=== PATIENT | male | born 1960 | race Caucasian/White ===

== ENCOUNTER 2017-04-08 20:49 | Emergency (ER) | payer MEDICARE, SELFPAY ==
[2017-04-08 21:34] VITALS: BMI 24.3
--- NOTE | 2017-04-08 21:39 | XR_ITS ---
XR shoulder RT min 2V HISTORY: ITS.REASON: PAING AN POPPING ORDERING PHYSICIAN: Sabas Scott PATIENT AGE: 57 years COMPARISON: None FINDINGS: Mild osteoarthritic changes are present at the acromioclavicular joint. No fracture or dislocation evident. The glenohumeral joint is unremarkable. IMPRESSION: Mild osteoarthritic changes of the AC joint otherwise
[2017-04-08 23:01] VITALS: BP 136/94; PULSE 93; RESP 18; TEMP 37.4; O2SAT 99; BMI 24.3
--- NOTE | 2017-04-08 23:16 | HMH.EDUTC ---
[facility] [place] [facility] Disposition Clinical Impression: Right shoulder pain Qualifiers: Chronicity: acute Qualified Code(s): M25.511 - Pain in right shoulder AC (acromioclavicular) joint arthritis Qualifiers: Laterality: right Qualified Code(s): M19.011 - Primary osteoarthritis, right shoulder Disposition: Home, Self-Care Condition on Discharge: Good Instructions: How to Use a Sling, DI for Shoulder Pain, DI for Arthritis Additional Instructions: * sling tonight until you see PCP tomorrow then they can decide if they want you to continue to wear the sling or not. * Rest * ice 15-20 mins tonight and if that doesn't help, try heat * Toradol was given to help with pain tonight. * Keep already scheduled appt tomorrow. Be sure to tell them you were here so they can review xray. Referrals: Cortez Martinez MD [Primary Care Provider] - (Keep appt with MIKHAIL Avina tomorrow. ) Time of Disposition: 23:28 Medical Decision Making Vital Signs: 04/08/17 23:01 Temperature 99.3 F Temperature Source Temporal Artery Scan Pulse Rate [Right Radial] 93 H Respiratory Rate 18 Blood Pressure [Right Arm] 136/94 Blood Pressure Mean [Right Arm] 108 Blood Pressure Source [Right Arm] Automatic Cuff Blood Pressure Position [Right Arm] Sitting 02 Sat by Pulse Oximetry 99 Oxygen Delivery Method Room Air Orders (Tests/Meds): ED MEDICATIONS Discontinued Medications Generic Name Dose Route Start Last Admin Trade Name Freq PRN Reason Stop Dose Admin Ketorolac Tromethamine 30 mg 04/08/17 23:24 Toradol 30mg/Ml Vial IM 04/08/17 23:25 ONCE ONE - Radiology Data #1 Image(s): Shoulder Image Reviewed: Yes I have reviewed radiologist's interpretation AC joint arthritis but otherwise, negative - Jose Inquiry Pt receiving controlled substance: No [facility] [place] HPI - General Stated complaint: ao fell 3 mthns ago pain/popping right shoulder Time Seen by Provider: 04/08/17 23:16 Mode of Arrival: Family Vehicle Source of Information: Patient Limitations: No Limitations Description of Symptoms (Recalled from Triage Doc. by RN): PT STATES HE FELL ON THE CONCRETE 3 MONTHS AGO AND HIS RIGHT SHOULDER IS MORE TENDER AND FEELS LIKE IT IS POPPING. HEENT Symptoms (Recalled from RN notes): No Resp Symptoms (Recalled from RN notes): No Skin Symptoms (Recalled from RN notes): No MS Symptoms (Recalled from RN notes): Yes (RIGHT SHOULDER PAIN AND POPPING) Functional Status (Recalled from RN notes): NA - History of Present Illness Provider Complaint: c/o right shoulder pain x 3 months. Here tonight because he has appointment with primary care tomorrow and wants xrays. Has not been seen for shoulder pain since injury. Occasional ibuprofen isn't helping. Hasn't had any since maybe yesterday . I want to go ahead and have those xrays for tomorrow. Reports pain worse tonight. Fell on concrete 3 months ago. right onto this shoulder blade . Pain since that has been progressing. On gabapentin for legs and at last appt with PCP, asked for tramadol but hadn't heard back from them about it. Plans to ask for tramadol and an MRI tomorrow. Tonight he wants xray and something to help now so he can sleep. Pain worse with ROM. Denies N/T. PMHx of neck fusion, alcohol abuse (sober x 7 years per report), cirrhosis. Rvwd allergies. Rash with motrin but can take ibuprofen, aleve, advil, naproxen. Just can't take motrin - Related Data Previous Rx's Medication Instructions Recorded meclizine 25 mg tablet 25 mg PO ONCE PRN 90 Days #90 tab 03/07/17 albuterol sulfate HFA 90 2 puff INHALATION Q4H 90 Days #6.7 03/13/17 mcg/actuation aerosol inhaler g pantoprazole 40 mg tablet,delayed 40 mg PO BID 90 Days #180 tab 03/22/17 release Allergies Allergy/AdvReac Type Severity Reaction Status Date / Time ibuprofen [IBUPROFEN] Allergy Unknown Verified 04/08/17 23:05 Penicillins [PENICILLINS] Allergy Unknown Verified 04/08/17 23:05 - Worker's Comp Is this
--- NOTE | 2017-04-08 23:24 | ED_ITS ---
[facility] [place] Disposition Clinical Impression: Right shoulder pain Qualifiers: Chronicity: acute Qualified Code(s): M25.511 - Pain in right shoulder AC (acromioclavicular) joint arthritis Qualifiers: Laterality: right Qualified Code(s): M19.011 - Primary osteoarthritis, right shoulder Disposition: Home, Self-Care Condition on Discharge: Good Instructions: How to Use a Sling, DI for Shoulder Pain, DI for Arthritis Additional Instructions: * sling tonight until you see PCP tomorrow then they can decide if they want you to continue to wear the sling or not. * Rest * ice 15-20 mins tonight and if that doesn't help, try heat * Toradol was given to help with pain tonight. * Keep already scheduled appt tomorrow. Be sure to tell them you were here so they can review xray. Referrals: Cortez Martinez MD [Primary Care Provider] - (Keep appt with MIKHAIL Avina tomorrow. ) Time of Disposition: 23:28 Medical Decision Making Vital Signs: 04/08/17 23:01 Temperature 99.3 F Temperature Source Temporal Artery Scan Pulse Rate [Right Radial] 93 H Respiratory Rate 18 Blood Pressure [Right Arm] 136/94 Blood Pressure Mean [Right Arm] 108 Blood Pressure Source [Right Arm] Automatic Cuff Blood Pressure Position [Right Arm] Sitting 02 Sat by Pulse Oximetry 99 Oxygen Delivery Method Room Air Orders (Tests/Meds): ED MEDICATIONS Discontinued Medications Generic Name Dose Route Start Last Admin Trade Name Freq PRN Reason Stop Dose Admin Ketorolac Tromethamine 30 mg 04/08/17 23:24 Toradol 30mg/Ml Vial IM 04/08/17 23:25 ONCE ONE - Radiology Data #1 Image(s): Shoulder Image Reviewed: Yes I have reviewed radiologist's interpretation AC joint arthritis but otherwise, negative - Jose Inquiry Pt receiving controlled substance: No [facility] [place] HPI - General Stated complaint: ao fell 3 mthns ago pain/popping right shoulder Time Seen by Provider: 04/08/17 23:16 Mode of Arrival: Family Vehicle Source of Information: Patient Limitations: No Limitations Description of Symptoms (Recalled from Triage Doc. by RN): PT STATES HE FELL ON THE CONCRETE 3 MONTHS AGO AND HIS RIGHT SHOULDER IS MORE TENDER AND FEELS LIKE IT IS POPPING. HEENT Symptoms (Recalled from RN notes): No Resp Symptoms (Recalled from RN notes): No Skin Symptoms (Recalled from RN notes): No MS Symptoms (Recalled from RN notes): Yes (RIGHT SHOULDER PAIN AND POPPING) Functional Status (Recalled from RN notes): NA - History of Present Illness Provider Complaint: c/o right shoulder pain x 3 months. Here tonight because he has appointment with primary care tomorrow and wants xrays. Has not been seen for shoulder pain since injury. Occasional ibuprofen isn't helping. Hasn't had any since maybe yesterday . I want to go ahead and have those xrays for tomorrow. Reports pain worse tonight. Fell on concrete 3 months ago. right onto this shoulder blade . Pain since that has been progressing. On gabapentin for legs and at last appt with PCP, asked for tramadol but hadn't heard back from them about it. Plans to ask for tramadol and an MRI tomorrow. Tonight he wants xray and something to help now so he can sleep. Pain worse with ROM. Denies N/T. PMHx of neck fusion, alcohol abuse (sober x 7 years per report), cirrhosis. Rvwd allergies. Rash with motrin but can take ibuprofen, aleve, advil, naproxen. Just can't take motrin - Related Da
[2017-04-08 23:35] VITALS: BP 126/88; PULSE 89; RESP 18; TEMP 37.3; O2SAT 99
== END 2017-04-08 23:36 | disposition home or self-care (01) ==
LOC: ER 21:00 → UTC 21:04
PROVIDERS: Emergency Provider Nurse Practitioner Family; Family Provider Family Medicine; PCP Emergency Medicine
DX: M25.511 Pain in right shoulder (principal); M19.011 Primary osteoarthritis, right shoulder; Z88.0 Allergy status to penicillin; Z88.6 Allergy status to analgesic agent; J44.9 Chronic obstructive pulmonary disease, unspecified; I25.10 Atherosclerotic heart disease of native coronary artery without angina pectoris; Z95.5 Presence of coronary angioplasty implant and graft; E78.5 Hyperlipidemia, unspecified; I10 Essential (primary) hypertension; Z79.899 Other long term (current) drug therapy
CPT/HCPCS: G0463; 73030; 96372; 99202

== ENCOUNTER → 2017-04-09 12:30 | Outpatient (REF) | payer MEDICARE, SELFPAY ==
[2017-04-09 15:26] LABS: Alanine Aminotransferase 21 U/L (12-78); Albumin Level 3.8 gm/dL (3.4-5.0); Albumin/Globulin Ratio 1.2 (1.1-1.8); Alkaline Phosphatase 97 U/L (46-116); Anion Gap 12.3 mEq/L (5-15); Aspartate Amino Transferase 10 U/L (15-37); Bilirubin,Total 0.4 mg/dL (0.2-1.0); Blood Urea Nitrogen 13 mg/dL (7-18); Calcium 8.3 mg/dL (8.5-10.1); Carbon Dioxide 28 mmol/L (21.0-32.0); Chloride 103 mmol/L (98-107); Estimated Glomerular Filt Rate 77 ml/min (>60); GFR (African American) 94 ML/MIN (>60); Globulin 3.1 gm/dl (1.3-3.2); Glucose 77 mg/dL (74-106); Potassium 4.3 mmoL/L (3.5-5.1); Sodium 139 mmol/L (136-145); Total Protein,Serum 6.9 gm/dL (6.4-8.2)
== END ==
LOC: LAB 12:30
PROVIDERS: Visit Provider Nurse Practitioner Family
DX: R53.83 Other fatigue (principal)
CPT/HCPCS: 80053

== ENCOUNTER → 2017-07-30 16:10 | Outpatient (REF) | payer MEDICARE, SELFPAY ==
[2017-07-30 18:33] LABS: Amphetamine/Metha Screen,Urine Negative ng/mL (<1000); Barbiturates Screen,Urine Negative ng/mL (<200); Benzodiazepines Screen,Urine Negative ng/mL (200); Cannabinoid Screen,Urine Negative ng/mL (<50); Cocaine Screen,Urine Negative ng/g (<300); Methadone Screen,Urine Negative ng/mL (<300); Opiate Screen,Urine Negative ng/mL (<300); Phencyclidine Screen,Urine Negative ng/mL (<25)
== END ==
LOC: LAB 16:10
PROVIDERS: Visit Provider Nurse Practitioner Family
DX: Z79.899 Other long term (current) drug therapy (principal)
CPT/HCPCS: 80305

== ENCOUNTER → 2017-10-25 09:39 | Outpatient (REF) | payer MEDICARE, SELFPAY ==
[2017-10-25 18:12] LABS: Benzodiazepines Screen,Urine Negative ng/mL (<200); Cannabinoid Screen,Urine Negative ng/mL (<50); Cocaine Screen,Urine Negative ng/mL (<300); Methadone Screen,Urine Negative ng/mL (<300); Opiate Screen,Urine Negative ng/mL (<300); Phencyclidine Screen,Urine Negative ng/mL (<25)
[2017-10-25 19:03] LABS: Amphetamine/Metha Screen,Urine Negative ng/mL (<1000); Barbiturates Screen,Urine Negative ng/mL (<200)
== END ==
LOC: LAB 09:39
PROVIDERS: Visit Provider Nurse Practitioner Family
DX: M54.5 Low back pain (principal)
CPT/HCPCS: 80305

== ENCOUNTER → 2018-04-11 17:00 | Outpatient (CLI) | payer MEDICARE, SELFPAY ==
[2018-04-11 17:48] LABS: Basophils # 0.1 K/mm3 (0-0.2); Basophils % 0.8 % (0.1-2.0); Eosinophils # 0.1 K/mm3 (0.0-0.4); Eosinophils % 1.3 % (0.1-12.0); Hematocrit 50.4 % (42.0-52.0); Hemoglobin 16.5 g/dL (14.1-18.0); Lymphocytes # 2.3 K/mm3 (0.7-4.5); Lymphocytes % 29.6 % (10-50); Mean Corpuscular HGB Conc 32.7 g/dL (31.8-35.4); Mean Corpuscular Hemoglobin 29.8 pg (27.0-31.2); Mean Corpuscular Volume 91.1 fl (80-94); Mean Platelet Volume 7.5 fl (7.4-10.4); Monocytes # 0.4 K/mm3 (0.1-1.0); Monocytes % 5.2 % (1.7-9.3); Neutrophils # 4.9 K/mm3 (1.8-7.8); Neutrophils % 63.1 % (37.0-80.0); Platelet Count 309 K/mm3 (142-424); Red Blood Count 5.53 M/mm3 (4.60-6.20); White Blood Count 7.8 K/mm3 (4.8-10.8)
[2018-04-11 18:13] LABS: Alanine Aminotransferase 21 U/L (12-78); Albumin Level 4.2 gm/dL (3.4-5.0); Albumin/Globulin Ratio 1.3 (1.1-1.8); Alkaline Phosphatase 97 U/L (46-116); Anion Gap 12.6 mEq/L (5-15); Aspartate Amino Transferase 10 U/L (15-37); Bilirubin,Total 0.4 mg/dL (0.2-1.0); Blood Urea Nitrogen 15 mg/dL (7-18); Calcium 8.7 mg/dL (8.5-10.1); Carbon Dioxide 28 mmol/L (21.0-32.0); Chloride 104 mmol/L (98-107); Chol/HDL Ratio 4.9 (1-3.5); Cholesterol 206 mg/dL (140-200); Creatinine,Serum 1.06 mg/dL (0.70-1.30); Estimated Glomerular Filt Rate 72 ml/min (>60); Free T4 (Free Thyroxine) 1.08 ng/dl (0.76-1.46); GFR (African American) 87 ML/MIN (>60); Globulin 3.2 gm/dl (1.3-3.2); Glucose 79 mg/dL (74-106); HDL Cholesterol 42 mg/dL (27-67); LDL Cholesterol 144 mg/dL (0-130); Potassium 4.6 mmoL/L (3.5-5.1); Sodium 140 mmol/L (136-145); Total Protein,Serum 7.4 gm/dL (6.4-8.2); Triglycerides 99 mg/dL (30-200); VLDL Cholesterol 20 mg/dL (0-40)
[2018-04-11 20:00] LABS: Amphetamine/Metha Screen,Urine Negative ng/mL (<1000); Barbiturates Screen,Urine Negative ng/mL (<200); Benzodiazepines Screen,Urine Negative ng/mL (<200); Cannabinoid Screen,Urine Negative ng/mL (<50); Cocaine Screen,Urine Negative ng/mL (<300); Methadone Screen,Urine Negative ng/mL (<300); Opiate Screen,Urine Negative ng/mL (<300); Phencyclidine Screen,Urine Negative ng/mL (<25)
[2018-04-11 20:06] LABS: Hemoglobin A1C 5.4 % (0.0-7.0)
[2018-04-13 10:16] LABS: Vitamin D 25 Hydroxy 20.1 ng/mL (30.0-100.0)
== END ==
PROVIDERS: Visit Provider Nurse Practitioner Family
DX: R53.83 Other fatigue (principal); Z79.899 Other long term (current) drug therapy; E55.9 Vitamin D deficiency, unspecified
CPT/HCPCS: 80053; 80061; 80305; 82652; 83036; 84439; 84443; 85025

== ENCOUNTER → 2018-05-03 10:55 | Outpatient (CLI) | payer MEDICARE, SELFPAY ==
[2018-05-03 11:58] LABS: Amphetamine/Metha Screen,Urine Negative ng/mL (<1000); Barbiturates Screen,Urine Negative ng/mL (<200); Benzodiazepines Screen,Urine Negative ng/mL (<200); Cannabinoid Screen,Urine Negative ng/mL (<50); Cocaine Screen,Urine Negative ng/mL (<300); Methadone Screen,Urine Negative ng/mL (<300); Opiate Screen,Urine Negative ng/mL (<300); Phencyclidine Screen,Urine Negative ng/mL (<25)
[2018-05-12 09:26] LABS: Alprazolam Negative (Cutoff=100); Benzodiazepines Negative ng/mL (Cutoff=100); Clonazepam Negative (Cutoff=100); Flurazepam Negative (Cutoff=100); Lorazepam Negative (Cutoff=100); Midazolam Negative (Cutoff=100); Temazepam Negative (Cutoff=100); Triazolam Negative (Cutoff=100)
== END ==
PROVIDERS: Visit Provider Nurse Practitioner Family
DX: M25.511 Pain in right shoulder (principal); Z79.899 Other long term (current) drug therapy
CPT/HCPCS: 80305; 80346

== ENCOUNTER → 2018-05-09 10:44 | Outpatient (CLI) | payer MEDICARE, SELFPAY ==
--- NOTE | 2018-05-09 10:51 | XR_ITS ---
XR chest 2V HISTORY: ITS.REASON: cough ORDERING PHYSICIAN: Tatum Avina PATIENT AGE: 58 years Technique: PA and lateral chest COMPARISON Previous chest film from 05/29/2015 FINDINGS: Lungs well expanded clear with nothing definitely acute. Previous median sternotomy heart ramu and mediastinal structures appear satisfactory. Normal pulmonary vascularity No pneumothorax no pleural effusion. Chest wall unremarkable. There is mild likely old compression fracture at lower T-spine at approximately T9.. IMPRESSION Lungs clear with nothing definitely acute. No pneumonia s evident Median sternotomy. Mild old compression fracture lower T-spine
== END ==
PROVIDERS: PCP Nurse Practitioner Family; Visit Provider Nurse Practitioner Family
DX: F17.200 Nicotine dependence, unspecified, uncomplicated (principal); J44.9 Chronic obstructive pulmonary disease, unspecified; R05 Cough; R09.89 Other specified symptoms and signs involving the circulatory and respiratory systems
CPT/HCPCS: 71046

== ENCOUNTER → 2018-09-24 11:20 | Outpatient (POV) | payer MEDICARE, SELFPAY | PROVIDERS: Visit Provider Internal Medicine | DX: Z00.00 Encounter for general adult medical examination without abnormal findings (principal) ==

== ENCOUNTER → 2018-10-14 12:59 | Outpatient (CLI) | payer MEDICARE, SELFPAY ==
[2018-10-14 14:00] VITALS: PULSE 67
--- NOTE | 2018-10-14 14:33 | CT_ITS ---
PROCEDURE: CT LUNG SCREENING CLINICAL INDICATION: CURRENT TOBACCO USE Forty-four pack-year smoking history asymptomatic for lung cancer COMPARISON: No exams were available for comparison TECHNIQUE: The exam was performed on a GE Light Speed [address] scanner using 2.90 mGy CTDI. A low dose helical CT CHEST was performed on a multi-detector scanner. All CT scans at the facility use one or more dose reduction, viz: automated exposure control, ma/kV adjustment per patient size (including targeted exams where dose is matched to indication, i.e. head), or iterative reconstruction technique. The LDCT was performed in a facility that meets the criteria for the screening program. Data regarding this exam was submitted to ACR which is an approved registry. The order for this exam indicates that it came as a result of a lung cancer screening counseling shard decision-making visit that included all the elements required of such a visit including smoking cessation. The radiologist interpreting this exam meets the [facility] criteria for the LDCT lung cancer screening program. The exam is reported using the Lung-RADS classification scale and reported to the ACR registry. NOTE: This study was performed for the specific purposes of lung cancer screening and is not an alternative to diagnostic chest CT. RADIATION DOSE: CTDI vol(CT dose Index-volume) = 2.90mG DLP (Dose Length Product) = 107.86 mGcm FINDINGS: Prior CABG. Coronary artery calcification. COPD Three mm nodule right upper lobe anteriorly in this of pleural region. Calcified granuloma left lower lobe. Mild bibasilar atelectasis versus scarring. OTHER FINDINGS: There is mild wedging involving the T10 vertebral body. This appears old. Please correlate with clinical parameters. MRI if further value to determine the age of this finding if clinically warranted. IMPRESSION: Lung rads category 2 benign findings Recommendations: 12 month LDCT follow-up Dictated by: Toni Braden MD 10/20/2018 07:25 Electronically signed by Toni Braden MD in [place] 10/20/2018 07:26
== END ==
PROVIDERS: PCP Nurse Practitioner Family; Visit Provider Internal Medicine
DX: Z12.2 Encounter for screening for malignant neoplasm of respiratory organs (principal); Z87.891 Personal history of nicotine dependence; R06.02 Shortness of breath; J44.9 Chronic obstructive pulmonary disease, unspecified
CPT/HCPCS: 94060; 94618; 94640; 94726; 94729

== ENCOUNTER → 2018-11-05 10:21 | Outpatient (POV) | payer MEDICARE, SELFPAY | PROVIDERS: Visit Provider Internal Medicine | DX: Z00.00 Encounter for general adult medical examination without abnormal findings (principal) ==

== ENCOUNTER → 2019-06-18 11:15 | Outpatient (CLI) | payer MEDICARE, MEDICAID, SELFPAY ==
--- NOTE | 2019-06-18 11:20 | XR_ITS ---
PROCEDURE: XR HIP RT 2-3V W/PELVIS CLINICAL INDICATION: R Hip Pain COMPARISON: No exams were available for comparison FINDINGS: There are mild osteoarthritic changes of both hips seen on the AP view of the pelvis. Scattered pelvic phleboliths are noted. No acute fracture or dislocation. Vascular calcification present. No lytic or blastic change. There is some sclerosis of the right femoral head with some subchondral lucency noted on the abduction view. This does raises suspicion of avascular necrosis. MRI may provide further evaluation. IMPRESSION: Possible avascular necrosis of the right femoral head with mild osteoarthritic change. MRI may provide further evaluation. Dictated by: Toni Braden MD 06/18/2019 11:41 Electronically signed by Toni Braden MD in [place] 06/18/2019 11:41
== END ==
PROVIDERS: PCP Nurse Practitioner Family; Visit Provider Nurse Practitioner Family
DX: G62.9 Polyneuropathy, unspecified (principal); M25.551 Pain in right hip
CPT/HCPCS: 73502

== ENCOUNTER → 2019-07-01 07:50 | Outpatient (CLI) | payer MEDICARE, MEDICAID, SELFPAY ==
--- NOTE | 2019-07-01 07:50 | MR_ITS ---
PROCEDURE: MR HIP RT WO CON CLINICAL INDICATION: Avascular Necrosis R Hip Right hip pain COMPARISON: XR HIP RT 2-3V W/PELVIS from 06/18/2019 TECHNIQUE: Routine multiplanar multi echo sequences are performed without gadolinium enhancement. 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 This is hypointense on T1 with some heterogeneous hyperintensity on T2. The immediate subchondral region shows decreased T2 signal. These findings are consistent with avascular necrosis. There is a small right hip joint effusion. There is some edema in the right femoral neck and upper inner trochanteric region. There is a thin zone of decreased T1 signal along the lower periphery of the altered signal intensity. 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 The left hip has an unremarkable appearance.. 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 Small right hip joint effusion also noted. Incidental note is made of edema in the right femoral neck Dictated by: Toni Braden MD 07/02/2019 12:06 Electronically signed by Toni Braden MD in [place] 07/02/2019 12:06
== END ==
PROVIDERS: PCP Nurse Practitioner Family; Visit Provider Nurse Practitioner Family
DX: M87.051 Idiopathic aseptic necrosis of right femur (principal)
CPT/HCPCS: 73721

== ENCOUNTER → 2019-11-25 17:48 | Outpatient (CLI) | payer MEDICARE, MEDICAID, SELFPAY ==
[2019-11-25 18:08] LABS: Basophils # 0.1 K/mm3 (0-0.2); Basophils % 0.7 % (0.1-2.0); Eosinophils # 0.4 K/mm3 (0.0-0.4); Eosinophils % 4.4 % (0.1-12.0); Hemoglobin 14.9 g/dL (14.1-18.0); Lymphocytes # 2.5 K/mm3 (0.7-4.5); Lymphocytes % 30.2 % (10-50); Mean Corpuscular HGB Conc 33.1 g/dL (31.8-35.4); Mean Corpuscular Hemoglobin 29.6 pg (27.0-31.2); Mean Corpuscular Volume 89.4 fl (80-94); Mean Platelet Volume 7.7 fl (7.4-10.4); Monocytes # 0.6 K/mm3 (0.1-1.0); Monocytes % 6.7 % (1.7-9.3); Neutrophils # 4.8 K/mm3 (1.8-7.8); Platelet Count 342 K/mm3 (142-424); Red Blood Count 5.03 M/mm3 (4.60-6.20); Red Cell Distribution Width 13.7 % (11.5-17.5); White Blood Count 8.3 K/mm3 (4.8-10.8)
[2019-11-25 18:19] LABS: Chloride 106 mmol/L (98-107)
[2019-11-25 18:20] LABS: Sodium 142 mmol/L (136-145)
[2019-11-25 18:22] LABS: Alanine Aminotransferase 11 U/L (12-78); Albumin/Globulin Ratio 1.4 (1.1-1.8); Alkaline Phosphatase 80 U/L (38-126); Aspartate Amino Transferase 23 U/L (17-59); Bilirubin,Total 0.3 mg/dl (0.2-1.3); Blood Urea Nitrogen 9 mg/dl (9-20); Carbon Dioxide 28 mmol/L (22.0-30.0); Cholesterol 198 mg/dl (140-200); Estimated Glomerular Filt Rate 99 ml/min (>60); GFR (African American) 120 ML/MIN (>60); Globulin 2.8 g/dL (1.3-3.2); Total Protein,Serum 6.8 g/dl (6.3-8.2); Triglycerides 235 mg/dl (30-150); VLDL Cholesterol 47 mg/dL (0-40)
[2019-11-25 18:23] LABS: Glucose 91 mg/dl (74-100); HDL Cholesterol 40 mg/dl (40-60)
[2019-11-25 18:34] LABS: Direct LDL Cholesterol 131.53 mg/dL (100-129)
[2019-11-25 18:40] LABS: T4 (Thyroxine) 9.7 ug/dl (5.53-11.0)
[2019-11-25 18:54] LABS: Thyroid Stimulating Hormone 1.59 uIU/mL (0.465-4.68)
[2019-11-27 11:12] LABS: PSA, Free 0.23 ng/mL; Prostate Specific Ag 1.7 ng/mL (0.0-4.0)
== END ==
PROVIDERS: Visit Provider Nurse Practitioner Family
DX: G62.9 Polyneuropathy, unspecified (principal); I10 Essential (primary) hypertension; R53.83 Other fatigue; R06.02 Shortness of breath; Z12.5 Encounter for screening for malignant neoplasm of prostate
CPT/HCPCS: 80053; 80061; 84153; 84154; 84436; 84443; 85025

== ENCOUNTER 2019-12-01 16:39 | Observation (INO) | payer MEDICARE, MEDICAID, SELFPAY ==
[2019-12-01 16:41] VITALS: BP 103/79; PULSE 92; RESP 18; TEMP 36.6; O2SAT 100; BMI 23.6
[2019-12-01 17:05] LABS: Basophils # 0.1 K/mm3 (0-0.2); Basophils % 0.6 % (0.1-2.0); Eosinophils # 0.3 K/mm3 (0.0-0.4); Eosinophils % 2.1 % (0.1-12.0); Hematocrit 51.3 % (42.0-52.0); Hemoglobin 17.1 g/dL (14.1-18.0); Lymphocytes # 2.6 K/mm3 (0.7-4.5); Lymphocytes % 19.9 % (10-50); Mean Corpuscular HGB Conc 33.3 g/dL (31.8-35.4); Mean Corpuscular Hemoglobin 29.7 pg (27.0-31.2); Mean Corpuscular Volume 89.2 fl (80-94); Mean Platelet Volume 7.4 fl (7.4-10.4); Monocytes # 0.9 K/mm3 (0.1-1.0); Monocytes % 7.1 % (1.7-9.3); Neutrophils # 9.2 K/mm3 (1.8-7.8); Neutrophils % 70.2 % (37.0-80.0); Platelet Count 372 K/mm3 (142-424); Red Blood Count 5.75 M/mm3 (4.60-6.20); Red Cell Distribution Width 13.5 % (11.5-17.5); White Blood Count 13.1 K/mm3 (4.8-10.8)
[2019-12-01 17:06] LABS: Chloride 96 mmol/L (98-107); Sodium 138 mmol/L (136-145)
[2019-12-01 17:07] LABS: Potassium 3.3 mmoL/L (3.5-5.1)
[2019-12-01 17:09] LABS: Alanine Aminotransferase 15 U/L (12-78); Albumin Level 4.7 g/dl (3.5-5.0); Alkaline Phosphatase 92 U/L (38-126); Aspartate Amino Transferase 27 U/L (17-59); Bilirubin,Total 0.5 mg/dl (0.2-1.3); Blood Urea Nitrogen 14 mg/dl (9-20); Creatinine Clearance Estimated 53 mL/min (50-200); Estimated Glomerular Filt Rate 45 ml/min (>60); GFR (African American) 54 ML/MIN (>60)
[2019-12-01 17:10] LABS: Albumin/Globulin Ratio 1.4 (1.1-1.8); Anion Gap 13.3 mEq/L (5-15); Calcium 9.6 mg/dl (8.4-10.2); Carbon Dioxide 32 mmol/L (22.0-30.0); Globulin 3.4 g/dL (1.3-3.2); Glucose 81 mg/dl (74-100); Total Protein,Serum 8.1 g/dl (6.3-8.2)
[2019-12-01 17:29] VITALS: BP 110/70; PULSE 80; O2SAT 95
--- NOTE | 2019-12-01 17:29 | PC.NURSE ---
Dr Mackay paged.
--- NOTE | 2019-12-01 17:31 | PC.NURSE ---
speaking to dr maldonado
--- NOTE | 2019-12-01 17:32 | PC.NURSE ---
Pt's pcp paged.
--- NOTE | 2019-12-01 17:33 | HMH.EDGENADL ---
ED Disposition Clinical Impression: Dehydration, LAYLA (acute kidney injury) Leukocytosis Qualifiers: Leukocytosis type: unspecified Qualified Code(s): D72.829 - Elevated white blood cell count, unspecified Disposition: Admitted As Inpatient Condition on Discharge: Good Referrals: Loc Huffman APRN [Primary Care Provider] - - Critical Care Critical Care Time: No Attestation: On 12/01/19, the high probability of a clinically significant, sudden or life threatening deterioration of the following system(s) required my full and direct attention, intervention and personal management. The time I documented below is in addition to time spent performing reported procedures but includes the following listed in this critical care notation. Medical Decision Making - Medical Records Medical records reviewed: Yes: I reviewed the patient's medical records. - Jose Inquiry Pt receiving controlled substance: No Vital Signs: 12/01/19 16:41 12/01/19 17:29 Temperature 97.9 F Temperature Source Temporal Artery Scan Pulse Rate [Right] 92 H 80 Respiratory Rate 18 Blood Pressure [Right Arm] 103/79 L 110/70 Blood Pressure Mean [Right Arm] 87 83 Blood Pressure Source [Right Arm] Automatic Cuff Blood Pressure Position [Right Arm] Sitting 02 Sat by Pulse Oximetry 100 95 - Lab Data Lab Results 12/01/19 16:50: WBC 13.1 H, RBC 5.75, Hgb 17.1, Hct 51.3, MCV 89.2, MCH 29.7, MCHC 33.3, RDW 13.5, Plt Count 372, MPV 7.4, Neut % (Auto) 70.2, Lymph % (Auto) 19.9, [place] % (Auto) 7.1, Eos % (Auto) 2.1, Baso % (Auto) 0.6, Neut # (Auto) 9.2 H, Lymph # (Auto) 2.6, [place] # (Auto) 0.9, Eos # (Auto) 0.3, Baso # (Auto) 0.1 12/01/19 16:50: Sodium 138, Potassium 3.3 L, Chloride 96 L, Carbon Dioxide 32 H, Anion Gap 13.3, BUN 14, Creatinine 1.60 H, Estimated Creat Clear 53, Estimated GFR 45 L, Est GFR ( Amer) 54 L, Glucose 81, Calcium 9.6, Total Bilirubin 0.5, AST 27, ALT 15, Alkaline Phosphatase 92, Total Protein 8.1, Albumin 4.7, Globulin 3.4 H, Albumin/Globulin Ratio 1.4 Result diagrams: 12/01/19 16:50 12/01/19 16:50 Orders (Tests/Meds): ED MEDICATIONS Generic Name Dose Route Start Last Admin Trade Name Isacc PRN Reason Stop Dose Admin Sodium Chloride 1,000 mls @ 999 mls/hr 12/01/19 17:00 12/01/19 17:05 Sod Chlor 0.9% 1000ml Bag IV 12/01/19 18:00 999 mls/hr .Q1H1M MARKELL Administration ORDERS Category Date Time Status Covid-19 IgG/IgM ([facility]) Routine Lab 12/01/19 17:32 Ordered Medical Decision Narrative: 59-year-old male presenting for IV fluids at the request of PCP for clinical dehydration. Patient is nontoxic, afebrile, hemodynamically stable, oxygenating well on room air, nonfocal, neuro intact. Normal vitals on arrival. Creatinine is elevated today at 1.6 consistent with an LAYLA which is likely due to dehydration. He also has a leukocytosis of 13,000 and however no clinical signs or symptoms of infectious etiology. The rest of his CBC is actionable. I spoke to the physician who sent him here and we both agree that the patient should be admitted for rehydration. I also spoke with the admitting physician who will manage him inpatient. Patient's symptoms improved after fluids here. General Adult HPI - General Chief complaint: Recheck/Abnormal Lab/Rx Stated complaint: Sent by Dr. TREJO Time Seen by Provider: 12/01/19 17:00 Mode of Arrival: Ambulatory Limitations: No Limitations Description of Symptoms (Recalled from ER Triage Doc. by RN): Pt states Dr TREJO put him on a fluid pill and it has caused him to urinate perfusely and now he feels he is dehydrated. Pt states his muscle are drawing up and cuasing him pain. - History of Present Illness HPI narrative: This is a 59-year-old male who presents via request from PCP for rehydration. Patient is undergoing preoperative clearance for a total hip replacement and told his physician today that he had charley horses and numbness and tingling in his extr
[2019-12-01 18:02] LABS: Coronavirus 19 IgG Antibody Negative (Negative); Coronavirus 19 IgM Antibody Negative (Negative)
[2019-12-01 18:54] VITALS: BP 110/70; PULSE 80; RESP 18; TEMP 36.6; O2SAT 95
--- NOTE | 2019-12-01 19:11 | PC.NURSE ---
report given to renetta
[2019-12-01 20:00] VITALS: BP 103/78; PULSE 85; RESP 18; TEMP 36.8; O2SAT 98; BMI 21.6
[2019-12-01 21:00] VITALS: PULSE 85; RESP 18; O2SAT 98
[2019-12-02 04:00] VITALS: BP 115/78; PULSE 75; RESP 18; TEMP 36.4; O2SAT 98
[2019-12-02 05:07] VITALS: BMI 21.5
--- NOTE | 2019-12-02 06:09 | PC.NURSE ---
shift summary, pt has rested well t/o shift, has ambulated several times to bathroom, has had no complaints of any SOA, chest pain, N/V/D, remains on room air with O2 sats at 98%, expiratory wheezes noted in upper lobes, pt did complain of hip pain one time this shift but states that he cannot take acetaminophen due to liver issues, no further complaints of pain, systolic 103-115, HR 75-85
[2019-12-02 06:36] LABS: Basophils # 0.1 K/mm3 (0-0.2); Basophils % 0.7 % (0.1-2.0); Eosinophils # 0.3 K/mm3 (0.0-0.4); Eosinophils % 2.9 % (0.1-12.0); Hematocrit 45.2 % (42.0-52.0); Lymphocytes # 2.7 K/mm3 (0.7-4.5); Lymphocytes % 28.4 % (10-50); Mean Corpuscular HGB Conc 33.4 g/dL (31.8-35.4); Mean Corpuscular Hemoglobin 29.5 pg (27.0-31.2); Mean Corpuscular Volume 88.5 fl (80-94); Mean Platelet Volume 7.3 fl (7.4-10.4); Monocytes # 0.6 K/mm3 (0.1-1.0); Monocytes % 6.2 % (1.7-9.3); Neutrophils # 5.9 K/mm3 (1.8-7.8); Neutrophils % 61.9 % (37.0-80.0); Platelet Count 302 K/mm3 (142-424); Red Blood Count 5.11 M/mm3 (4.60-6.20); Red Cell Distribution Width 13.8 % (11.5-17.5); White Blood Count 9.5 K/mm3 (4.8-10.8)
[2019-12-02 06:42] LABS: Chloride 103 mmol/L (98-107); Sodium 139 mmol/L (136-145)
[2019-12-02 06:43] LABS: Potassium 3.6 mmoL/L (3.5-5.1)
[2019-12-02 06:46] LABS: Anion Gap 10.6 mEq/L (5-15); Blood Urea Nitrogen 14 mg/dl (9-20); Calcium 8.8 mg/dl (8.4-10.2); Carbon Dioxide 29 mmol/L (22.0-30.0); Creatinine Clearance Estimated 71 mL/min (50-200); Estimated Glomerular Filt Rate 69 ml/min (>60); GFR (African American) 83 ML/MIN (>60); Glucose 98 mg/dl (74-100)
[2019-12-02 07:43] LABS: Hemoglobin 15.1 g/dL (14.1-18.0)
--- NOTE | 2019-12-02 07:50 | HMH.PHAVTE ---
[facility] VTE Monitoring - Patient Demographics Admission date: 12/02/19 Report Date: 12/02/19 Time: 07:50 Allergies/Adverse Reactions: Patient Allergies ibuprofen [IBUPROFEN] Allergy (Unknown, Verified 12/01/19 20:00) Penicillins [PENICILLINS] Allergy (Unknown, Verified 12/01/19 20:00) Height: 1.78 m Weight: 68.294 kg Patient Problems: Current Active Problems Dehydration (Acute) LAYLA (acute kidney injury) (Acute) Leukocytosis (Acute) - VTE Risk Labs: VTE Related Lab Results Hgb 15.1 g/dL (14.1-18.0) D 12/02/19 06:18 Hct 45.2 % (42.0-52.0) 12/02/19 06:18 Plt Count 302 K/mm3 (142-424) 12/02/19 06:18 BUN 14 mg/dl (9-20) 12/02/19 06:18 Creatinine 1.10 mg/dl (0.66-1.25) D 12/02/19 06:18 Estimated Creat Clear 71 mL/min (50-200) 12/02/19 06:18 Was VTE Risk Assessment Performed: Yes VTE Score: 8 VTE Risk Level: Moderate Risk Clinical Trial Participant: No - Prophylaxis VTE Prophylaxis Ordered?: Yes Types of VTE Prophylaxis: TEDS Knee High
--- NOTE | 2019-12-02 07:55 | HMH.PHAINT ---
CLARIFIED HOME MEDICATION LIST WITH HOME PHARMACY
[2019-12-02 08:00] VITALS: BP 118/87; PULSE 84; RESP 18; TEMP 37.3; O2SAT 92
--- NOTE | 2019-12-02 09:16 | HMH.DCSUM ---
General - General Admission date:: 12/01/19 Discharge date: 12/02/19 Objective Vital signs: Temp Pulse Resp BP Pulse Ox 99.1 F 84 18 118/87 92 L 12/02/19 08:00 12/02/19 08:00 12/02/19 08:00 12/02/19 08:00 12/02/19 08:00 no acute distress - *Routine HEENT Exam Head: Present: normocephalic. Absent: tenderness of temporal artery ENT: Present: mucous membranes moist. Absent: sinus tenderness - *Routine Neck Exam Present: full ROM, trachea midline. Absent: JVD, tracheal deviation - *Routine Respiratory Exam Present: wheezes - *Routine Cardiovascular Exam Present: RRR - *Routine Abdominal Exam Present: soft, normoactive bowel sounds. Absent: tenderness, firm - *Routine Extremities Exam Present: full ROM, pulses intact. Absent: clubbing, edema - *Routine Skin Exam Present: intact, warm. Absent: cyanosis, erythema - *Routine Neurological Exam Present: alert, oriented X3. Absent: altered mental status - Routine Psychiatric Exam Present: normal affect, normal thought process, cooperative Results Labs on day of discharge: Labs from last 24 hours 12/02/19 12/02/19 12/01/19 06:18 06:18 16:50 WBC 9.5 D RBC 5.11 Hgb 15.1 D Hct 45.2 MCV 88.5 MCH 29.5 MCHC 33.4 RDW 13.8 Plt Count 302 MPV 7.3 L Neut % (Auto) 61.9 Lymph % (Auto) 28.4 [place] % (Auto) 6.2 Eos % (Auto) 2.9 Baso % (Auto) 0.7 Neut # (Auto) 5.9 Lymph # (Auto) 2.7 [place] # (Auto) 0.6 Eos # (Auto) 0.3 Baso # (Auto) 0.1 Sodium 139 Potassium 3.6 Chloride 103 Carbon Dioxide 29 Anion Gap 10.6 BUN 14 Creatinine 1.10 D Estimated Creat Clear 71 Estimated GFR 69 Est GFR ( Amer) 83 D Glucose 98 D Calcium 8.8 Total Bilirubin AST ALT Alkaline Phosphatase Total Protein Albumin Globulin Albumin/Globulin Ratio SARS-CoV-2 IgG Ab (Rapid) Negative SARS-CoV-2 IgM Ab (Rapid) Negative 12/01/19 12/01/19 16:50 16:50 WBC 13.1 H RBC 5.75 Hgb 17.1 Hct 51.3 MCV 89.2 MCH 29.7 MCHC 33.3 RDW 13.5 Plt Count 372 MPV 7.4 Neut % (Auto) 70.2 Lymph % (Auto) 19.9 [place] % (Auto) 7.1 Eos % (Auto) 2.1 Baso % (Auto) 0.6 Neut # (Auto) 9.2 H Lymph # (Auto) 2.6 [place] # (Auto) 0.9 Eos # (Auto) 0.3 Baso # (Auto) 0.1 Sodium 138 Potassium 3.3 L Chloride 96 L Carbon Dioxide 32 H Anion Gap 13.3 BUN 14 Creatinine 1.60 H Estimated Creat Clear 53 Estimated GFR 45 L Est GFR ( Amer) 54 L Glucose 81 Calcium 9.6 Total Bilirubin 0.5 AST 27 ALT 15 Alkaline Phosphatase 92 Total Protein 8.1 Albumin 4.7 Globulin 3.4 H Albumin/Globulin Ratio 1.4 SARS-CoV-2 IgG Ab (Rapid) SARS-CoV-2 IgM Ab (Rapid) - Additional Comments Rounded with Dr. Crouch, all orders per Dr. Crouch: 1. We will discharge home today 2. Follow-up with PCP in 1 week 3. Discharge Plan - Patient Discharge Instructions - Follow up Plan Home Medications: Home Medications Medication Instructions Recorded Confirmed Type albuterol sulfate 90 mcg/actuation 2 puff INHALATION Q4-6H PRN 90 10/07/19 12/01/19 Rx aerosol inhaler Days #3 units Atorvastatin Calcium [Lipitor 80mg 80 mg PO DAILY 12/01/19 12/01/19 History Tablet*] Fluoxetine HCl 20 mg PO DAILY 12/01/19 12/01/19 History Losartan/Hydrochlorothiazide 1 tab PO DAILY 12/01/19 12/02/19 History [Losartan-Hctz 50-12.5 mg Tab] Meclizine HCl [[employer] 2] 25 mg PO DAILYP PRN 12/01/19 12/02/19 History Nebivolol HCl [Bystolic] 5 mg PO DAILY 12/01/19 12/02/19 History Nitroglycerin 0.4 mg PO Q5MINP PRN 12/01/19 12/02/19 History Pantoprazole Sodium 40 mg PO BID 12/01/19 12/02/19 History Trazodone HCl 150 mg PO HSP PRN 12/01/19 12/02/19 History Prescriptions/Medication Reconciliation: No Action albuterol sulfate 90 mcg/actuation aerosol inhaler 2 puff INHALATION Q4-6H
--- NOTE | 2019-12-02 09:24 | HMH.HPDC ---
General - General Admission date:: 12/01/19 Discharge date: 12/02/19 *Admission Date: 12/02/19 *Chief complaint: Muscle Cramps *History of present illness: Patient presents to emergency department complaining of muscle cramps, numbness, and tingling of bilateral lower extremities and feeling dehydrated. He reports he was seen by cardiology while being worked up for surgery clearance for right hip replacement and started on losartan/HCTZ. He reports he was urinating profusely and was having charley horses. He denies N/V/D or fever/chills/body aches. He denies chest pain shortness of breath or cough [facility] History Medical History: Reports:: Chronic Obstructive Pulmonary Disease (COPD), Coronary Artery Disease, Depression, Hyperlipidemia, Hypertension, Myocardial Infarction Denies:: Cancer, Diabetes Mellitus Type 1, Diabetes Mellitus Type 2, MRSA *Have you ever received a pneumonia vaccine?: No *Have you received a flu vaccine this season?: No Other Medical History: Reports: Arthritis, Other Other Surgeries: Yes: CABG, Cardiac Catheterization, Cardiac Surgery, Hernia Repair, Other Amputation: No Fractures: No - *Social History Last grade of school completed: 9th or 10th Smoking Status: Current every day smoker Tobacco Type: cigarettes # Packs/Day (cigarettes): 1 #Yrs smoked (if former smoker): 40 Alcohol Intake: former Alcohol Intake Frequency:: 3 or more drinks per day Substance Use Type: denies use *Occupational Status:: disabled Household Members: spouse *Travel in the last 8 weeks: None - Psychiatric History Pschychiatric History:: Reports:: Depression Family Hx:: Heart Attack, Hypertension Review of Systems - Review of Systems Review of systems:: pertinent systems reviewed and negative unless documented below - Constitutional Reports lack of energy, Reports weakness, Denies body ache(s), Denies chills - Eyes Denies blind spots, Denies blurry vision - ENT Denies bleeding gums, Denies poor balance - *Cardiovascular Denies chest pain, Denies shortness of breath with activity - *Respiratory Denies chest congestion, Denies cough, Denies shortness of breath - *Gastrointestinal Denies abdominal pain - *Genitourinary Denies difficulty urinating, Denies side pain - *Musculoskeletal Reports muscle cramps, Reports muscle weakness, Denies neck pain, Denies numbness - Integumentary/Breasts Denies change in skin color, Denies yellowing of the skin - *Neurologic Denies abnormal walking, Denies memory loss - Psychiatric Denies abnormal sleep pattern, Denies lack of enjoyment - Endocrine Denies cold intolerance, Denies heat intolerance - Hematologic/Lymphatic Denies easy bleeding, Denies easy bruising - Allergic/Immunologic Denies itchy eyes, Denies tongue swelling Exam Vital signs and Labs for Last 24 Hours: Temp Pulse Resp BP Pulse Ox 99.1 F 84 18 118/87 92 L 12/02/19 08:00 12/02/19 08:00 12/02/19 08:00 12/02/19 08:00 12/02/19 08:00 Laboratory Results - last 24 hr 12/01/19 16:50: WBC 13.1 H, RBC 5.75, Hgb 17.1, Hct 51.3, MCV 89.2, MCH 29.7, MCHC 33.3, RDW 13.5, Plt Count 372, MPV 7.4, Neut % (Auto) 70.2, Lymph % (Auto) 19.9, Alger % (Auto) 7.1, Eos % (Auto) 2.1, Baso % (Auto) 0.6, Neut # (Auto) 9.2 H, Lymph # (Auto) 2.6, Alger # (Auto) 0.9, Eos # (Auto) 0.3, Baso # (Auto) 0.1 12/01/19 16:50: Sodium 138, Potassium 3.3 L, Chloride 96 L, Carbon Dioxide 32 H, Anion Gap 13.3, BUN 14, Creatinine 1.60 H, Estimated Creat Clear 53, Estimated GFR 45 L, Est GFR ( Amer) 54 L, Glucose 81, Calcium 9.6, Total Bilirubin 0.5, AST 27, ALT 15, Alkaline Phosphatase 92, Total Protein 8.1, Albumin 4.7, Globulin 3.4 H, Albumin/Globulin Ratio 1.4 12/01/19 16:50: SARS-CoV-2 IgG Ab (Rapid) Negative, SARS-CoV-2 IgM Ab (Rapid) Negative 12/02/19 06:18: WBC 9.5 D, RBC 5.11, Hgb 15.1 D, Hct 45.2, MCV 88.5, MCH 29.5, MCHC 33.4, RDW 13.8, Plt Count 302, MPV 7.3 L, Neut % (Auto) 61.9, Lymph % (Auto) 28.4, Mo
--- NOTE | 2019-12-02 17:55 | PC.NURSE ---
THIS RN PROVIDED D/C INSTRUCTIONS TO PATIENT AND SIGNIFICANT OTHER, VERBALIZED AN UNDERSTANDING.
== END 2019-12-02 12:42 | disposition home or self-care (01) ==
LOC: ER 17:39 → 2ND 18:09
PROVIDERS: Admitting Provider Emergency Medicine; Emergency Provider Physician Assistant; PCP Nurse Practitioner Family; Visit Provider Emergency Medicine
DX: E86.0 Dehydration (principal); N17.9 Acute kidney failure, unspecified; I25.10 Atherosclerotic heart disease of native coronary artery without angina pectoris; J44.9 Chronic obstructive pulmonary disease, unspecified; Z72.0 Tobacco use; I25.2 Old myocardial infarction; I10 Essential (primary) hypertension; Z95.1 Presence of aortocoronary bypass graft; E78.5 Hyperlipidemia, unspecified; Z88.0 Allergy status to penicillin; Z88.8 Allergy status to other drugs, medicaments and biological substances; Z79.52 Long term (current) use of systemic steroids; Z79.899 Other long term (current) drug therapy
CPT/HCPCS: 80048; 80053; 85025; 86328; 93306; 96365; 99283; G0378

== ENCOUNTER → 2019-12-02 13:27 | Outpatient (CLI) | payer MEDICARE, MEDICAID, SELFPAY ==
--- NOTE | 2019-12-02 13:28 | CA_ITS ---
APPROVED REPORT EXAM: Comprehensive 2D, Doppler, and color-flow Echocardiogram Scrub Tech: Mary Jo Granado RT(R) Ht: 5 ft 10 in Wt: 162lbs BSA: 1.91 BP: 156/98 mmHg Indications: CP, COPD, smoker, HTN, PRUITT, hyperlipidemia, SOA, preop clearance hip surgery, CAD, CABG 2D Dimensions LVOT 2.31 cm (M/F) 1.5-2.5 M-Mode Dimensions RVDd 2.85 cm (0.9-2.6) LA Diam 2.33 cm (1.9-4.0) LVDd 4.10 cm (3.5-5.7) Ao Diam 3.48 cm (2.0-3.7) LVDs 3.18 cm (3.5-5.7) IVSd 0.86 cm (0.6-1.1) PWd 0.75 cm (0.6-1.1) EF (Teich) 45.70% FS 22.40% EDV (Teich) 74.20 mL ESV (Teich) 40.30 mL LV Diastology E Decel Time 210.00 (160-240 msec) E/A Ratio 0.7 MED E' 7.80 (< 7 cm/sec) E'/MED E' Ratio 6.69 (>14) LAT E' 8.00 (<10 cm/sec) E/LAT E' Ratio 6.53 (>14) Mitral Valve MV E Max Kimani. 52.00 (40-130 cm/s) MV A Velocity 71.00 (40-130 cm/s) E/A Ratio 0.74 MV Decel. Time 210.00 (160-240 ms) MV PHT 62.00 ms Left Ventricle Left atrium is mildly enlarged, left ventricle is normal size, mild concentric left ventricular hypertrophy, visually estimated ejection fraction 55% with no regional wall motion abnormality, grade 1 diastolic dysfunction seen without tissue Doppler evidence of raise left atrial pressure. Right Ventricle Right atrium and right ventricle mildly enlarged with normal contractility. Aortic Valve Aortic valve is minimally thickened and fibrosed, there is no aortic stenosis or aortic insufficiency. Mitral valve is grossly normal, there is mild mitral regurgitation. Mitral Valve Mitral valve is grossly normal, there is mild mitral regurgitation. Tricuspid Valve Tricuspid valve is grossly normal, there is mild tricuspid regurgitation. Pulmonic Valve Pulmonic valve is poorly visualized. Great Vessels Aortic root is normal size. Pericardium No significant pericardial effusion noted. Conclusion 1. Mild biatrial enlargement, normal left ventricular size, mild concentric left ventricular hypertrophy, visually estimated ejection fraction 55% with no regional wall motion abnormality, grade 1 diastolic dysfunction seen without tissue Doppler evidence of raise left atrial pressure. 2. Mildly enlarged right ventricle with normal contractility. 3. Mild mitral and tricuspid regurgitation. 4. No significant pericardial effusion noted. Electronically signed by : Lino Torre, 12/02/2019 18:34:23
== END ==
PROVIDERS: PCP Nurse Practitioner Family; Visit Provider Nurse Practitioner Family
DX: E78.5 Hyperlipidemia, unspecified (principal); F17.200 Nicotine dependence, unspecified, uncomplicated; I10 Essential (primary) hypertension; I25.2 Old myocardial infarction; I25.708 Atherosclerosis of coronary artery bypass graft(s), unspecified, with other forms of angina pectoris; J44.9 Chronic obstructive pulmonary disease, unspecified; R06.00 Dyspnea, unspecified; R07.89 Other chest pain; Z01.810 Encounter for preprocedural cardiovascular examination; Z95.1 Presence of aortocoronary bypass graft
CPT/HCPCS: 93306

== ENCOUNTER → 2019-12-05 15:46 | Outpatient (CLI) | payer MEDICARE, MEDICAID, SELFPAY ==
[2019-12-05 18:26] LABS: Anion Gap 15.4 mEq/L (5-15); Blood Urea Nitrogen 15 mg/dl (9-20); Calcium 9.5 mg/dl (8.4-10.2); Carbon Dioxide 28 mmol/L (22.0-30.0); Chloride 101 mmol/L (98-107); Estimated Glomerular Filt Rate 69 ml/min (>60); GFR (African American) 83 ML/MIN (>60); Glucose 75 mg/dl (74-100); Potassium 4.4 mmoL/L (3.5-5.1); Sodium 140 mmol/L (136-145)
== END ==
PROVIDERS: Visit Provider Internal Medicine Cardiovascular Disease
DX: E78.5 Hyperlipidemia, unspecified (principal); I10 Essential (primary) hypertension; I25.708 Atherosclerosis of coronary artery bypass graft(s), unspecified, with other forms of angina pectoris; J44.9 Chronic obstructive pulmonary disease, unspecified; R06.00 Dyspnea, unspecified; R07.89 Other chest pain; Z95.1 Presence of aortocoronary bypass graft
CPT/HCPCS: 36415; 80048

== ENCOUNTER → 2019-12-08 06:08 | Outpatient (CLI) | payer MEDICARE, MEDICAID, SELFPAY ==
--- NOTE | 2019-12-08 06:09 | US_ITS ---
APPROVED REPORT Exam Type: Lower Extremity Segmental Pressures Hotel Assistant General Manager: Beverly Dominguez RDCS Indications Claudication: Rest Pain: Current Smoker History of Smoking CAD Pressures/Indices Right Indices Left Indices Brachial 148.00 mmHg Brachial 139.00 mmHg Low Thigh 147.00 mmHg 0.99 Low Thigh 146.00 mmHg 0.99 Calf 152.00 mmHg 1.03 Calf 149.00 mmHg 1.01 Ankle(PT) 141.00 mmHg 0.95 Ankle(PT) 148.00 mmHg 1.00 Ankle(DP) 144.00 mmHg 0.97 Ankle(DP) 152.00 mmHg 1.03 Digit 140.00 mmHg 0.95 Digit 128.00 mmHg 0.86 Findings NORMAL PULSES NORMAL WAVEFORMS R KATE 1.0 L KATE 1.0 R TBI 1.0 LTBI .9 Conclusion NORMAL PULSES NORMAL WAVEFORMS R KATE 1.0 L KATE 1.0 R TBI 1.0 LTBI .9 Normal appearing resting noninvasive lower extremity arterial study. Electronically signed by : Toni Braden MD 12/09/2019 12:55:57
--- NOTE | 2019-12-08 06:09 | CA_ITS ---
APPROVED REPORT Exam: Pharmacologic Technologist: Beatriz Salinas Ht: 5 ft 10 in Wt: 162 lbs BSA: 1.91 m2 HR: 81 bpm BP: 135/92 mmHg Indications: Chest pain, CAD Medical History Medications: Amlodipine,,,,, Pantoprazole,,,,, Atorvastatin,,,,, Albuterol,,,,, Meclizine,,,,, Fluoxetine,,,,, Nitroglycerin,,,,, Trazodone,,,,, NeBivolol,,,,, Stress Test Details Test: LEXISCAN HR Resting HR: 76 bpm Max Heart Rate (APMHR): 162 bpm Max HR Achieved: 112 bpm Target HR (85% APMHR): 137 bpm % of APMHR: 69 Recovery HR: 96 bpm BP Resting BP: 135.0/92.0 mmHg Max BP: 143.0/85.0 mmHg Recovery BP: 143.0/85.0 mmHg ECG Clinical Reason for Termination: Completed Protocol Exercise duration: 04:00 min Highest Stage Achieved: Exercise capacity: 1.0 METs Stress ECG Conclusion Resting ECG: Normal sinus rhythm. Symptoms: None Arrhythmias/Ectopy: None ST-T Changes: < 1.[address] segment changes. Conclusion: Non-diagnostic lexiscan stress test. Patient received the infusion per protocol without chest pain. ST segment changes or arrhythmias. See the nuclear report for further information. Electronically signed by : Lino Torre, 12/09/2019 05:25:28
--- NOTE | 2019-12-08 06:09 | NM_ITS ---
APPROVED REPORT Exam: Nuclear Stress Test Indication: SOB, Pre op, CAD, CABG, HTN, High cholesterol, Tobacco use, Family history Patient Location: Outpatient Stress Tech: Beatriz Salinas ME Tech:Gabriela Dean, ARRT, RT (R)(N) Ht: 5 ft 10 in Wt: 150 lbs HR: 81 bpm BP: 135/92 mmHg BSA: 1.85 m2 BMI: 21.5 History: SOB, Pre op, CAD, CABG, HTN, High cholesterol, Tobacco use, Family history Procedure: Patient received a 0.4 mg of intravenous Lexiscan, resting heart rate 81 bpm, resting blood pressure 135/92 mmHg, with Lexiscan maximum heart rate achived was 111 bpm which is Less than 85 % of the maximum predicted heart rate and blood pressure was 104/70 mmHg. With Lexiscan, patient denied any complaint of chest pain. Electrocardiogram Resting electrocardiogram showed sinus rhythm, with Lexiscan there is less than 1.[address] segment depression noted from the baseline EKG. The EKG portion of the Lexiscan Myoview is nondiagnostic. Cardiac Stress and Resting SPECT Images: Cardiac Stress and Resting SPECT images were obtained using technetium 99m Myoview 29.1 mCi stress and 9.52 mCi at rest. Gated SPECT for the analysis of segmental wall motion and calculation of the ejection fraction also done. Cardiac stress and resting SPECT images show uniform myocardial activity, computer derived ejection fraction is 58% with no regional wall motion abnormality, right ventricle is normal size and contractility. Conclusion: 1. The EKG portion of the Lexiscan Myoview is nondiagnostic. 2. No scintigraphic evidence of reversible ischemia seen, computer derived ejection fraction is 58% with no regional wall motion abnormality, right ventricle is normal size and contractility. 3. Normal Lexiscan Myoview study. Electronically signed by : Lino Torre, 12/09/2019 05:32:03
--- NOTE | 2019-12-08 06:09 | US_ITS ---
PROCEDURE: US ABD. AORTA SCREENING CLINICAL INDICATION: rule out AAA Evaluate for abdominal aortic aneurysm COMPARISON: No exams were available for comparison FINDINGS: There is mild ectasia the mid upper abdominal aorta at 2.8 cm in maximum AP dimension. The lower abdominal aorta measures 2.3 cm. Right common iliac is 1.2 cm in left common iliac is 1 cm. Plaque is noted in the abdominal aorta IMPRESSION: Mild dilatation of the upper abdominal aorta at 2.8 cm. Dictated by: Toni Braden MD 12/08/2019 13:06 Toni Braden MD in [place] 12/08/2019 13:06
--- NOTE | 2019-12-08 06:09 | CA_ITS ---
APPROVED REPORT Ethylene Plant Helper: FRANKIE Laterality: Bilateral Indications: bilateral carotid bruits Risk Factors Hypertension: Doppler Spectral Velocity Analysis ECA (R) 55.20/18.60 cm/s ECA (L) 54.00/10.20 cm/s dICA (R) 61.00/7.10 cm/s dICA (L) 50.80/8.60 cm/s Nadine (R) 59.10/9.00 cm/s Nadine (L) 55.10/8.60 cm/s pICA (R) 45.60/10.90 cm/s pICA (L) 64.90/10.30 cm/s dCCA (R) 41.70/12.20 cm/s dCCA (L) 49.40/14.80 cm/s pCCA (R) 67.40/15.40 cm/s pCCA (L) 89.90/18.00 cm/s Vert (R) 41.10/11.60 cm/s Vert (L) 35.30/15.00 cm/s Findings Duplex evaluation demonstrates stenosis of the right proximal internal carotid artery <20%. Duplex evaluation demonstrates stenosis of the left proximal internal carotid artery <20%. Duplex evaluation demonstrates antegrade flow of the bilateral Vertebral Arteries. Electronically signed by : Toni Braden MD 12/08/2019 18:34:21
--- NOTE | 2019-12-08 09:00 | HMH.ITSHM ---
Current Home Medications as stated by this patient Damion Guerrier or retention representative. []TRAZODONE NITRO MECLIZINE ATORVASTATIN ALBUTEROL PANTOPRAZOLE BYSTOLIC FLUOXETINE AMLODIPINE
== END ==
PROVIDERS: PCP Nurse Practitioner Family; Visit Provider Internal Medicine Cardiovascular Disease
DX: R09.89 Other specified symptoms and signs involving the circulatory and respiratory systems (principal); E78.5 Hyperlipidemia, unspecified; F17.200 Nicotine dependence, unspecified, uncomplicated; I10 Essential (primary) hypertension; R06.00 Dyspnea, unspecified; R07.89 Other chest pain; I73.9 Peripheral vascular disease, unspecified; I25.708 Atherosclerosis of coronary artery bypass graft(s), unspecified, with other forms of angina pectoris; J44.9 Chronic obstructive pulmonary disease, unspecified; Z95.1 Presence of aortocoronary bypass graft
CPT/HCPCS: 76705; 78452; 93017; 93880; 93923; A9502; J2785

== ENCOUNTER → 2020-01-13 09:00 | Outpatient (CLI) | payer MEDICARE, MEDICAID, SELFPAY ==
--- NOTE | 2020-01-13 09:11 | XR_ITS ---
PROCEDURE: XR HIP RT 2-3V W/PELVIS CLINICAL INDICATION: right hip pain COMPARISON: CR XR HIP RT 2-3V W/PELVIS from 06/18/2019 FINDINGS: There has been interval progression of the avascular necrosis of the right femoral head. There is a concave area of lucency in the right femoral head with some minimal cortical collapse. Subchondral sclerosis is present. There are mild osteoarthritic changes of the right hip. There are mild osteoarthritic changes of the left hip IMPRESSION: Progression of avascular necrosis of the right femoral head now with some cortical collapse Dictated by: Toni Braden MD 01/13/2020 17:27 Toni Braden MD in [place] 01/13/2020 17:27
== END ==
PROVIDERS: PCP Nurse Practitioner Family; Visit Provider Orthopaedic Surgery
DX: M25.551 Pain in right hip (principal)
CPT/HCPCS: 73502

== ENCOUNTER → 2020-01-27 15:32 | Outpatient (CLI) | payer MEDICARE, MEDICAID, SELFPAY ==
[2020-01-28 12:09] LABS: Basophils # 0.1 K/mm3 (0-0.2); Eosinophils # 0.2 K/mm3 (0.0-0.4); Eosinophils % 2.2 % (0.1-12.0); Hematocrit 47.4 % (42.0-52.0); Hemoglobin 14.8 g/dL (14.1-18.0); Lymphocytes # 2.2 K/mm3 (0.7-4.5); Lymphocytes % 27.3 % (10-50); Mean Corpuscular HGB Conc 31.1 g/dL (31.8-35.4); Mean Corpuscular Hemoglobin 29.3 pg (27.0-31.2); Mean Platelet Volume 9.7 fl (7.4-10.4); Monocytes # 0.5 K/mm3 (0.1-1.0); Monocytes % 5.7 % (1.7-9.3); Neutrophils % 63.8 % (37.0-80.0); Platelet Count 332 K/mm3 (142-424); Red Blood Count 5.05 M/mm3 (4.60-6.20); Red Cell Distribution Width 14.1 % (11.5-17.5); White Blood Count 7.9 K/mm3 (4.8-10.8)
[2020-01-28 12:15] LABS: Alanine Aminotransferase 14 U/L (12-78); Albumin Level 4.1 g/dl (3.5-5.0); Albumin/Globulin Ratio 1.5 (1.1-1.8); Alkaline Phosphatase 97 U/L (38-126); Anion Gap 11.7 mEq/L (5-15); Aspartate Amino Transferase 25 U/L (17-59); Bilirubin,Total 0.6 mg/dl (0.2-1.3); Blood Urea Nitrogen 14 mg/dl (9-20); Calcium 9.1 mg/dl (8.4-10.2); Carbon Dioxide 27 mmol/L (22.0-30.0); Chloride 102 mmol/L (98-107); Estimated Glomerular Filt Rate 87 ml/min (>60); GFR (African American) 105 ML/MIN (>60); Globulin 2.8 g/dL (1.3-3.2); Glucose 118 mg/dl (74-100); Potassium 3.7 mmoL/L (3.5-5.1); Sodium 137 mmol/L (136-145); Total Protein,Serum 6.9 g/dl (6.3-8.2)
== END ==
PROVIDERS: Visit Provider Orthopaedic Surgery
DX: Z01.818 Encounter for other preprocedural examination (principal); M16.11 Unilateral primary osteoarthritis, right hip
CPT/HCPCS: 80053; 85025

== ENCOUNTER → 2020-01-31 13:49 | Outpatient (CLI) | payer MEDICARE, MEDICAID, SELFPAY ==
[2020-01-31 14:09] LABS: Microscopic, Urine URINE MICROSCOPIC (MICROSCOPIC)
[2020-01-31 14:44] LABS: Appearance,Urine CLEAR (Clear); Bilirubin,Urine Negative (Negative); Blood, Urine Negative (Negative); Color,Urine YELLOW (Yellow); Glucose,Urine (UA) Negative (Negative); Ketones,Urine Negative (Negative); Leukocyte Esterase,Urine Negative (Negative); Nitrate,Urine Negative (Negative); Protein,Urine Negative (Negative); Specific Gravity, Urine 1.015 (1.005-1.030); Urobilinogen,Urine 0.2 EU/dl (0.2)
[2020-01-31 15:04] LABS: Coronavirus 19 IgG Antibody Negative (Negative); Coronavirus 19 IgM Antibody Negative (Negative)
[2020-01-31 15:05] LABS: Squamous Epithelial Cell,Urine Occasional #/hpf (0-5)
== END ==
PROVIDERS: PCP Nurse Practitioner Family; Visit Provider Orthopaedic Surgery
DX: Z01.818 Encounter for other preprocedural examination (principal); M16.11 Unilateral primary osteoarthritis, right hip
CPT/HCPCS: 36415; 81001; 86328; 86850

== ENCOUNTER 2020-02-02 12:17 | Inpatient (IN) | payer MEDICARE, MEDICAID, SELFPAY ==
[2020-02-02] VITALS (20 sets, daily range): BP systolic 126–147; BP diastolic 56–94; PULSE 56–78; RESP 12–20; TEMP 36.3–43; O2SAT 94–100; BMI 22.4; BMI 23.6
--- NOTE | 2020-02-02 06:30 | XR_ITS ---
PROCEDURE: XR CHEST PORTABLE CLINICAL HISTORY: pre surgery hypertension, smoking history COMPARISON: CR CXR1 CHEST-PORTABLE from 05/29/2015 CR CXR2V XR chest 2V from 05/09/2018 FINDINGS: The cardiomediastinal silhouette and pulmonary vascularity are within normal limits. There are sternal wire sutures. The lungs are clear without infiltrates, suspicious nodules, or pleural effusions. There is a small calcified granuloma left lower lobe ,there is mild degenerate change right shoulder No acute bony abnormalities. IMPRESSION: No acute findings. Dictated by: Dr. Mukesh Hurd MD 02/02/2020 07:34 Dr. Mukesh Hurd MD in [place] 02/02/2020 07:34
--- NOTE | 2020-02-02 10:30 | HMH.ANESCL ---
[facility] Anesthesia Checklist - Patient Identification Patient Identification: Arm Band, Verbal (Name & ) - Structural Data Planned Operative Procedure/s: Right BIN lateral position Consent for Planned Operative Procedure(s) Verified: Yes Verified Documents: Surgical Consent, History and Physical, Cardiac Clearance - NPO Status Verified Time NPO: 00:00 - Chart Verification Results Verified: CBC, BMP - Additional verifications Anesthesia Reactions: No Hx Blood Transfusions: No Blood Transfusion Reaction: No - Airway Assessment C-Spine Mobility Assessed: Yes (MP 2, TMD 3) TMJ Mobility Assessed: Yes Dentition: Edentulous - Neurological Assessment Level of Consciousness: Awake, Alert, Appropriate, Follows Commands Hx Seizures: No Numbness or tingling in extremities: Yes (Bilateral feet) - Anesthesia Plan Anesthesia Risk discussed: Yes ASA Class: III Anesthesia Type: Spinal [facility] History I have reviewed the patient's past medical history: Yes Medical History: Reports:: Chronic Obstructive Pulmonary Disease (COPD), Coronary Artery Disease, Depression, Gastroesophageal Reflux Disease(GERD), Hyperlipidemia, Hypertension, Myocardial Infarction Denies:: Cancer, Diabetes Mellitus Type 1, Diabetes Mellitus Type 2, Internal Pacemaker, MRSA, Seizures *Have you ever received a pneumonia vaccine?: Yes *Have you received a flu vaccine this season?: Yes Other Medical History: Reports: Arthritis, Other. Denies: Blood Transfusion Reaction Anesthesia experience/problems:: None Other Surgeries: Yes: CABG, Cardiac Catheterization, Cardiac Surgery, Hernia Repair, Other. No: Pacemaker Amputation: No Fractures: No - *Social History Last grade of school completed: 9th or 10th Smoking Status: Current every day smoker Tobacco Type: cigarettes # Packs/Day (cigarettes): 1 #Yrs smoked (if former smoker): 40 Alcohol Intake: former Alcohol Intake Frequency:: 3 or more drinks per day Substance Use Type: denies use *Occupational Status:: disabled Housing: house Household Members: significant other, family *Travel in the last 8 weeks: None - Psychiatric History Pschychiatric History:: Reports:: Depression Family Hx:: Cancer, Coronary Artery Disease, Diabetes, Alcoholism
--- NOTE | 2020-02-02 11:26 | HMH.ANESI ---
[facility] Anesthesia Record Part I Intake, IV Amount: 1,700 Estimated blood loss (mL): 150 Urine output (mL): 200 Blood Pressure: 146/72 SaO2: 97 Pulse Rate: 78 Respiratory Rate: 16 Temperature: 97.4 F Patient is:: Drowsy, Stable Stable to PACU at:: 11:20
--- NOTE | 2020-02-02 11:30 | XR_ITS ---
PROCEDURE: XR HIP RT 2-3V W/PELVIS CLINICAL INDICATION: s/p total right hip arthroplasty COMPARISON: CR XR HIP RT 2-3V W/PELVIS from 01/13/2020 FINDINGS: The total hip arthroplasty normal period the prosthetic acetabulum is fixated to the right iliac bone buys single threaded screw. The medullary stem is well positioned within the proximal femur. Mild postsurgical changes of the soft tissues is noted IMPRESSION: Satisfactory postop appearance right total hip arthroplasty Dictated by: Dr. Mukesh Hurd MD 02/02/2020 12:08 Dr. Mukesh Hurd MD in [place] 02/02/2020 12:08
--- NOTE | 2020-02-02 12:04 | HMH.OPNOTE ---
Date of procedure: 02/02/20 Pre-op Diagnosis:: 1. Avascular necrosis of femoral head, right hip 2. Osteoarthritis, right hip Post-op Diagnosis:: Same Procedure performed:: Uncemented total hip arthroplasty, right hip Surgeon:: Allen Esqueda MD [employer] Consultant(s):: Joana Trotter MARKETING MANAGER HEALTH COMMUNICATIONS:: Marcus Good Anesthesia: spinal Estimated blood loss (mL): 150 Clinical Note:: Patient is a 59-year-old male who has avascular necrosis of the femoral head with secondary osteoarthritis of his right hip unresponsive to conservative management. The AVN/arthritis is causing severe pain and significant disability and has not responded well to conservative management. He cannot even take a few steps without pain and he is using a cane to help with mobilization. The pain also is affecting his lifestyle, activities of daily living and significantly impacting his sleep. He is also at a high risk of falls from his arthritis. Therefore a total hip arthroplasty is indicated to relieve pain and the help prevent the disability and risk of falls. Please refer to my office note for full details. Operative findings:: Intraoperatively, moderate osteoarthritis of the hip joint was noted. The femoral head was somewhat misshapen and osteophytes were noted on both the acetabulum and the femoral head. The capsule was thickened and range of motion was decreased. The bone quality is good. Operative note:: On the day of the procedure the patient and family were met in the preoperative area and the patient was positively identified. A physical examination was performed and documented. The operative site was appropriately marked and initialed by me. I again reviewed the diagnosis, natural history and management options in detail including both nonsurgical and surgical. We discussed the proposed surgery, risks and benefits and alternatives in detail. The complications discussed include but are not limited to infection, injury to nerves, blood vessels and tendons, DVT and PE, fracture, limb length inequality, dislocation, implant malpositioning, implant failure, squeaking, loosening, acetabular wear, osteolysis, periprosthetic femur fracture, heterotopic ossification, abductor weakness and limp, incomplete relief of pain, likely need for further surgery in future including revision, anesthetic complications including heart attack, stroke and even . We also discussed the postoperative recovery and rehabilitation. He verbalized a good understanding and wished to proceed with the proposed surgery. The consent form was reviewed and signed. The patient was brought to the operating room and a spinal anesthesia was administered by the timber hewer. The patient was then positioned in the LEFT lateral decubitus position with the RIGHT hip facing up. We used Wixon hip positioner for this. All the bony prominences were appropriately padded. The RIGHT hip was then prepped with isopropyl alcohol followed by chlorhexidine and draped in the usual sterile fashion. The entire operative team wore isolation suits and the Operating Room traffic was controlled. The skin incision was marked for a posterior approach to the hip joint. The perineum and the operative site were sealed off with Ioban drape. A preprocedure timeout was performed as per hospital protocol identifying the patient, correct surgery and correct site. Administration of prophylactic IV antibiotics (IV Ancef and vancomycin) was confirmed with the timber hewer. We have also administered IV tranexamic acid pre and postop, to reduce the perioperative bleeding. A posterior approach was used to the RIGHT hip joint. The skin incision was made centering over the posterior part of the greater trochanter extending posteriorly in a curved fashion across the buttock. An electrocautery was used for hemostasis. The dissection was carried through the subcutaneous tissue down to the fascia david. The fascia david and gluteus fascia were split in line with the incision and a Charnley ret
--- NOTE | 2020-02-02 12:30 | HMH.HP ---
*Admission Date: 02/02/20 *Chief complaint: Right hip pain *History of present illness: Patient is a 59-year-old male admitted to the inpatient service today, 02/02/2020, after an uneventful right total hip arthroplasty. 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 His right hip pain has been gradually getting worse and he is now having difficulty walking. He localizes his pain to the anterior aspect of the right hip with radiation into the upper thigh. He states that the pain is severe most of the time and at worst he rates his pain a 10 out of 10. He states that the pain has increasingly begun to impact his mobility and interfere with his activities of daily living. He also reports night pain and frequent sleep disturbances. He reports that standing for long periods of time, walking, and twisting/turning aggravate his pain. His pain has failed to respond satisfactorily to conservative measures including NSAIDs, rest, and activity modification. He has history of excessive intake of alcohol in the past. He is also a chronic smoker. He has history of COPD and thinks he may have had steroids occasionally for management of exacerbations of his COPD. He does not work due to being disabled. His medical history includes hypertension, hyperlipidemia, coronary artery disease, COPD, depression and arthritis. He is not a known diabetic. He has history of coronary artery bypass surgery. A total hip arthroplasty is indicated to reduce the risks of falls, as well as improve his pain, mobility, and quality of life. The surgical and nonsurgical alternatives were discussed in detail with the patient as well as the risks and benefits of surgery. Please refer to my office note for full details. This afternoon postoperatively, the patient is lying comfortably in bed. He denies any nausea or vomiting and states that he is eating/drinking well. He denies any other symptoms/concerns at this time. [facility] History I have reviewed the patient's past medical history: Yes Medical History: Reports:: Chronic Obstructive Pulmonary Disease (COPD), Coronary Artery Disease, Depression, Gastroesophageal Reflux Disease(GERD), Hyperlipidemia, Hypertension, Myocardial Infarction Denies:: Cancer, Diabetes Mellitus Type 1, Diabetes Mellitus Type 2, Internal Pacemaker, MRSA, Seizures *Have you ever received a pneumonia vaccine?: Yes *Have you received a flu vaccine this season?: Yes Other Medical History: Reports: Arthritis, Other. Denies: Blood Transfusion Reaction Anesthesia experience/problems:: None Other Surgeries: Yes: CABG, Cardiac Catheterization, Cardiac Surgery, Hernia Repair, Other. No: Pacemaker Amputation: No Fractures: No - *Social History Last grade of school completed: 9th or 10th Smoking Status: Current every day smoker Tobacco Type: cigarettes # Packs/Day (cigarettes): 1 #Yrs smoked (if former smoker): 40 Alcohol Intake: former Alcohol Intake Frequency:: 3 or more drinks per day Substance Use Type: denies use *Occupational Status:: disabled Housing: house Household Members: significant other, family *Travel in the last 8 weeks: None - Psychiatric History Pschychiatric History:: Reports:: Depression Family Hx:: Cancer, Coronary Artery Disease, Diabetes, Alcoholism Review of Systems - Review of Systems Review of systems:: pertinent systems reviewed and negative unless documented below - Constitutional Denies chills, Denies fever(s) - Eyes Denies change in vision - ENT Denies abnormal hearing, Denies change in voice, Denies dental pain - *Cardiovascular Denies chest pain, Denies shortness of breath - *Respiratory Denies chest congestion, Denies shortness of breath - *Gastrointestinal Denies abdominal pain, Denies change in bowel habits - *Genitourinary Denies difficulty urinating - *Musculoskeletal Reports abnormal walking, Reports joint pain, Reports limited joint movem
[2020-02-02 12:38] LABS: Microscopic,Cath URINE MICROSCOPIC (MICROSCOPIC)
[2020-02-02 12:43] LABS: Appearance,Urine/Cath CLEAR (Clear); Bilirubin,Cath Negative (Negative); Blood, Urine/Cath Negative (Negative); Color,Urine/Cath YELLOW (Yellow); Glucose,Urine/Cath (UA) Negative (Negative); Ketones,Urine/Cath Negative (Negative); Leukocyte Esterase,Cath Negative (Negative); Nitrate,Cath Negative (Negative); Protein,Urine/Cath Negative (Negative); Specific Gravity, Urine/Cath 1.025 (1.005-1.030); Urobilinogen,Cath 0.2 EU/dl (0.2)
[2020-02-02 12:53] LABS: RBC,Urine/Cath Occasional # /hpf (0-3); Squamous Epithelial Ur./Cath Occasional #/hpf (0-5)
--- NOTE | 2020-02-02 13:34 | P.CONPHA_ITS ---
[facility] Pharmacy VTE Monitoring - Patient Demographics Admission date: 02/02/20 Report Date: 02/02/20 Time: 13:35 Allergies/Adverse Reactions: Patient Allergies ibuprofen [IBUPROFEN] Allergy (Unknown, Verified 02/02/20 06:28) Unknown allergy reaction Penicillins [PENICILLINS] Allergy (Unknown, Verified 02/02/20 06:28) Unknown allergy reaction Height: 1.78 m Weight: 74.843 kg Patient Problems: Current Active Problems Avascular necrosis of bone of right hip (Acute) Osteoarthritis of right hip (Acute) S/P total hip arthroplasty (Acute) - VTE Risk Was VTE Risk Assessment Performed: No VTE Score: 5 VTE Risk Level: Low Risk - Prophylaxis VTE Prophylaxis Ordered?: Yes Types of VTE Prophylaxis: IPCS Thigh High, Pharmacological Location of Applied Device: Bilateral Lower Extremeties Pharmacologic Type: Other (XARELTO)
--- NOTE | 2020-02-02 14:52 | HMH.OTEV ---
OT Inpatient Evaluation Rehab OT IP Evaluation Start: 02/02/20 12:21 Freq: ONCE Status: Complete Protocol: Document 02/02/20 13:56 DOMINIQUEKIM (Rec: 02/02/20 14:52 PATRICIA [id number]) Rehab OT IP Assessment Subjective History Patient is a 59-year-old male who has avascular necrosis of the femoral head with secondary osteoarthritis of his right hip unresponsive to conservative management. The AVN/arthritis is causing severe pain and significant disability and has not responded well to conservative management. He cannot even take a few steps without pain and he is using a cane to help with mobilization. The pain also is affecting his lifestyle, activities of daily living and significantly impacting his sleep. He is also at a high risk of falls from his arthritis. Therefore a total hip arthroplasty is indicated to relieve pain and the help prevent the disability and risk of falls. Patient underwent uncemented total hip arthroplasty R hip on 02/02/20. Subjective Yeah I can try to sit up. Patient instructed to complete supine->sit @ EOB with usage of proper hand/foot placement for bed mobility tasks. Patient completed task requiring Min A. Patient sat @ EOB ~5 mins with no support and no LOB. Patient verbalize numbness in B LE during evaluation and patient did not stand 2* safety. Patient completed EOB->supine requiring Min A. Left Patient laying in bed with needs met at end of session. Objective Patient Orientation Person,Place,Name,Age,Birthday ,Year,Situation Upper Extremity Gross ROM WFL Bed Mobility bed mobilit
--- NOTE | 2020-02-02 15:11 | SUR.PHASEI ---
Patient woke c/o numbness in BLE, although he was able to move BLE. Patient had abduction pillow fastened to legs, which was also upsetting to him. Multiple times attempts were made to assure patient he was safe, surgery was done, the numbness he was feeling was good r/t not having pain, and that he would regain feeling in a couple of hours. Patient was having difficulty opening his eyes and keeping them opened. At one time patient attempted to get out of bed; pushing himself up with his arms and swinging his legs to the left side of his bed. Patient calmed before leaving PACU with use of therapeutic conversation.
--- NOTE | 2020-02-02 16:48 | SW/DCPLANNER ---
Addendum entered by Desiree Mead 02/04/20 14:24: Farhana with [facility] stated that patient information has been reviewed and services will begin over the weekend for this patient. [facility]. Addendum entered by Desiree Mead 02/04/20 11:27: Patient will need home health services at time of discharge. Patient is agreeable to home health services and does not have a preference as to which agency. [facility] can not begin services till Sunday. Patient information and order has been faxed to [facility] for: senior living, physical therapy and occupational therapy. Patient may discharge home later today or tomorrow. [facility] once [facility] information is reviewed. Addendum entered by Desiree Mead 02/03/20 11:08: Roseline with [facility] stated that patient information has been reviewed: walker will be delivered to [facility] and bedside commode will be delivered to patients home. Patient will discharge home tomorrow pending no setbacks. Addendum entered by Desiree Mead 02/03/20 10:10: Patient information and order has been faxed to [facility] per patient request for a rolling walker and bedside commode. I will follow up with [facility] once patient information is reviewed. Discharge date is unknown at this time. Original Note: I spoke with patient this evening regarding discharge plans. Patient stated that he resides at home with family. Patient stated that his plan is to return home once medically stable for discharge. Patient stated that he does not have a walker at home at this time. I will follow up with patient tomorrow to further discuss discharge plans: home health vs outpatient PT and DME needed at home.
[2020-02-02 17:45] LABS: Basophils # 0.1 K/mm3 (0-0.2); Basophils % 0.4 % (0.1-2.0); Eosinophils # 0.2 K/mm3 (0.0-0.4); Hematocrit 40.5 % (42.0-52.0); Hemoglobin 13.1 g/dL (14.1-18.0); Lymphocytes # 2.1 K/mm3 (0.7-4.5); Lymphocytes % 16.7 % (10-50); Mean Corpuscular HGB Conc 32.4 g/dL (31.8-35.4); Mean Corpuscular Hemoglobin 29.2 pg (27.0-31.2); Mean Corpuscular Volume 90.2 fl (80-94); Monocytes # 0.7 K/mm3 (0.1-1.0); Monocytes % 5.3 % (1.7-9.3); Neutrophils # 9.4 K/mm3 (1.8-7.8); Neutrophils % 75.7 % (37.0-80.0); Platelet Count 265 K/mm3 (142-424); Red Blood Count 4.49 M/mm3 (4.60-6.20); Red Cell Distribution Width 13.9 % (11.5-17.5); White Blood Count 12.5 K/mm3 (4.8-10.8)
[2020-02-02 17:51] LABS: Chloride 104 mmol/L (98-107); Potassium 4.4 mmoL/L (3.5-5.1); Sodium 139 mmol/L (136-145)
[2020-02-02 17:54] LABS: Alanine Aminotransferase 14 U/L (12-78); Albumin Level 3.2 g/dl (3.5-5.0); Albumin/Globulin Ratio 1.3 (1.1-1.8); Alkaline Phosphatase 85 U/L (38-126); Anion Gap 7.4 mEq/L (5-15); Aspartate Amino Transferase 29 U/L (17-59); Bilirubin,Total 0.3 mg/dl (0.2-1.3); Blood Urea Nitrogen 13 mg/dl (9-20); Calcium 8.4 mg/dl (8.4-10.2); Carbon Dioxide 32 mmol/L (22.0-30.0); Creatinine Clearance Estimated 85 mL/min (50-200); Estimated Glomerular Filt Rate 77 ml/min (>60); GFR (African American) 93 ML/MIN (>60); Globulin 2.5 g/dL (1.3-3.2); Glucose 118 mg/dl (74-100); Total Protein,Serum 5.7 g/dl (6.3-8.2)
--- NOTE | 2020-02-02 19:49 | PC.NURSE ---
A&OX4. PT HAS TOLERATED RA WELL THROUGHOUT SHIFT. RESPIRATIONS REGULAR AND UNLABORED. LUNG SOUNDS BILATERALLY CLEAR. NO COUGH NOTED. ACTIVE BOWEL SOUNDS HEARD IN ALL 4 QUADRANTS. SOFT AND NONTENDER ABDOMEN. ABDUCTOR PILLOW IN PLACE. SCUD NOTED TO L LEG. PT EDUCATED ON HOW TO USE INCENTIVE SPIROMETER AND ENCOURAGED TO USE 10 TIMES EVERY HOUR WHILE AWAKE. PT RECEIVED SCHEDULED PAIN MEDS PER APR AND HASN'T NEEDED ANY ADDITIONAL PRN PAIN MEDS THUS FAR. [employer] SALES EQUAL. +2 PULSES NOTED THROUGHOUT. YOUSSEF CATHETER IN PLACE W CLEAR YELLOW URINE NOTED. NO KINKS NOTED. PT IS CURRENTLY RESTING IN BED W CALL LIGHT WITHIN REACH. BED IN LOWEST POSITION. VSS. WILL CONTINUE TO MONITOR.
[2020-02-03] VITALS (7 sets, daily range): BP systolic 134–156; BP diastolic 76–93; PULSE 62–95; RESP 16–18; TEMP 36.4–37.4; O2SAT 92–96; BMI 24.0
[2020-02-03 06:59] LABS: Chloride 104 mmol/L (98-107)
[2020-02-03 07:00] LABS: Potassium 4.1 mmoL/L (3.5-5.1); Sodium 135 mmol/L (136-145)
--- NOTE | 2020-02-03 07:00 | PC.NURSE ---
Pt has rested well this shift. C/O some discomfort this shift to (R) hip. DSG intact. Pt refused abductor pillow. Education given. Pt also declined ice packs. Pt did not want to take carvedilol as ordered last night. Pt stated that he would speak with doctor about medication. VSS Remains on RA. No other concerns. Will continue to monitor.
[2020-02-03 07:02] LABS: Chol/HDL Ratio 3.6 (1-3.5); Cholesterol 96 mg/dl (140-200); HDL Cholesterol 27 mg/dl (40-60); Triglycerides 114 mg/dl (30-150); VLDL Cholesterol 23 mg/dL (0-40)
[2020-02-03 07:03] LABS: Anion Gap 4.1 mEq/L (5-15); Blood Urea Nitrogen 14 mg/dl (9-20); Calcium 8.3 mg/dl (8.4-10.2); Carbon Dioxide 31 mmol/L (22.0-30.0); Creatinine Clearance Estimated 87 mL/min (50-200); Estimated Glomerular Filt Rate 77 ml/min (>60); GFR (African American) 93 ML/MIN (>60); Glucose 102 mg/dl (74-100)
[2020-02-03 07:10] LABS: Basophils # 0.1 K/mm3 (0-0.2); Basophils % 0.5 % (0.1-2.0); Eosinophils # 0.1 K/mm3 (0.0-0.4); Eosinophils % 1.4 % (0.1-12.0); Hematocrit 39.8 % (42.0-52.0); Hemoglobin 13.3 g/dL (14.1-18.0); Lymphocytes # 1.5 K/mm3 (0.7-4.5); Lymphocytes % 15.4 % (10-50); Mean Corpuscular HGB Conc 33.4 g/dL (31.8-35.4); Mean Corpuscular Hemoglobin 29.7 pg (27.0-31.2); Mean Corpuscular Volume 88.9 fl (80-94); Mean Platelet Volume 7.3 fl (7.4-10.4); Monocytes # 0.7 K/mm3 (0.1-1.0); Monocytes % 6.8 % (1.7-9.3); Neutrophils # 7.3 K/mm3 (1.8-7.8); Neutrophils % 75.9 % (37.0-80.0); Platelet Count 252 K/mm3 (142-424); Red Blood Count 4.48 M/mm3 (4.60-6.20); White Blood Count 9.6 K/mm3 (4.8-10.8)
[2020-02-03 07:13] LABS: Direct LDL Cholesterol 43.89 mg/dL (100-129)
--- NOTE | 2020-02-03 07:42 | HMH.PHAINT ---
MEDICATION RECONCILIATION COMPLETED ON PATIENT USING EXTERNAL FILL HISTORY FROM PHARMACY AND LIST FROM MD OFFICE. -BOOKER CHOWDARYD
--- NOTE | 2020-02-03 08:09 | P.PN_ITS ---
[facility] Anesthesia Record Part II Discharge Time: 12:04 Destination: Medical Surgical Department PACU nurse assessment reviewed?: Yes Patient Condition:: Good Anesthesia Complications:: None Swallowing reflex intact?: Yes Cyanosis?: No Blood Pressure: 134/76 Pulse Rate: 62 Temperature: 97.5 F Mental Status: Alert & Oriented Pain level:: 0 Nausea and/or vomitting:: None Intake, IV Amount: 0
--- NOTE | 2020-02-03 09:04 | HMH.CONS ---
*Admission Date: 02/02/20 *Reason for consult:: Medical Management *History of present illness: 59-year-old male patient resting in bed quietly he has refused his abductor pillow and polar pack to right hip. Purpose of age explained to patient and importance of the use, he verbalizes understanding and is still refusing abductor pillow. He reports his pain is at a tolerable level. Elastoplast dressing clean dry and intact to right hip Queen is in place draining clear yellow urine. Discussed tobacco cessation, patient reports we will discuss at PCP appointment. He underwent an Uncemented total hip arthroplasty, right hip 02/02/2020 due to Avascular necrosis of femoral head, right hip and Osteoarthritis, right hip. He is very familiar to us in Primary Care and has a past medical history of CAD, COPD, HLD, hypertension, old NM and a past CABG [facility] History Medical History: Reports:: Chronic Obstructive Pulmonary Disease (COPD), Coronary Artery Disease, Depression, Gastroesophageal Reflux Disease(GERD), Hyperlipidemia, Hypertension, Myocardial Infarction Denies:: Cancer, Diabetes Mellitus Type 1, Diabetes Mellitus Type 2, Internal Pacemaker, MRSA, Seizures *Have you ever received a pneumonia vaccine?: No *Have you received a flu vaccine this season?: Yes Other Medical History: Reports: Arthritis, Other. Denies: Blood Transfusion Reaction Anesthesia experience/problems:: None Other Surgeries: Yes: CABG, Cardiac Catheterization, Cardiac Surgery, Colonoscopy, Hernia Repair, Other. No: Pacemaker Amputation: No Fractures: No - *Social History Last grade of school completed: 9th or 10th Smoking Status: Current every day smoker Tobacco Type: cigarettes # Packs/Day (cigarettes): 1 #Yrs smoked (if former smoker): 40 Alcohol Intake: never Alcohol Intake Frequency:: 3 or more drinks per day Substance Use Type: denies use *Occupational Status:: disabled Housing: house Household Members: significant other, children *Travel in the last 8 weeks: None - Psychiatric History Pschychiatric History:: Reports:: Depression Family Hx:: Cancer, Heart Attack Review of Systems - Review of Systems Review of systems:: pertinent systems reviewed and negative unless documented below - Constitutional Denies anorexia, Denies body ache(s) - Eyes Denies change in vision, Denies double vision - ENT Denies difficulty swallowing, Denies dizziness - *Cardiovascular Reports shortness of breath, Denies chest pain, Denies rapid, pounding, or irregular heartbeat - *Respiratory Reports cough, Reports shortness of breath, Denies change in phlegm color, Denies chest congestion - *Gastrointestinal Denies abdominal pain, Denies change in bowel habits - *Musculoskeletal Reports abnormal walking, Reports joint pain, Reports back pain, Reports limited joint movement, Denies numbness - Integumentary/Breasts Denies bleeding lesions, Denies yellowing of the skin - *Neurologic Reports abnormal walking, Denies abnormal hearing, Denies confusion - Psychiatric Denies abnormal sleep pattern, Denies anxiety - Endocrine Denies cold intolerance, Denies rapid, pounding, or irregular heartbeat - Hematologic/Lymphatic Denies easy bleeding, Denies easy bruising - Allergic/Immunologic Denies GI upset with certain foods, Denies tongue swelling Meds Home Medications Medication Instructions Recorded Confirmed Type Fluoxetine HCl 20 mg PO DAILY 12/01/19 02/02/20 History atorvastatin 80 mg tablet 80 mg PO HS #90 tab 12/04/19 02/02/20 Rx meclizine 25 mg tablet 25 mg PO DAILY PRN tab 12/19/19 02/02/20 History nitroglycerin 0.4 mg sublingual 0.4 mg SUBLINGUAL Q5MINP PRN tab 12/19/19 02/03/20 History tablet trazodone 150 mg tablet 150 mg PO HS tab 12/19/19 02/02/20 History tramadol 50 mg tablet 50 mg PO TID PRN #21 tab 01/27/20 02/02/20 Rx Mupirocin [Centany] 1 applic TP BID 02/02/20 02/03/20 History Nebivolol HCl [Bystolic] 10 mg PO DAILY 02/02/20
--- NOTE | 2020-02-03 09:52 | PC.NURSE ---
Pt will need a rollling walker rather than a cane due to gait and mobility issues. Pt will also need a BSC due to distance to restroom in home.
--- NOTE | 2020-02-03 09:56 | HMH.PTEV ---
Physical Therapy Evaluation Rehab PT IP Evaluation Start: 02/02/20 12:21 Freq: ONCE Status: Active Protocol: Document 02/03/20 09:38 PHORNE (Rec: 02/03/20 09:56 PHORNE [id number]) Subjective/History History History 59 yowm adm to [facility] for R BIN due to AVN. PMH of COPD, CABG, NC, CAD. He reports he lives with significant other and has no steps to enter the home, he was indepedent with all activity prior to adm. Subjective Subjective Pt reports R LE pain as expected post-op. Rehab PT IP Eval Objective Appearance Patient Behavior Appropriate Patient Orientation Person,Place,Time Difficulty following instructions none Speech Pattern Clear Ambulation Patient Able to Ambulate Yes Ambulation Observation IP General Gait Pattern Observation Antalgic Gait,Wide Based Gait, Decrease Stride Lngth (R), Decrease Stride Lngth (L) Ambulation Distance (feet) 15 Ambulation Assistive Device Rolling Walker Ambulation Ability Contact Guard/Hand Hold Balance Ability to Arise Able, uses arms to help Sitting Balance Steady, safe Standing Balance Steady, wide stance Dynamic Sitting Balance Ability Good Dynamic Standing Balance Ability Good Transfers Bed Transfer Ability Contact Guard/Hand Hold Chair Transfer Ability Contact Guard/Hand Hold Sit to Stand Bed Transfer Ability Contact Guard/Hand Hold Sit to Stand Chair Transfer Ability Contact Guard/Hand Hold ROM All Extremities PT ROM Status WFL MMT All Extremities PT MMT WFL Abnormal MMT Grade except R LE grossly 3/5 Rehab PT IP prob,goals,plan Problems Date of Evaluation: 02/03/20 PT IP Problems Bed Mobility,Transfers,Gait Rehab Potential Rehab Potential Good Equipment Needs Assistive Devices Rolling / Wheeled Walker Plan PT Intervention Plan Bed Mobility,Transfers,Gait, Therapeutic Exercise PT Plan Frequency BID Duration LOS Discharge Goals Bed Transfer Ability Supervision/Stand by Sit to Stand Chair Transfer Ability Supervision/Stand by Ambulation Assistive Device Rolling Walker Ambulation Distance (feet) 30 Discharge Plan PT Discharge Plan Pt is appropriate to return home once medically stable. G -code Required No Eval Complexity Eval Charge Codes
--- NOTE | 2020-02-03 14:14 | HMH.ORTHPN ---
Subjective Date: 02/03/20 Time: 12:45 Principal diagnosis: S/p total hip arthroplasty, right Interval history: Patient is status post right total hip arthroplasty post op day #1. Patient is sitting out in the chair; says he is doing well and reports no problems. Patient has minimal pain and says it's well-controlled with medication. He reports some nausea but no vomiting. No history of any cough, chest pain, shortness of breath or palpitations. Patient says he is eating and drinking well. No history of any distal tingling or numbness. PN: Obj Ex Vital signs: Temp Pulse Resp BP Pulse Ox 97.5 F L 62 18 134/76 93 L 02/03/20 08:10 02/03/20 08:10 02/03/20 07:50 02/03/20 08:10 02/03/20 07:50 Narrative: Laboratory Results - last 24 hr 02/02/20 17:34: WBC 12.5 H, RBC 4.49 L, Hgb 13.1 L, Hct 40.5 L, MCV 90.2, MCH 29.2, MCHC 32.4, RDW 13.9, Plt Count 265, MPV 8.0, Neut % (Auto) 75.7, Lymph % (Auto) 16.7, Republic % (Auto) 5.3, Eos % (Auto) 2.0, Baso % (Auto) 0.4, Neut # (Auto) 9.4 H, Lymph # (Auto) 2.1, Republic # (Auto) 0.7, Eos # (Auto) 0.2, Baso # (Auto) 0.1 02/02/20 17:34: Sodium 139, Potassium 4.4, Chloride 104, Carbon Dioxide 32 H, Anion Gap 7.4, BUN 13, Creatinine 1.00, Estimated Creat Clear 85, Estimated GFR 77, Est GFR ( Amer) 93, Glucose 118 H, Calcium 8.4, Total Bilirubin 0.3, AST 29, ALT 14, Alkaline Phosphatase 85, Total Protein 5.7 L, Albumin 3.2 L, Globulin 2.5, Albumin/Globulin Ratio 1.3 02/03/20 05:48: WBC 9.6, RBC 4.48 L, Hgb 13.3 L, Hct 39.8 L, MCV 88.9, MCH 29.7, MCHC 33.4, RDW 14.0, Plt Count 252, MPV 7.3 L, Neut % (Auto) 75.9, Lymph % (Auto) 15.4, Republic % (Auto) 6.8, Eos % (Auto) 1.4, Baso % (Auto) 0.5, Neut # (Auto) 7.3, Lymph # (Auto) 1.5, Republic # (Auto) 0.7, Eos # (Auto) 0.1, Baso # (Auto) 0.1 02/03/20 05:48: Sodium 135 L, Potassium 4.1, Chloride 104, Carbon Dioxide 31 H, Anion Gap 4.1 L, BUN 14, Creatinine 1.00, Estimated Creat Clear 87, Estimated GFR 77, Est GFR ( Amer) 93, Glucose 102 H, Calcium 8.3 L 02/03/20 05:48: Triglycerides 114, Cholesterol 96 L, LDL Cholesterol Direct 43.89 L, VLDL Cholesterol 23, HDL Cholesterol 27 L, Cholesterol/HDL Ratio 3.6 H Exam General appearance: alert, active, awake, no acute distress Cardiovascular: regular rate & rhythm, normal peripheral pulses Respiratory: No respiratory distress noted, speaks in full sentences ABD: soft and non tender Neuro: alert, awake, oriented x 3 Psych: Appropriate mood and affect Genitourinary: Catheter in situ. On examination of the lower extremities the limb lengths are equal. Thigh and calf are soft and nontender. On examination of the right hip the dressings are clean, dry and intact. There is no soakage of the dressings. Distal pulses are 2+. Distal sensation is intact to light touch throughout. No motor deficits noted distally. Postoperative check x-ray satisfactory with good alignment of the prosthesis and stable fixation. - Urinary Catheter Management Queen Cath placed during this visit: no Progress Note: A&P (1) Avascular necrosis of bone of right hip Status: Acute (2) Osteoarthritis of right hip Status: Acute (3) S/P total hip arthroplasty Status: Acute (4) Old myocardial infarction Status: Acute (5) COPD (chronic obstructive pulmonary disease) Status: Chronic (6) Tobacco dependence syndrome Status: Acute (7) HLD (hyperlipidemia) Status: Acute (8) HTN (hypertension) Status: Acute (9) CAD (coronary artery disease) Status: Chronic (10) Neuropathy Status: Chronic Assessment and Plan for All Diagnoses:: I have reviewed the clinical and operative findings and procedure performed progress with the patient. I have given a paper copy of the postoperative x-rays. Patient is doing well and reports no problems. Nursing staff reports that patient is reluctant to wear the abduction wedge when in bed. I have told the patient that he should always have the abduction wedge between th
--- NOTE | 2020-02-03 17:32 | PC.NURSE ---
shift note: pt has been stable this shift. Gets OOB without assistance using walker. He will not use call light as instructed by staff. He has been sitting in chair most all day so he doesn't have to use abductor pillow. He refuses polar pack/ice pack to right hip. Also refuses Coreg, reporting that it makes me pee all day . Attempted education multiple times but it doesn't help. He also refuses for right SCD to be hooked to pump. No IVF are infusing. Dr. Esqueda may discharge pt home tomorrow.
[2020-02-04 04:00] VITALS: BP 159/77; PULSE 96; RESP 19; TEMP 36.6; O2SAT 97
--- NOTE | 2020-02-04 04:23 | PC.NURSE ---
Pt is A&Ox4. Pt has slept well this shift in bed with abductor pillow in place for most of the night. At 0400 checks, staff reported pt had thrown abductor pillow off of bed and was lying in bed w/o it. This nurse educated the pt on the importance of the abductor pillow, pt still refuses at this time. Inspiratory and expiratory wheezing heard at bilat upper lobes at the beginning of shift, but upon reassessment pts lung sounds are now clear t/o. Pt continues to tolerate RA appropriately. Pt has c/o nausea this shift, pt medicated per APR. Pt has gotten up to the restroom w/ walker with standby assist appropriately. No other acute changes or complaints at this time.
[2020-02-04 05:05] VITALS: BMI 21.6
[2020-02-04 06:31] LABS: Basophils % 0.3 % (0.1-2.0); Eosinophils # 0.1 K/mm3 (0.0-0.4); Eosinophils % 1.1 % (0.1-12.0); Hematocrit 39.3 % (42.0-52.0); Hemoglobin 12.3 g/dL (14.1-18.0); Lymphocytes # 1.2 K/mm3 (0.7-4.5); Lymphocytes % 10.4 % (10-50); Mean Corpuscular HGB Conc 31.2 g/dL (31.8-35.4); Mean Corpuscular Volume 89.8 fl (80-94); Mean Platelet Volume 7.2 fl (7.4-10.4); Monocytes # 0.7 K/mm3 (0.1-1.0); Monocytes % 5.9 % (1.7-9.3); Neutrophils # 9.4 K/mm3 (1.8-7.8); Neutrophils % 82.2 % (37.0-80.0); Platelet Count 260 K/mm3 (142-424); Red Blood Count 4.37 M/mm3 (4.60-6.20); Red Cell Distribution Width 13.6 % (11.5-17.5); White Blood Count 11.5 K/mm3 (4.8-10.8)
[2020-02-04 06:32] LABS: Chloride 102 mmol/L (98-107); Sodium 135 mmol/L (136-145)
[2020-02-04 06:35] LABS: Blood Urea Nitrogen 14 mg/dl (9-20); Carbon Dioxide 25 mmol/L (22.0-30.0); Creatinine Clearance Estimated 87 mL/min (50-200); Estimated Glomerular Filt Rate 87 ml/min (>60); GFR (African American) 105 ML/MIN (>60)
[2020-02-04 06:36] LABS: Calcium 8.9 mg/dl (8.4-10.2); Glucose 113 mg/dl (74-100)
[2020-02-04 08:00] VITALS: BP 138/89; PULSE 103; RESP 18; TEMP 36.4; O2SAT 94
[2020-02-04 09:00] VITALS: PULSE 102
[2020-02-04 11:08] VITALS: BMI 21.7
--- NOTE | 2020-02-04 12:00 | HMH.CONFU ---
Internal Medicine - PN: Subj *Date: 02/04/20 *Time: 12:00 Interval history: 59-year-old male patient sitting up in chair respirations are easy and even, he denies any shortness of breath or chest pain. He reports that his pain is at a tolerable level. Today again stressed importance of abductor pillow and polar ice pack to right hip, patient verbalizes he will try to use abductor pillow more often. Patient is urinating without difficulty, he has not had a bowel movement yet Exam Vital signs and Labs for Last 24 Hours: Temp Pulse Resp BP Pulse Ox 97.6 F 102 H 18 138/89 94 L 02/04/20 08:00 02/04/20 09:00 02/04/20 08:00 02/04/20 08:00 02/04/20 08:00 Laboratory Results - last 24 hr 02/04/20 05:58: WBC 11.5 H, RBC 4.37 L, Hgb 12.3 L, Hct 39.3 L, MCV 89.8, MCH 28.0, MCHC 31.2 L, RDW 13.6, Plt Count 260, MPV 7.2 L, Neut % (Auto) 82.2 H, Lymph % (Auto) 10.4, Marshall % (Auto) 5.9, Eos % (Auto) 1.1, Baso % (Auto) 0.3, Neut # (Auto) 9.4 H, Lymph # (Auto) 1.2, Marshall # (Auto) 0.7, Eos # (Auto) 0.1, Baso # (Auto) 0.0 02/04/20 05:58: Sodium 135 L, Potassium 4.0, Chloride 102, Carbon Dioxide 25, Anion Gap 12.0, BUN 14, Creatinine 0.90, Estimated Creat Clear 87, Estimated GFR 87, Est GFR ( Amer) 105, Glucose 113 H, Calcium 8.9 I & O for Last 24 hours: Intake & Output 02/01/20 02/02/20 02/03/20 02/04/20 23:59 23:59 23:59 23:59 Intake Total 2447 / 2447 2394 / 2394 0 / 0 Output Total 350 / 350 900 / 900 Balance 2096 / 2097 1494 / 1494 0 / 0 Weight 165 lb 168 lb 1.6 oz 152 lb 1.903 oz - Constitutional no acute distress - *Routine HEENT Exam Head: Present: normocephalic. Absent: tenderness of temporal artery Eye: Present: EOMI. Absent: periorbital tenderness ENT: Present: mucous membranes moist. Absent: sinus tenderness - *Routine Neck Exam Present: trachea midline. Absent: JVD, tracheal deviation - *Routine Respiratory Exam Present: CTA bilaterally. Absent: accessory muscle use - *Routine Cardiovascular Exam Present: RRR. Absent: murmur - *Routine Abdominal Exam Present: soft, normoactive bowel sounds. Absent: tenderness, firm - *Routine Extremities Exam Present: pulses intact. Absent: cyanosis, clubbing, calf tenderness - *Routine Skin Exam Present: dry, warm, wounds. Absent: intact, cyanosis, erythema Comments: Elastaplast drsg R Hip - *Routine Neurological Exam Present: alert, oriented X3. Absent: altered mental status - Routine Psychiatric Exam Present: normal affect, normal thought process. Absent: auditory hallucinations, visual hallucinations Assessment and Plan (1) Avascular necrosis of bone of right hip Status: Acute Category: Medical Code(s): M87.051 - Idiopathic aseptic necrosis of right femur (2) Osteoarthritis of right hip Status: Acute Category: Medical Code(s): M16.11 - Unilateral primary osteoarthritis, right hip (3) S/P total hip arthroplasty Status: Acute Category: Surgical Code(s): Z96.649 - Presence of unspecified artificial hip joint (4) Old myocardial infarction Status: Acute Category: Medical Code(s): I25.2 - Old myocardial infarction (5) COPD (chronic obstructive pulmonary disease) Status: Chronic Qualifiers: COPD type: unspecified COPD Qualified Code(s): J44.9 - Chronic obstructive pulmonary disease, unspecified Category: Medical Code(s): J44.9 - Chronic obstructive pulmonary disease, unspecified (6) Tobacco dependence syndrome Status: Acute Category: Medical Code(s): F17.200 - Nicotine dependence, unspecified, uncomplicated (7) HLD (hyperlipidemia) Status: Acute Qualifiers: Hyperlipidemia type: unspecified Qualified Code(s): E78.5 - Hyperlipidemia, unspecified Category: Medical Code(s): E78.5 - Hyperlipidemia, unspecified (8) HTN (hypertension) Status: Acute Qualifiers: Hypertension type: essential hypertension Qualified Code(s): I10 - Essential (primary) hypertensi
--- NOTE | 2020-02-04 15:39 | PC.NURSE ---
1535 RN reassessment completed at this time. Pt has spent the day in the chair, has ambulated to the BR independently today using walker, no difficulty with ambulation. Pt has received PRN pain medication x2 this shift with adequate pain relief. Pt does complain of nausea after receiving pain medication, has received zofran 4mg x2 this shift with relief. Pt reports that pain in hip is now a 7 on a 0-10 scale which he reports is tolerable for him. Lung sounds CTA, no SOA. Abd soft and nontender with BS active in all quads. Pt reports voiding without difficulty, no BM this shift, does report flatus. Dressing to right hip is C/D/I. Pt is sitting up in the chair at this time watching television, no needs/concerns voiced. Pt reports that he has had a good day.
[2020-02-04 16:00] VITALS: BP 128/66; PULSE 73; RESP 19; TEMP 36.4; O2SAT 93
--- NOTE | 2020-02-04 16:34 | HMH.DCSUM ---
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 He was admitted to hospital following an uncomplicated primary right total hip arthroplasty on 02/02/2020. He has avascular necrosis of the right femoral head with early degenerative changes in the right hip. He continued to have significant pain and disability with his right hip. He localizes the pain around the hip joint with more severe pain over the right groin. He also reports radiation of the pain into the upper thigh. He rates his pain a 8 out of 10 at rest and a 10 out of 10 at its worst. He has had pain for almost 8 to 10 months now and reports gradual worsening. There is no history of any injury. He states walking, weightbearing, crossing his legs, standing and sitting aggravates his pain. He states he has tried Lidocaine patches, Naproxen and heat with little relief. He reports night pain and sleep disturbance. He is now mobilizing with a cane. He says the hip feels like it is going to give out but he has not had any falls. His walking distance is markedly limited and he reports significant problems with ADLs. He reports no problems with the left hip. He has history of paresthesias over both feet at baseline. He has history of heavy alcohol abuse in the past and patient states he stopped drinking alcohol about 13 years ago. He is also a chronic smoker. He has history of COPD and thinks he may have had steroids occasionally for management of exacerbations of his COPD. He does not work due to being disabled. His medical history includes hypertension, hyperlipidemia, coronary artery disease, COPD, depression and arthritis. He is not a known diabetic. He has history of coronary artery bypass surgery. Hospital Course Hospital Course: Following uncomplicated primary total hip arthroplasty patient was admitted to the inpatient [facility] and has progressed well. His postoperative check x-ray was satisfactory with good alignment and fixation of the components. He was advised to ambulate weightbearing as tolerated on the right side. Patient managed this very well using the walker. His pain is well controlled with as needed analgesics. His surgical incision is clean and dry without any active discharge or signs of infection. His distal neurovascular status is intact. No clinical evidence of DVT. Patient is eating and drinking well without any problems. Patient is medically stable at the time of discharge and was medically cleared for discharge by Dr. Crouch. The dressings were changed on the second postoperative day and the wound is healthy and healing well. No signs of any erythema, induration or discharge. In the hospital, patient received Xarelto 10 mg daily for DVT prophylaxis after surgery. His neurovascular status in both lower extremities is intact. Pedal pulses 2+ bilaterally and fully sensate distally. No clinical evidence of DVT noted. Patient was cleared for discharge by physical therapy. On the day of discharge, the wound is clean and dry. The patient's vital signs have been stable throughout and he is afebrile at the time of discharge. He is being discharged home with home health. Condition at discharge: improved and stable. Treatments and Procedures: Total hip arthroplasty, right hip; date of surgery 02/02/2020 Objective Vital signs: Temp Pulse Resp BP Pulse Ox 97.5 F L 73 19 128/66 93 L 02/04/20 16:00 02/04/20 16:00 02/04/20 16:00 02/04/20 16:00 02/04/20 16:00 no acute distress - *Routine HEENT Exam Head: Present: normocephalic Eye: Present: EOMI ENT: Present: mucous membranes moist - *Routine Neck Exam Present: supple, full ROM - *Routine Respiratory Exam Present: CTA bilaterally - *Routine Cardiovascular Exam Present: RRR, Normal S1, Normal S2
--- NOTE | 2020-02-04 17:12 | PC.NURSE ---
1700 Discharge education provided to pt at this time, questions encouraged and answered. Pt aware of new prescriptions and follow up appointment.
== END 2020-02-04 17:03 | disposition home health service (06) | DRG 470 ==
LOC: 2ND 12:19
PROVIDERS: Family Medicine; Admitting Provider Orthopaedic Surgery; PCP Nurse Practitioner Family; Visit Provider Orthopaedic Surgery
PROC: 0SR904A Replacement of Right Hip Joint with Ceramic on Polyethylene Synthetic Substitute, Uncemented, Open Approach (ICD-10-PCS; CPT 27130; principal; 2020-02-02 07:30)
DX: M87.851 Other osteonecrosis, right femur (principal); M16.11 Unilateral primary osteoarthritis, right hip; J44.9 Chronic obstructive pulmonary disease, unspecified; I25.10 Atherosclerotic heart disease of native coronary artery without angina pectoris; I10 Essential (primary) hypertension; I25.2 Old myocardial infarction; Z95.1 Presence of aortocoronary bypass graft; E78.5 Hyperlipidemia, unspecified; Z72.0 Tobacco use; G62.9 Polyneuropathy, unspecified; Z79.52 Long term (current) use of systemic steroids; Z88.0 Allergy status to penicillin; Z88.8 Allergy status to other drugs, medicaments and biological substances; Z79.899 Other long term (current) drug therapy
CPT/HCPCS: 27130; 36415; 71045; 73502; 80048; 80053; 80061; 81001; 85025; 86328; 86850; 94640; 96374; 97110; 97116; 97162; 97165; 97535; C1713; C1776; J2405; J2704; J3370

== ENCOUNTER → 2020-02-17 09:35 | Outpatient (CLI) | payer MEDICARE, MEDICAID, SELFPAY ==
--- NOTE | 2020-02-17 09:44 | XR_ITS ---
PROCEDURE: XR HIP RT 2-3V W/PELVIS CLINICAL INDICATION: sp RT BIN, dos 02/02/2020 Follow-up total hip replacement COMPARISON: CR XR HIP RT 2-3V W/PELVIS from 02/02/2020 FINDINGS: Status post total knee replacement with good alignment. No complications apparent. IMPRESSION: Good alignment status post total right hip replacement Dictated by: Toni Braden MD 02/17/2020 19:13 Toni Braden MD in [facility] 02/17/2020 19:13
== END ==
PROVIDERS: PCP Nurse Practitioner Family; Visit Provider Orthopaedic Surgery
DX: M25.551 Pain in right hip; Z96.641 Presence of right artificial hip joint
CPT/HCPCS: 73502

== ENCOUNTER → 2020-04-06 17:35 | Outpatient (CLI) | payer MEDICARE, MEDICAID, SELFPAY ==
[2020-04-06 18:43] LABS: Amphetamine/Metha Screen,Urine Negative ng/ml (<1000); Barbiturates Screen,Urine Negative ng/ml (<200)
[2020-04-06 18:44] LABS: Benzodiazepines Screen,Urine Negative ng/ml (<200)
[2020-04-06 18:45] LABS: Cannabinoid Screen,Urine Negative ng/ml (<50); Cocaine Screen,Urine Negative ng/ml (<300)
[2020-04-06 18:53] LABS: Methadone Screen,Urine Negative ng/ml (<300)
[2020-04-06 18:54] LABS: Opiate Screen,Urine Positive ng/ml (<300)
[2020-04-06 18:55] LABS: Phencyclidine Screen,Urine Negative ng/ml (<25)
== END ==
PROVIDERS: Visit Provider Nurse Practitioner Family
DX: Z79.899 Other long term (current) drug therapy (principal)
CPT/HCPCS: 80305

== ENCOUNTER → 2020-04-09 11:09 | Outpatient (CLI) | payer MEDICARE, MEDICAID, SELFPAY ==
--- NOTE | 2020-04-09 11:09 | MR_ITS ---
PROCEDURE: MR LUMBAR SPINE WO CON CLINICAL INDICATION: sp RT BIN; having pain lower right extremity tingling Pt denies injury or trauma. COMPARISON: No exams were available for comparison TECHNIQUE: Standard multiplanar multiecho sequences are performed without contrast. 3-D MIP and myelographic images are also rendered and reviewed FINDINGS: There is normal alignment. The spinal cord ends at the L2 level. T12-L1: Mild degenerative disc disease. L1-L2: Mild disc desiccation. L2-L3: Unremarkable L3-L4:: There is some focal increased T2 signal involving the posterior aspect of the disc and right lateral aspect of the disc. This is of questionable clinical significance. The disc height is well preserved. L4-5:: There is some increased T2 signal involving the posterior and right aspect of the disc of uncertain clinical significance. The disc height is preserved. L5-S1: Mild facet hypertrophic change with moderate bilateral foraminal narrowing No extruded herniated disc or canal stenosis. IMPRESSION: Mild lumbar spondylosis. Please see above for detailed description at each level. No extruded herniated disc or canal stenosis. Dictated by: Toni Braden MD 04/10/2020 08:51 Toni Braden MD in [facility] 04/10/2020 08:51
== END ==
PROVIDERS: PCP Nurse Practitioner Family; Visit Provider Orthopaedic Surgery
DX: M25.551 Pain in right hip; Z96.641 Presence of right artificial hip joint; M54.5 Low back pain
CPT/HCPCS: 72148; 76376

== ENCOUNTER → 2020-06-15 13:09 | Outpatient (CLI) | payer MEDICARE, MEDICAID, SELFPAY ==
--- NOTE | 2020-06-15 13:14 | XR_ITS ---
PROCEDURE: XR HIP RT 2-3V W/PELVIS CLINICAL INDICATION: replacement COMPARISON: No exams were available for comparison FINDINGS: Total right hip arthroplasty is noted. Satisfactory alignment. No periprosthetic fractures. No periprosthetic lucency to suggest loosening or infection. Bone density is normal. Degenerative changes of the visualized lumbar spine. IMPRESSION: Total right hip arthroplasty. No interval change. Dictated by: Ginette Esqueda 06/15/2020 14:15 Ginette Esqueda in [facility] 06/15/2020 14:15
== END ==
PROVIDERS: PCP Nurse Practitioner Family; Visit Provider Orthopaedic Surgery
DX: M25.551 Pain in right hip; Z96.641 Presence of right artificial hip joint
CPT/HCPCS: 73502

== ENCOUNTER → 2020-06-19 08:16 | Outpatient (CLI) | payer MEDICARE, MEDICAID, SELFPAY ==
[2020-06-19 08:34] LABS: Basophils # 0.1 K/mm3 (0-0.2); Basophils % 0.7 % (0.1-2.0); Eosinophils # 0.3 K/mm3 (0.0-0.4); Eosinophils % 3.4 % (0.1-12.0); Hematocrit 48.7 % (42.0-52.0); Hemoglobin 15.3 g/dL (14.1-18.0); Lymphocytes # 2.3 K/mm3 (0.7-4.5); Lymphocytes % 25.9 % (10-50); Mean Corpuscular HGB Conc 31.5 g/dL (31.8-35.4); Mean Corpuscular Hemoglobin 28.8 pg (27.0-31.2); Mean Corpuscular Volume 91.5 fl (80-94); Mean Platelet Volume 7.4 fl (7.4-10.4); Monocytes # 0.7 K/mm3 (0.1-1.0); Monocytes % 7.9 % (1.7-9.3); Neutrophils # 5.5 K/mm3 (1.8-7.8); Neutrophils % 62.1 % (37.0-80.0); Platelet Count 273 K/mm3 (142-424); Red Blood Count 5.32 M/mm3 (4.60-6.20); Red Cell Distribution Width 14.8 % (11.5-17.5); White Blood Count 8.9 K/mm3 (4.8-10.8)
[2020-06-19 09:29] LABS: Erythrocyte Sedimentation Rate 13 mm/hr (0-20)
[2020-06-19 13:15] LABS: C-Reactive Protein 18.4 mg/L (0-4)
== END ==
PROVIDERS: Visit Provider Orthopaedic Surgery
DX: T84.84XA Pain due to internal orthopedic prosthetic devices, implants and grafts, initial encounter (principal); Z96.641 Presence of right artificial hip joint
CPT/HCPCS: 36415; 85025; 85651; 86140

== ENCOUNTER → 2020-11-09 13:55 | Outpatient (CLI) | payer MEDICARE, MEDICAID, SELFPAY ==
[2020-11-09 14:27] LABS: Alanine Aminotransferase 21 U/L (12-78); Albumin/Globulin Ratio 1.5 (1.1-1.8); Alkaline Phosphatase 81 U/L (38-126); Anion Gap 10.6 mEq/L (5-15); Aspartate Amino Transferase 33 U/L (17-59); Bilirubin,Total 0.4 mg/dl (0.2-1.3); Blood Urea Nitrogen 14 mg/dl (9-20); Calcium 9.1 mg/dl (8.4-10.2); Carbon Dioxide 30 mmol/L (22.0-30.0); Chloride 107 mmol/L (98-107); Chol/HDL Ratio 3.2 (1-3.5); Cholesterol 113 mg/dl (140-200); Estimated Glomerular Filt Rate 99 ml/min (>60); GFR (African American) 120 ML/MIN (>60); Globulin 2.6 g/dL (1.3-3.2); Glucose 88 mg/dl (74-100); HDL Cholesterol 35 mg/dl (40-60); Potassium 4.6 mmoL/L (3.5-5.1); Sodium 143 mmol/L (136-145); Total Protein,Serum 6.6 g/dl (6.3-8.2); Triglycerides 71 mg/dl (30-150); VLDL Cholesterol 14 mg/dL (0-40)
[2020-11-09 14:30] LABS: Basophils # 0.1 K/mm3 (0-0.2); Eosinophils # 0.2 K/mm3 (0.0-0.4); Eosinophils % 3.3 % (0.1-12.0); Hematocrit 49.8 % (42.0-52.0); Hemoglobin 15.9 g/dL (14.1-18.0); Lymphocytes # 1.9 K/mm3 (0.7-4.5); Lymphocytes % 26.4 % (10-50); Mean Corpuscular HGB Conc 31.9 g/dL (31.8-35.4); Mean Corpuscular Hemoglobin 30.1 pg (27.0-31.2); Mean Corpuscular Volume 94.4 fl (80-94); Mean Platelet Volume 9.2 fl (7.4-10.4); Monocytes # 0.4 K/mm3 (0.1-1.0); Monocytes % 5.3 % (1.7-9.3); Neutrophils # 4.5 K/mm3 (1.8-7.8); Neutrophils % 64.1 % (37.0-80.0); Platelet Count 308 K/mm3 (142-424); Red Blood Count 5.28 M/mm3 (4.60-6.20); Red Cell Distribution Width 14.1 % (11.5-17.5); White Blood Count 7.1 K/mm3 (4.8-10.8)
[2020-11-09 14:41] LABS: Direct LDL Cholesterol 58.61 mg/dL (100-129)
[2020-11-09 14:46] LABS: T4 (Thyroxine) 10.4 ug/dl (5.53-11.0)
[2020-11-09 14:59] LABS: Prostate Specific Ag, Diagnost 1.36 ng/ml (0.0-4.0); Thyroid Stimulating Hormone 1.38 uIU/mL (0.465-4.68)
[2020-11-09 16:15] LABS: Hemoglobin A1C 5.6 % (4.0-6.0)
== END ==
PROVIDERS: Visit Provider Nurse Practitioner Family
DX: G62.9 Polyneuropathy, unspecified (principal); M87.051 Idiopathic aseptic necrosis of right femur; I25.2 Old myocardial infarction; R06.00 Dyspnea, unspecified; C61 Malignant neoplasm of prostate; E11.9 Type 2 diabetes mellitus without complications; Z72.0 Tobacco use
CPT/HCPCS: 80053; 80061; 83036; 84153; 84436; 84443; 85025

== ENCOUNTER 2020-12-11 13:22 | Emergency (ER) | payer MEDICARE, MEDICAID, SELFPAY ==
[2020-12-11 13:33] VITALS: BP 165/90; PULSE 91; RESP 20; TEMP 37; O2SAT 99; BMI 23.3
--- NOTE | 2020-12-11 13:56 | HMH.EDGENADL ---
ED Disposition Clinical Impression: Right lower lobe pneumonia Qualifiers: Pneumonia type: due to unspecified organism Qualified Code(s): J18.9 - Pneumonia, unspecified organism Disposition: Home, Self-Care Condition on Discharge: Good Instructions: Pneumonia-Adult Prescriptions: cephALEXin [Cephalexin 500mg Tab] 500 mg PO Q12H #20 tab Transmission Status: Pending to [facility] Doxycycline Hyclate [Doxycycline Hyclate 100mg Tablet] 100 mg PO Q12 #20 tab Transmission Status: Pending to [facility] Referrals: Loc Huffman APRN [Primary Care Provider] - - Critical Care Critical Care Time: No Attestation: On 12/11/20, the high probability of a clinically significant, sudden or life threatening deterioration of the following system(s) required my full and direct attention, intervention and personal management. The time I documented below is in addition to time spent performing reported procedures but includes the following listed in this critical care notation. Medical Decision Making - Medical Records Medical records reviewed: Yes: I reviewed the patient's medical records. - Jose Inquiry Pt receiving controlled substance: No Vital Signs: 12/11/20 13:33 Temperature 98.6 F Temperature Source Oral Pulse Rate [Left Radial] 91 H Respiratory Rate 20 Blood Pressure [Right Arm] 165/90 H Blood Pressure Mean [Right Arm] 115 Blood Pressure Source [Right Arm] Automatic Cuff Blood Pressure Position [Right Arm] Sitting 02 Sat by Pulse Oximetry 99 Oxygen Delivery Method Room Air - Lab Data Lab Results 12/11/20 13:41: Urine Color Yellow, Urine Appearance Clear, Urine pH 6.0, Ur Specific [place] 1.015, Urine Protein Negative, Urine Glucose (UA) Negative, Urine Ketones Negative, Urine Blood Trace-i, Urine Nitrate Negative, Urine Bilirubin Negative, Urine Urobilinogen 0.2, Ur Leukocyte Esterase Negative, Urine RBC Occasional, Urine WBC None, Ur Squamous Epith Cells None, Urine Bacteria Trace 12/11/20 13:47: WBC 7.6, RBC 4.78, Hgb 14.5, Hct 45.1, MCV 94.3 H, MCH 30.4, MCHC 32.2, RDW 14.4, Plt Count 277, MPV 8.1, Neut % (Auto) 70.6, Lymph % (Auto) 17.9, Fleming % (Auto) 6.9, Eos % (Auto) 4.1, Baso % (Auto) 0.6, Neut # (Auto) 5.3, Lymph # (Auto) 1.4, Fleming # (Auto) 0.5, Eos # (Auto) 0.3, Baso # (Auto) 0.1 12/11/20 13:47: Sodium 143, Potassium 3.5, Chloride 107, Carbon Dioxide 29, Anion Gap 10.5, BUN 5 L, Creatinine 0.70, Estimated Creat Clear 119, Estimated GFR 115, Est GFR ( Amer) 140, Glucose 67 L, Calcium 8.8, Total Bilirubin 0.3, AST 33, ALT 28, Alkaline Phosphatase 85, Total Protein 6.7, Albumin 4.1, Globulin 2.6, Albumin/Globulin Ratio 1.6, Lipase 52 Result diagrams: 12/11/20 13:47 12/11/20 13:47 Orders (Tests/Meds): ORDERS Category Date Time Status XR chest portable Stat Exams 12/11/20 14:14 Taken - Radiology Data #1 Image(s): Chest Image Reviewed: Yes I reviewed the patient's radiology results, Yes I reviewed the patient's radiology image Right lower lobe infiltrate consistent with pneumonia - Reevaluation(s) Time: 14:36 Reevaluation #1: On reevaluation, the patient is feeling better. He does have findings consistent with pneumonia. Is no hypoxia or respiratory distress. Patient's kidney function appears normal. Patient be placed on short course antibiotics. Needs follow-up with PCP in 48 hours. Given strict return precautions. Verbalized understanding. Medical Decision Narrative: 60-year-old male presented with some generalized weakness and increased urinary frequency. The patient has benign examination on initial presentation. Hemodynamically is stable. Do believe the patient's symptoms could be secondary to glucosuria or urinary tract infection. Work-up will be initiated. General Adult HPI - General Chief complaint: Weakness Stated complaint: urinating frequently,weak,lightheaded Time Seen by Provider: 12/11/20 13:35 Mode of Arrival: Ambulator
[2020-12-11 14:04] LABS: Chloride 107 mmol/L (98-107); Potassium 3.5 mmoL/L (3.5-5.1); Sodium 143 mmol/L (136-145)
[2020-12-11 14:04] LABS: Appearance,Urine CLEAR (Clear); Bilirubin,Urine Negative (Negative); Blood, Urine TRACE-I (Negative); Color,Urine YELLOW (Yellow); Glucose,Urine (UA) Negative (Negative); Ketones,Urine Negative (Negative); Leukocyte Esterase,Urine Negative (Negative); Microscopic, Urine URINE MICROSCOPIC (MICROSCOPIC); Nitrate,Urine Negative (Negative); Protein,Urine Negative (Negative); Specific Gravity, Urine 1.015 (1.005-1.030); Urobilinogen,Urine 0.2 EU/dl (0.2)
[2020-12-11 14:07] LABS: Alanine Aminotransferase 28 U/L (12-78); Albumin Level 4.1 g/dl (3.5-5.0); Albumin/Globulin Ratio 1.6 (1.1-1.8); Alkaline Phosphatase 85 U/L (38-126); Anion Gap 10.5 mEq/L (5-15); Aspartate Amino Transferase 33 U/L (17-59); Bilirubin,Total 0.3 mg/dl (0.2-1.3); Blood Urea Nitrogen 5 mg/dl (9-20); Calcium 8.8 mg/dl (8.4-10.2); Carbon Dioxide 29 mmol/L (22.0-30.0); Creatinine Clearance Estimated 119 mL/min (50-200); Estimated Glomerular Filt Rate 115 ml/min (>60); GFR (African American) 140 ML/MIN (>60); Globulin 2.6 g/dL (1.3-3.2); Glucose 67 mg/dl (74-100); Lipase 52 U/L (23-300); Total Protein,Serum 6.7 g/dl (6.3-8.2)
--- NOTE | 2020-12-11 14:14 | XR_ITS ---
PROCEDURE INFORMATION: Exam: XR Chest Exam date and time: 12/11/2020 2:14 PM Age: 60 years old Clinical indication: Cough TECHNIQUE: Imaging protocol: XR of the chest. Views: 1 view. COMPARISON: CR XR CHEST PORTABLE 02/02/2020 6:30 AM FINDINGS: Lungs: Emphysematous change. Pleural spaces: Unremarkable. No pleural effusion. No pneumothorax. Heart/Mediastinum: Unremarkable. No cardiomegaly. Bones/joints: No acute findings. Sternotomy. IMPRESSION: No acute findings.
[2020-12-11 14:15] LABS: Basophils # 0.1 K/mm3 (0-0.2); Basophils % 0.6 % (0.1-2.0); Eosinophils # 0.3 K/mm3 (0.0-0.4); Eosinophils % 4.1 % (0.1-12.0); Hematocrit 45.1 % (42.0-52.0); Hemoglobin 14.5 g/dL (14.1-18.0); Lymphocytes # 1.4 K/mm3 (0.7-4.5); Lymphocytes % 17.9 % (10-50); Mean Corpuscular HGB Conc 32.2 g/dL (31.8-35.4); Mean Corpuscular Hemoglobin 30.4 pg (27.0-31.2); Mean Corpuscular Volume 94.3 fl (80-94); Mean Platelet Volume 8.1 fl (7.4-10.4); Monocytes # 0.5 K/mm3 (0.1-1.0); Monocytes % 6.9 % (1.7-9.3); Neutrophils # 5.3 K/mm3 (1.8-7.8); Neutrophils % 70.6 % (37.0-80.0); Platelet Count 277 K/mm3 (142-424); Red Blood Count 4.78 M/mm3 (4.60-6.20); Red Cell Distribution Width 14.4 % (11.5-17.5); White Blood Count 7.6 K/mm3 (4.8-10.8)
[2020-12-11 14:17] LABS: Bacteria,Urine Trace /lpf; RBC,Urine Occasional #/hpf (0-3)
[2020-12-11 14:45] VITALS: BP 160/89; PULSE 89; RESP 20; TEMP 36.9; O2SAT 99
== END 2020-12-11 14:51 | disposition home or self-care (01) ==
PROVIDERS: Emergency Provider Emergency Medicine; PCP Nurse Practitioner Family
DX: J18.9 Pneumonia, unspecified organism (principal); K21.9 Gastro-esophageal reflux disease without esophagitis; I25.10 Atherosclerotic heart disease of native coronary artery without angina pectoris; J44.9 Chronic obstructive pulmonary disease, unspecified; I25.2 Old myocardial infarction; E78.5 Hyperlipidemia, unspecified; I10 Essential (primary) hypertension; F17.210 Nicotine dependence, cigarettes, uncomplicated; Z88.0 Allergy status to penicillin; Z79.899 Other long term (current) drug therapy
CPT/HCPCS: 71045; 80053; 81001; 83690; 85025; 99283

== ENCOUNTER → 2021-04-05 14:47 | Outpatient (CLI) | payer MEDICARE, MEDICAID, SELFPAY ==
[2021-04-05 15:23] LABS: Amphetamine/Metha Screen,Urine Negative ng/ml (<1000)
[2021-04-05 15:24] LABS: Barbiturates Screen,Urine Negative ng/ml (<200)
[2021-04-05 15:25] LABS: Benzodiazepines Screen,Urine Negative ng/ml (<200); Cannabinoid Screen,Urine Negative ng/ml (<50)
[2021-04-05 15:26] LABS: Cocaine Screen,Urine Negative ng/ml (<300); Methadone Screen,Urine Negative ng/ml (<300)
[2021-04-05 15:27] LABS: Opiate Screen,Urine Negative ng/ml (<300)
[2021-04-05 15:28] LABS: Phencyclidine Screen,Urine Negative ng/ml (<25)
== END ==
PROVIDERS: Visit Provider Nurse Practitioner Family
DX: M25.511 Pain in right shoulder (principal)
CPT/HCPCS: 80305

== ENCOUNTER → 2021-05-10 10:14 | Outpatient (CLI) | payer MEDICARE, MEDICAID, SELFPAY ==
--- NOTE | 2021-05-10 10:16 | CA_ITS ---
APPROVED REPORT EXAM: Comprehensive 2D, Doppler, and color-flow Echocardiogram Quantitative Strategy Analyst: Raven Alva RVT Ht: 5 ft 10 in Wt: 167lbs BSA: 1.93 BP: 141/86 mmHg Indications: SOA,CAD,CABG,COPD,SMOKER,HTN,HLD 2D Dimensions LVOT 2.10 cm (M/F) 1.5-2.5 LA Volume 23.40 mL LA Volume Index 12.12 mL/m2 (M/F) 16-34 M-Mode Dimensions RVDd 3.20 cm (0.9-2.6) LA Diam 3.62 cm (1.9-4.0) LVDd 4.22 cm (3.5-5.7) Ao Diam 4.31 cm (2.0-3.7) LVDs 2.63 cm (3.5-5.7) IVSd 1.07 cm (0.6-1.1) PWd 0.80 cm (0.6-1.1) EF (Teich) 68.20% FS 37.70% EDV (Teich) 79.50 mL TAPSE 2.34 (<1.7) ESV (Teich) 25.30 mL LV Diastology E Decel Time 223.00 (160-240 msec) E/A Ratio 0.7 MED E' 5.20 (< 7 cm/sec) E'/MED E' Ratio 9.46 (>14) LAT E' 8.50 (<10 cm/sec) E/LAT E' Ratio 5.79 (>14) Aortic Valve AI PHT 928.00 ms AO Peak GR. 2.70 mmHg Mitral Valve MV E Max Kimani. 49.00 (40-130 cm/s) MV A Velocity 69.00 (40-130 cm/s) E/A Ratio 0.71 MV Decel. Time 223.00 (160-240 ms) MV PHT 65.00 ms Pulmonary Valve PV Peak Velocity 61.00 (50-150 cm/s) Tricuspid Valve TR P. Velocity 217.00 cm/s RAP Estimate 10.00 mmHg RVSP 28.80 mmHg Left Ventricle Left atrium is mildly enlarged, left ventricle is normal size, mild concentric left ventricular hypertrophy, estimated ejection fraction 55% with no regional wall motion abnormality, grade 1 diastolic dysfunction seen without tissue Doppler evidence of raise left atrial pressure. Right Ventricle Right atrium and right ventricle are mildly enlarged with normal contractility. Aortic Valve Aortic valve is minimally thickened and fibrosed, there is no aortic stenosis, there is trace aortic insufficiency. Mitral Valve Mitral valve is grossly normal, there is trace mitral regurgitation. Tricuspid Valve Tricuspid valve grossly normal, there is trace tricuspid regurgitation, tricuspid regurgitation jet velocity is inadequate for calculation of the right ventricular systolic pressure. Pulmonic Valve Pulmonic valve is poorly visualized. Great Vessels Aortic root is normal size. Inferior vena cava normal size with normal inspiratory collapse. Pericardium No significant pericardial effusion noted. Conclusion 1. Mild biatrial enlargement, normal left ventricular size, mild concentric left ventricular hypertrophy, estimated ejection fraction 55% with no regional wall motion abnormality, grade 1 diastolic dysfunction seen without tissue Doppler evidence of raise left atrial pressure. 2. Mildly enlarged right ventricle with normal contractility. 3. Trace aortic, mild mitral and tricuspid regurgitation. 4. No significant pericardial effusion noted. 5. Inferior vena cava is normal size with normal inspiratory collapse. Electronically signed by : Lino Torre MD 05/10/2021 20:39:05
== END ==
PROVIDERS: PCP Nurse Practitioner Family; Visit Provider Physician Assistant
DX: E78.5 Hyperlipidemia, unspecified (principal); F17.200 Nicotine dependence, unspecified, uncomplicated; I10 Essential (primary) hypertension; I25.10 Atherosclerotic heart disease of native coronary artery without angina pectoris; I25.2 Old myocardial infarction; J44.9 Chronic obstructive pulmonary disease, unspecified; R06.00 Dyspnea, unspecified; R09.89 Other specified symptoms and signs involving the circulatory and respiratory systems; R42 Dizziness and giddiness; Z01.810 Encounter for preprocedural cardiovascular examination; Z95.1 Presence of aortocoronary bypass graft
CPT/HCPCS: 93306

== ENCOUNTER 2021-06-16 20:30 | Observation (INO) | payer MEDICARE, MEDICAID, SELFPAY ==
[2021-06-16 20:31] VITALS: BP 132/76; PULSE 78; RESP 16; TEMP 36.9; O2SAT 99; BMI 23.3
[2021-06-16 20:50] VITALS: BP 130/82; PULSE 74; O2SAT 97
[2021-06-16 20:54] LABS: Microscopic, Urine URINE MICROSCOPIC (MICROSCOPIC)
--- NOTE | 2021-06-16 20:56 | XR_ITS ---
PROCEDURE INFORMATION: Exam: XR Chest Exam date and time: 06/16/2021 9:46 PM Age: 61 years old Clinical indication: Other: Weakness; Prior surgery; Surgery type: Open heart TECHNIQUE: Imaging protocol: XR of the chest. Views: 2 views. COMPARISON: CR XR CHEST PORTABLE 12/11/2020 2:24 PM FINDINGS: Lungs: No acute airspace consolidation. No appreciable pulmonary edema. Subsegmental atelectasis/scarring in the lingula. Few calcified pulmonary granulomata compatible with chronic sequelae of prior granulomatous disease, unchanged. Pleural spaces: No pleural effusion. No pneumothorax. Heart/Mediastinum: Cardiomediastinal silhouette is unchanged. Bones/joints: No acute osseous abnormality. Soft tissues: Unremarkable. IMPRESSION: No evidence of acute cardiopulmonary disease.
[2021-06-16 20:57] LABS: Appearance,Urine CLEAR (Clear); Blood, Urine Negative (Negative); Color,Urine YELLOW (Yellow); Glucose,Urine (UA) Negative (Negative); Ketones,Urine Negative (Negative); Leukocyte Esterase,Urine Negative (Negative); Nitrate,Urine Negative (Negative); Protein,Urine TRACE (Negative); Specific Gravity, Urine >= 1.030 (1.005-1.030); Urobilinogen,Urine 0.2 EU/dl (0.2)
--- NOTE | 2021-06-16 20:59 | ECG_ITS ---
APPROVED REPORT Exam: Resting ECG HR:76 bpm ECG Measurements Heart Rate 76 AXES ID 162 P 61 QRSd 98 QRS 33 QT 360 T 73 QTc 390 Conclusion SINUS RHYTHM INCOMPLETE RIGHT BUNDLE BRANCH BLOCK [90+ ms QRS DURATION, TERMINAL R IN V1/V2, 40+ ms S IN I/aVL/V4/V5/V6] BORDERLINE ECG UNCONFIRMED REPORT Electronically signed by : Terry Perez MD 06/18/2021 07:54:02
[2021-06-16 21:02] LABS: Bilirubin,Urine 1+ (Negative)
[2021-06-16 21:21] LABS: Bacteria,Urine Trace /lpf
[2021-06-16 21:30] VITALS: BP 107/65; PULSE 74; O2SAT 95
[2021-06-16 21:37] LABS: Alanine Aminotransferase 20 U/L (12-78); Albumin/Globulin Ratio 1.6 (1.1-1.8); Alkaline Phosphatase 80 U/L (38-126); Amylase 43 U/L (30-110); Anion Gap 12.6 mEq/L (5-15); Aspartate Amino Transferase 31 U/L (17-59); Bilirubin,Total 0.2 mg/dl (0.2-1.3); Blood Urea Nitrogen 19 mg/dl (9-20); Calcium 8.8 mg/dl (8.4-10.2); Carbon Dioxide 24 mmol/L (22.0-30.0); Chloride 104 mmol/L (98-107); Creatinine Clearance Estimated 46 mL/min (50-200); Estimated Glomerular Filt Rate 39 ml/min (>60); GFR (African American) 47 ML/MIN (>60); Globulin 2.5 g/dL (1.3-3.2); Glucose 93 mg/dl (74-100); Lipase 41 U/L (23-300); Potassium 3.6 mmoL/L (3.5-5.1); Sodium 137 mmol/L (136-145); Total Protein,Serum 6.5 g/dl (6.3-8.2)
[2021-06-16 21:43] LABS: C-Reactive Protein 16.8 mg/L (0-4)
--- NOTE | 2021-06-16 21:50 | CT_ITS ---
PROCEDURE INFORMATION: Exam: CT Abdomen And Pelvis With Contrast Exam date and time: 06/16/2021 9:56 PM Age: 61 years old Clinical indication: Abdominal pain; Generalized; Prior surgery; Surgery date: 6+ months; Surgery type: Inguinal hernia as child TECHNIQUE: Imaging protocol: Computed tomography of the abdomen and pelvis with contrast. Radiation optimization: All CT scans at this facility use at least one of these dose optimization techniques: automated exposure control; mA and/or kV adjustment per patient size (includes targeted exams where dose is matched to clinical indication); or iterative reconstruction. Contrast material: ISOVUE; Contrast volume: 60 ml; Contrast route: IV; COMPARISON: CR XR HIP RT 2-3V W/PELVIS 06/15/2020 1:16 PM FINDINGS: Liver: Unremarkable. Gallbladder and bile ducts: Unremarkable. Pancreas: Unremarkable. Spleen: Scattered punctate calcifications in the spleen, compatible with sequelae of prior granulomatous disease. Adrenal glands: Unremarkable. Kidneys and ureters: Unremarkable. Stomach and bowel: Few modestly distended small bowel loops in the left upper quadrant with air-fluid levels. Colonic diverticulosis without inflammatory changes. No small bowel dilation to suggest obstruction. Appendix: Appendix is visualized and is normal. Intraperitoneal space: No free fluid. No pneumoperitoneum. Vasculature: Moderate amount of calcific arterial atherosclerosis. No abdominal aortic aneurysm or dissection. Lymph nodes: Unremarkable. Urinary bladder: Unremarkable. Reproductive: Prostate is enlarged, measuring approximately 5.5 cm in transverse axis. Bones/joints: Total right hip arthroplasty. Bulky facet osteophytosis on the left at T11-T12 extending approximately 7 mm into the spinal canal with questionable mass effect on the spinal cord, likely chronic. No acute osseous abnormality. Syndesmotic fusion of intervertebral disc spaces and fusion of the bilateral sacroiliac joints, compatible with ankylosing spondylitis. Soft tissues: No evidence of inguinal hernia. IMPRESSION: 1. Few modestly distended small bowel loops in the left upper quadrant with air-fluid levels, compatible with ileus vs gastroenteritis. Early small bowel obstruction not excluded. 2. Bulky facet osteophytosis on the left at T11-T12 extending approximately 7 mm into the spinal canal with questionable mass effect on the spinal cord, likely chronic. Recommend correlation with patient history and prior imaging if available. 3. Syndesmotic fusion of intervertebral disc spaces and fusion of the bilateral sacroiliac joints, compatible with ankylosing spondylitis. 4. Colonic diverticulosis without evidence of acute diverticulitis. 5. Enlarged prostate. Please correlate with PSA.
[2021-06-16 21:52] LABS: Basophils # 0.2 K/mm3 (0-0.2); Basophils % 2.1 % (0.1-2.0); Eosinophils # 0.3 K/mm3 (0.0-0.4); Eosinophils % 3.3 % (0.1-12.0); Hematocrit 44.2 % (42.0-52.0); Hemoglobin 14.6 g/dL (14.1-18.0); Lymphocytes # 2.1 K/mm3 (0.7-4.5); Lymphocytes % 23.5 % (10-50); Mean Corpuscular Hemoglobin 30.7 pg (27.0-31.2); Mean Platelet Volume 7.9 fl (7.4-10.4); Monocytes # 0.6 K/mm3 (0.1-1.0); Monocytes % 6.5 % (1.7-9.3); Neutrophils # 5.7 K/mm3 (1.8-7.8); Neutrophils % 64.7 % (37.0-80.0); Platelet Count 281 K/mm3 (142-424); Red Blood Count 4.75 M/mm3 (4.60-6.20); Red Cell Distribution Width 14.5 % (11.5-17.5); White Blood Count 8.9 K/mm3 (4.8-10.8)
[2021-06-16 21:53] LABS: Troponin I < 0.01 ng/ml (0.00-0.034)
[2021-06-16 21:56] LABS: Procalcitonin 0.237 ng/mL (0.0-2.0)
[2021-06-16 22:24] LABS: Erythrocyte Sedimentation Rate 16 mm/hr (0-20)
--- NOTE | 2021-06-16 23:07 | HMH.EDWEAK ---
ED Disposition Clinical Impression: Acute dyspnea, LAYLA (acute kidney injury), Hx of CABG COPD (chronic obstructive pulmonary disease) Qualifiers: COPD type: unspecified COPD Qualified Code(s): J44.9 - Chronic obstructive pulmonary disease, unspecified Disposition: Admitted as Observation Condition on Discharge: Good Referrals: Loc Huffman APRN [Primary Care Provider] - - Critical Care Critical Care Time: No Attestation: On 06/16/21, the high probability of a clinically significant, sudden or life threatening deterioration of the following system(s) required my full and direct attention, intervention and personal management. The time I documented below is in addition to time spent performing reported procedures but includes the following listed in this critical care notation. Medical Decision Making - Medical Records Medical records reviewed: Yes: I reviewed the patient's medical records. - Jose Inquiry Pt receiving controlled substance: No Vital Signs: 06/16/21 20:31 06/16/21 20:50 06/16/21 21:30 Temperature 98.4 F Temperature Source Oral Pulse Rate 74 74 Pulse Rate [Right] 78 Respiratory Rate 16 Blood Pressure 130/82 107/65 L Blood Pressure [Right Arm] 132/76 Blood Pressure Mean 92 79 Blood Pressure Mean [Right Arm] 94 02 Sat by Pulse Oximetry 99 97 95 - Lab Data Lab results reviewed: Yes: I reviewed the patient's lab results. Lab Results 06/16/21 20:50: Urine Color Yellow, Urine Appearance Clear, Urine pH 5.0, Ur Specific [place] >= 1.030, Urine Protein Trace, Urine Glucose (UA) Negative, Urine Ketones Negative, Urine Blood Negative, Urine Nitrate Negative, Urine Bilirubin 1+ A, Urine Urobilinogen 0.2, Ur Leukocyte Esterase Negative, Urine RBC None, Urine WBC 3-5, Ur Squamous Epith Cells 3-5, Urine Bacteria Trace 06/16/21 21:06: WBC 8.9, RBC 4.75, Hgb 14.6, Hct 44.2, MCV 93.0, MCH 30.7, MCHC 33.0, RDW 14.5, Plt Count 281, MPV 7.9, Neut % (Auto) 64.7, Lymph % (Auto) 23.5, Meagher % (Auto) 6.5, Eos % (Auto) 3.3, Baso % (Auto) 2.1 H, Neut # (Auto) 5.7, Lymph # (Auto) 2.1, Meagher # (Auto) 0.6, Eos # (Auto) 0.3, Baso # (Auto) 0.2, ESR 16 06/16/21 21:06: Sodium 137, Potassium 3.6, Chloride 104, Carbon Dioxide 24, Anion Gap 12.6, BUN 19, Creatinine 1.80 H, Estimated Creat Clear 46, Estimated GFR 39 L, Est GFR ( Amer) 47 L, Glucose 93, Calcium 8.8, Total Bilirubin 0.2, AST 31, ALT 20, Alkaline Phosphatase 80, C-Reactive Protein 16.8 H, Total Protein 6.5, Albumin 4.0, Globulin 2.5, Albumin/Globulin Ratio 1.6, Amylase 43, Lipase 41, Procalcitonin 0.237 06/16/21 21:06: Lactate 1.0 06/16/21 21:06: Troponin I < 0.01 Result diagrams: 06/16/21 21:06 06/16/21 21:06 Orders (Tests/Meds): ED MEDICATIONS Generic Name Dose Route Start Last Admin Trade Name Freq PRN Reason Stop Dose Admin Sodium Chloride 1,000 mls @ 999 mls/hr 06/16/21 21:00 06/16/21 21:24 Sod Chlor 0.9% 1000ml Bag IV 06/16/21 22:00 999 mls/hr .Q1H1M MARKELL Administration Discontinued Medications Generic Name Dose Route Start Last Admin Trade Name Freq PRN Reason Stop Dose Admin Iopamidol 60 ml 06/16/21 22:05 06/16/21 22:06 Iopamidol-370 (76%);100ml Bottle IV 06/16/21 22:06 60 ml ONCE ONE Administration Sodium Chloride 10 ml 06/16/21 22:05 06/16/21 22:06 Sodium Chloride 0.9% 10ml Syr (Rad Only) IV 06/16/21 22:06 10 ml ONCE ONE Administration ORDERS Category Date Time Status Troponin I Q3H Lab 06/17/21 00:30 Ordered Troponin I Q3H Lab 06/17/21 03:30 Ordered Blood Culture Stat Micro 06/16/21 21:06 Received - Radiology Data #1 Image(s): Chest Image Reviewed: Yes I have reviewed radiologist's interpretation Preliminary Findings: Normal/NAD - ECG Data Tracing #1 I reviewed this ECG and interpreted as documented below: Normal Sinus Rhythm: Yes Ischemic changes: non-specific ST-T wave changes - ZHENG Score for Non-Stemi Age of Patient: 60-69 years old Hear
--- NOTE | 2021-06-16 23:12 | PC.NURSE ---
Updated pt on POC. No new needs at this time.
--- NOTE | 2021-06-16 23:53 | PC.NURSE ---
Notified journeyman powerhouse operator of pt admission and need for bed assignment
[2021-06-17] VITALS (33 sets, daily range): BP systolic 101–154; BP diastolic 54–99; PULSE 58–82; RESP 17–20; TEMP 36.4–37.1; O2SAT 90–99; BMI 23.3; BMI 24.0
--- NOTE | 2021-06-17 | IR_ITS ---
APPROVED REPORT Patient Location: Inpatient Lead Ramp Agent: CATRACHITA Monge RT (R) PROCEDURES Selective coronary angiogram INDICATION Sudden onset dyspnea chest discomfort following recent complex stenting Informed consent was obtained prior to the procedure. COMPLICATIONS None Estimated Blood Loss: Less than 10 mls TECHNIQUE One percent lidocaine was used to anesthetize the right groin. The right femoral artery was accessed via the Seldinger technique. A 4-Tunisian sheath was placed in the right femoral artery. The JL-4 and JR-4 catheter was also used to perform left heart catheterization left ventriculogram and selective coronary angiogram. At the end of the procedure the patient was transferred to the post-op holding area in stable condition for arterial sheath removal. ANGIOGRAPHIC RESULTS The coronary arteries looked unchanged compared to the diagnostic and interventional angiogram from this morning. The left main artery LAD and circumflex artery all have accompanying DAWIT-3 flow IMPRESSION Adequate coronary revascularization PLAN 1. Patient's symptoms almost certainly stem from Brilinta. Patient experienced dyspnea which can occur up to 15% of patients on this drug. Because of patient's pre-existing lung disease and associated symptoms Brilinta will be it switched to Plavix 75 mg daily 2. Continue supportive care 3. Treatment of underlying lung disease Electronically signed by : Eugene Mackay MD 06/17/2021 15:50:48
--- NOTE | 2021-06-17 | IR_ITS ---
APPROVED REPORT Patient Location: Inpatient Waste Baler: CATRACHITA Davenport RT (R) PROCEDURES Left heart catheterization Left ventriculogram Selective coronary angiogram Selective engagement of the saphenous vein graft to the right coronary Drug-eluting stent deployment to the proximal and mid left anterior descending artery Drug-eluting stent deployment to the mid to distal left main artery INDICATION Coronary artery disease, History of coronary bypass surgery, Known loss of the GALLO graft to the LAD, Acute coronary syndrome with unstable angina Informed consent was obtained prior to the procedure. COMPLICATIONS NONE Estimated Blood Loss: LESS THAN 10 ML TECHNIQUE One percent lidocaine used to anesthetize the right anterior aspect of the wrist. The right radial artery was accessed via the Seldinger technique. A 6 Bulgarian sheath was placed in the right radial artery. 2.5 mg of verapamil, 800 mcg of nitroglycerin, 1mg Lidocaine and 5000 U Heparin were given through the arterial sheath. The papa catheter was also used to perform left heart catheterization, left ventriculogram, selective engagement of the saphenous vein graft to the right coronary artery as well as selective coronary angiogram. At the end the diagnostic angiogram therapeutic heparin was administered giving a therapeutic ACT and the guide catheter was placed in the left main artery followed by 2 wires one of the circumflex artery and one in the LAD. Predilatation was required using a 3 mm x 12 mm balloon. A guide liner was advanced which allowed a 3.5 x 30 mm resolute Pardeep stent to be deployed in the proximal LAD at 15 jim reducing the critical stenosis to 0%. There was still a significant stenosis proximal to this which extended into the left main artery and given the GALLO graft was down a 4 mm x 12 mm resolute [place] stent was placed in the mid left main artery extending into the ostium of the LAD and deployed at 20 jim. A 4 mm x 8 mm noncompliant balloon was then placed at the junction of the left main artery and the LAD and deployed at 24 jim to further post dilate. DAWIT-3 flow was present before and after the procedure. After achieving excellent angiographic results apparatus was removed the sheath was removed and hemostasis was achieved using TR banding patient was transferred to the postop holding in stable condition ANGIOGRAPHIC RESULTS The left main artery Has a distal 30% stenosis which extends into the ostium of the proximal LAD. The left anterior descending artery Has a proximal eccentric 80 to 90% stenosis followed by additional 40 and 50% stenosis. There is an additional stenosis in the mid LAD of approximately 40 to 50% concentric stenosis The circumflex artery There is a small nondominant vessel and has a proximal concentric 70 to 80% stenosis and a 2 mm segment proximal to 2 small to moderate-sized obtuse marginal arteries The right coronary artery Dominant known to be proximally occluded The RIOS ventriculogram reveals Preserved at 55% The left ventricular end-diastolic pressure 20 mmHg GALLO graft was not engaged but was noted to be occluded following a July 08, 2015 heart cath Saphenous vein graft to right coronary artery is a large widely patent graft IMPRESSION Coronary artery disease as described above Successful stenting of the left main artery extending into the proximal to mid LAD reducing mild/moderate severe and critical disease to 0% with 2 contiguous drug-eluting stents PLAN 1. Dual antiplatelet therapy 2. LDL less than 55 to be achieved with high intensity statin 3. Cardiac rehabilitation 4. Avoidance of tobacco products 5. Risk factor modification Electronically signed by : Phu
[2021-06-17 00:06] LABS: Coronavirus 19, PCR Not Detected (NotDetected); Influenza A, PCR Not Detected (NotDetected); Influenza B, PCR Not Detected (NotDetected)
[2021-06-17 00:06] LABS: NT Pro Brain Natriuretic Pep. 46.9 pg/mL (0-125)
[2021-06-17 00:35] LABS: Prostate Specific Ag, Diagnost 1.75 ng/ml (0.0-4.0)
[2021-06-17 01:01] LABS: Troponin I 0.02 ng/ml (0.00-0.034)
--- NOTE | 2021-06-17 01:12 | PC.NURSE ---
pt arrived to the floor at this time via wheelchair per ER staff
--- NOTE | 2021-06-17 03:14 | PC.NURSE ---
Admitted patient to floor. Patient npo for cardio consult, patient received surgical bath and shaved. No chest pain or sob noted at this time. Patient resting call light in reach.
[2021-06-17 04:01] LABS: Basophils # 0.2 K/mm3 (0-0.2); Basophils % 1.9 % (0.1-2.0); Eosinophils # 0.3 K/mm3 (0.0-0.4); Eosinophils % 3.4 % (0.1-12.0); Hematocrit 44.2 % (42.0-52.0); Hemoglobin 14.6 g/dL (14.1-18.0); Lymphocytes # 1.8 K/mm3 (0.7-4.5); Lymphocytes % 21.3 % (10-50); Mean Corpuscular Hemoglobin 30.3 pg (27.0-31.2); Mean Corpuscular Volume 91.6 fl (80-94); Mean Platelet Volume 8.3 fl (7.4-10.4); Monocytes # 0.5 K/mm3 (0.1-1.0); Monocytes % 5.8 % (1.7-9.3); Neutrophils # 5.8 K/mm3 (1.8-7.8); Neutrophils % 67.6 % (37.0-80.0); Platelet Count 252 K/mm3 (142-424); Red Blood Count 4.82 M/mm3 (4.60-6.20); Red Cell Distribution Width 14.2 % (11.5-17.5); White Blood Count 8.6 K/mm3 (4.8-10.8)
[2021-06-17 04:06] LABS: Chloride 109 mmol/L (98-107); Potassium 3.8 mmoL/L (3.5-5.1); Sodium 138 mmol/L (136-145)
[2021-06-17 04:09] LABS: Anion Gap 8.8 mEq/L (5-15); Blood Urea Nitrogen 15 mg/dl (9-20); Calcium 8.4 mg/dl (8.4-10.2); Carbon Dioxide 24 mmol/L (22.0-30.0); Creatinine Clearance Estimated 59 mL/min (50-200); Estimated Glomerular Filt Rate 52 ml/min (>60); GFR (African American) 63 ML/MIN (>60); Glucose 100 mg/dl (74-100); Magnesium 1.7 mg/dl (1.6-2.3)
[2021-06-17 04:32] LABS: Troponin I < 0.01 ng/ml (0.00-0.034)
--- NOTE | 2021-06-17 08:02 | HMH.PHAVTE ---
[facility] Pharmacy VTE Monitoring - Patient Demographics Admission date: 06/17/21 Report Date: 06/17/21 Time: 08:03 Allergies/Adverse Reactions: Patient Allergies ibuprofen [IBUPROFEN] Allergy (Unknown, Verified 05/04/21 11:21) Unknown allergy reaction Penicillins [PENICILLINS] Allergy (Unknown, Verified 05/04/21 11:21) Unknown allergy reaction Height: 1.78 m Weight: 76.067 kg Patient Problems: Current Active Problems Acute dyspnea (Acute) LAYLA (acute kidney injury) (Acute) COPD (chronic obstructive pulmonary disease) (Chronic) Hx of CABG (Chronic) - VTE Risk Labs: VTE Related Lab Results Hgb 14.6 g/dL (14.1-18.0) 06/17/21 03:50 Hct 44.2 % (42.0-52.0) 06/17/21 03:50 Plt Count 252 K/mm3 (142-424) 06/17/21 03:50 BUN 15 mg/dl (9-20) 06/17/21 03:50 Creatinine 1.40 mg/dl (0.66-1.25) H D 06/17/21 03:50 Estimated Creat Clear 59 mL/min (50-200) 06/17/21 03:50 Was VTE Risk Assessment Performed: Yes VTE Score: 3 VTE Risk Level: Low Risk Clinical Trial Participant: No - Prophylaxis VTE Prophylaxis Ordered?: Yes Types of VTE Prophylaxis: TEDS Knee High
--- NOTE | 2021-06-17 08:08 | HMH.PHAINT ---
home medication list verified using list from [facility]
--- NOTE | 2021-06-17 09:26 | HMH.CNCARD ---
History of Present Illness Consult date: 06/17/21 Requesting physician: Cortez Martinez Consult reason: shortness of breath Chief complaint: PRUITT, fatigue Additional Medical History:: 1. Coronary artery disease A. Status post coronary artery bypass grafting, approximately 2009, [place], [place] 2. Continued tobacco use 1 to 2 packs/day 3. History of heavy alcohol use, discontinued 15 years ago (2006) 4. GERD 5. Hypertension 6. Hyperlipidemia 7. carotid artery stenosis, less than 20% 11/25/2019 History of present illness: 61-year-old white male presented to the emergency department for evaluation of exertional fatigue with bandlike discomfort across the upper abdomen on and description of legs feeling weak when walking 25 to 30 feet. Symptoms have been present for the last 2 weeks and resolve with rest. He denies any recent fever, chills, nausea, vomiting or diarrhea. EKG is sinus rhythm with incomplete right bundle branch block and no acute ST segment changes. Troponins have returned normal x3. Cardiology consulted for evaluation. [facility] History Medical History: Reports:: Chronic Obstructive Pulmonary Disease (COPD), Coronary Artery Disease, Depression, Gastroesophageal Reflux Disease(GERD), Hyperlipidemia, Hypertension, Myocardial Infarction Denies:: Cancer, Diabetes Mellitus Type 1, Diabetes Mellitus Type 2, Internal Pacemaker, MRSA, Seizures *Have you ever received a pneumonia vaccine?: Yes *Have you received a flu vaccine this season?: Yes Other Medical History: Reports: Arthritis, Other. Denies: Blood Transfusion Reaction Laterality Cases: Right: Total Hip Replacement Other Surgeries: Yes: CABG, Cardiac Catheterization, Cardiac Surgery, Colonoscopy, Hernia Repair, Other. No: Pacemaker Amputation: No Fractures: No - *Social History Smoking Status: Current every day smoker Tobacco Type: cigarettes # Packs/Day (cigarettes): 1 #Yrs smoked (if former smoker): 40 Alcohol Intake: former Alcohol Intake Frequency:: 3 or more drinks per day Substance Use Type: denies use *Occupational Status:: disabled Housing: house Household Members: significant other, children *Travel in the last 8 weeks: None - Psychiatric History Pschychiatric History:: Reports:: Depression Family Hx:: Heart Attack Meds Home Medications Medication Instructions Recorded Confirmed Type albuterol sulfate 90 mcg/actuation 2 puff INHALATION Q4HP PRN #8.5 g 03/14/21 06/16/21 Rx aerosol inhaler Amlodipine Besylate/Benazepril 1 cap PO DAILY 06/16/21 06/16/21 History [Amlodipine-Benazepril 5-10 mg] Aspirin [Aspirin EC 325mg Tab] 325 mg PO DAILY 06/16/21 06/16/21 History Atorvastatin Calcium [Lipitor 80mg 80 mg PO HS 06/16/21 06/17/21 History Tablet*] Gabapentin 600 mg PO TID 06/16/21 06/16/21 History Nebivolol HCl [Bystolic] 10 mg PO DAILY 06/16/21 06/16/21 History Nitroglycerin 0.4 mg PO DIRECTED 06/16/21 06/17/21 History Tiotropium Br/Olodaterol HCl 2 puff IH DAILY 06/16/21 06/16/21 History [Stiolto Respimat] Trazodone HCl 150 mg PO HSP PRN 06/16/21 06/17/21 History pantoprazole 40 mg tablet,delayed 40 mg PO BID #90 tab 06/17/21 Rx release Allergies Allergy/AdvReac Type Severity Reaction Status Date / Time ibuprofen [IBUPROFEN] Allergy Unknown Unknown Verified 05/04/21 11:21 allergy reaction Penicillins [PENICILLINS] Allergy Unknown Unknown Verified 05/04/21 11:21 allergy reaction Exam Vital signs and Labs for Last 24 Hours: Temp Pulse Resp BP Pulse Ox 97.9 F 72 20 101/54 L 95 06/17/21 04:00 06/17/21 04:00 06/17/21 04:00 06/17/21 04:00 06/17/21 04:00 Laboratory Results - last 24 hr 06/16/21 20:50: Urine Color Yellow, Urine Appearance Clear, Urine pH 5.0, Ur Specific [place] >= 1.030, Urine Protein Trace, Urine Glucose (UA) Negative, Urine Ketones Negative, Urine Blood Negative, Urine Nitrate Negative, Urine Bilirubin 1+ A, Urine Urobilinogen 0.2, Ur
--- NOTE | 2021-06-17 10:44 | PC.NURSE ---
PT went down for cath and left floor
[2021-06-17 12:00] LABS: CATHL Activated Clotting Time 267 SEC (74-125)
[2021-06-17 12:01] LABS: CATHL Activated Clotting Time > 400 SEC (74-125)
--- NOTE | 2021-06-17 12:09 | PC.NURSE ---
patient family came out stating she needed someone to check on patient. upon assessment patient complaining of chest pressure in the center of chest. patient educated on possible causes and ekg obtained and taken downstairs to be read. did notify cynthia cleaning about the complaint and he stated it was probably where they had to stretch the artery during stent placement. stated he would put an order in for ranexa 500mg po. stated he would try to come up and speak with family.
--- NOTE | 2021-06-17 12:43 | PC.NURSE ---
Received report from Peyton LONG geophysical laboratory director
--- NOTE | 2021-06-17 12:45 | ECG_ITS ---
APPROVED REPORT Exam: Resting ECG HR:68 bpm ECG Measurements Heart Rate 68 AXES ID 174 P 17 QRSd 136 QRS 1 QT 415 T 74 QTc 432 Conclusion SINUS RHYTHM RIGHT BUNDLE BRANCH BLOCK MARKED T-WAVE ABNORMALITY - unchanged since initial tracing ABNORMAL ECG UNCONFIRMED REPORT Electronically signed by : Terry Perez MD 06/19/2021 09:03:35
--- NOTE | 2021-06-17 13:48 | PC.NURSE ---
late entry, rounded on patient during morning rounds. stated he had no concerns or questions about meds or plan of care. was resting in bed no needs voiced during that time.
--- NOTE | 2021-06-17 14:56 | ECG_ITS ---
APPROVED REPORT Exam: Resting ECG HR:68 bpm ECG Measurements Heart Rate 68 AXES TX 174 P 17 QRSd 136 QRS 1 QT 415 T 74 QTc 432 Conclusion SINUS RHYTHM RIGHT BUNDLE BRANCH BLOCK [120+ ms QRS DURATION, UPRIGHT V1, 40+ ms S IN I/aVL/V4/V5/V6] MARKED T-WAVE ABNORMALITY, CONSIDER ANTERIOR ISCHEMIA [-0.5+ mV T-WAVE IN V3/V4] ABNORMAL ECG UNCONFIRMED REPORT Electronically signed by : Terry Perez MD 06/18/2021 07:52:21
--- NOTE | 2021-06-17 14:59 | PC.NURSE ---
[phone] call received from jacquie wright pa-c, dr. maldonado requests to take pt to label sewer. [facility] automotive service consultant staff notified [phone] lillie garland, rn [phone] brent yanez, rn 1456 brent gardiner, radiology. all staff notified and en route for case
--- NOTE | 2021-06-17 15:53 | HMH.HP ---
*Admission Date: 06/17/21 *Chief complaint: weakness *History of present illness: 61-year-old white male presented to the emergency department for evaluation of fatigue with exertion, bandlike discomfort across the upper abdomen on and description of legs feeling weak when walking 25 to 30 feet with soa. Symptoms have been present for the last 2 weeks and resolve with rest. He denies any recent fever, chills, nausea, vomiting or diarrhea. EKG is sinus rhythm with incomplete right bundle branch block and no acute ST segment changes. Troponins have returned normal x3. Patient admitted for further work up and Cardiology consult. [facility] History I have reviewed the patient's past medical history: Yes Medical History: Reports:: Chronic Obstructive Pulmonary Disease (COPD), Coronary Artery Disease, Depression, Gastroesophageal Reflux Disease(GERD), Hyperlipidemia, Hypertension, Myocardial Infarction Denies:: Cancer, Diabetes Mellitus Type 1, Diabetes Mellitus Type 2, Internal Pacemaker, MRSA, Seizures *Have you ever received a pneumonia vaccine?: Yes *Have you received a flu vaccine this season?: Yes Other Medical History: Reports: Arthritis, Other. Denies: Blood Transfusion Reaction Laterality Cases: Right: Total Hip Replacement Other Surgeries: Yes: CABG, Cardiac Catheterization, Cardiac Surgery, Colonoscopy, Hernia Repair, Other. No: Pacemaker Amputation: No Fractures: No - *Social History Smoking Status: Current every day smoker Tobacco Type: cigarettes # Packs/Day (cigarettes): 1 #Yrs smoked (if former smoker): 40 Alcohol Intake: former Alcohol Intake Frequency:: 3 or more drinks per day Substance Use Type: denies use *Occupational Status:: disabled Housing: house Household Members: significant other, children *Travel in the last 8 weeks: None - Psychiatric History Pschychiatric History:: Reports:: Depression Family Hx:: Heart Attack Review of Systems - Review of Systems Review of systems:: pertinent systems reviewed and negative unless documented below - Constitutional Reports fatigue, Reports malaise, Reports weakness, Denies chills - Eyes Denies change in vision - ENT Denies bleeding gums - *Cardiovascular Reports chest pain with activity, Reports leg pain with activity, Denies chest pain at rest - *Respiratory Reports shortness of breath with activity, Denies chest congestion - *Gastrointestinal Reports abdominal pain - *Genitourinary Denies difficulty urinating - *Musculoskeletal Denies joint pain - Integumentary/Breasts Denies change in hair - *Neurologic Denies headache(s), Denies seizure-like activity - Endocrine Denies flushing - Hematologic/Lymphatic Denies enlarged lymph nodes - Allergic/Immunologic Denies lip swelling Meds Home Medications Medication Instructions Recorded Confirmed Type albuterol sulfate 90 mcg/actuation 2 puff INHALATION Q4HP PRN #8.5 g 03/14/21 06/16/21 Rx aerosol inhaler Amlodipine Besylate/Benazepril 1 cap PO DAILY 06/16/21 06/16/21 History [Amlodipine-Benazepril 5-10 mg] Aspirin [Aspirin EC 325mg Tab] 325 mg PO DAILY 06/16/21 06/16/21 History Atorvastatin Calcium [Lipitor 80mg 80 mg PO HS 06/16/21 06/17/21 History Tablet*] Gabapentin 600 mg PO TID 06/16/21 06/16/21 History Nebivolol HCl [Bystolic] 10 mg PO DAILY 06/16/21 06/16/21 History Nitroglycerin 0.4 mg PO DIRECTED 06/16/21 06/17/21 History Tiotropium Br/Olodaterol HCl 2 puff IH DAILY 06/16/21 06/16/21 History [Stiolto Respimat] Trazodone HCl 150 mg PO HSP PRN 06/16/21 06/17/21 History pantoprazole 40 mg tablet,delayed 40 mg PO BID #90 tab 06/17/21 Rx release Allergies Allergy/AdvReac Type Severity Reaction Status Date / Time ibuprofen [IBUPROFEN] Allergy Unknown Unknown Verified 05/04/21 11:21 allergy reaction Penicillins [PENICILLINS] Allergy Unknown Unknown Verified 05/04/21 11:21 allergy reaction Exam Vital signs and Labs for Last 24
--- NOTE | 2021-06-17 16:10 | PC.NURSE ---
Received verbal report in person
--- NOTE | 2021-06-17 17:36 | PC.NURSE ---
Called plastics sheet finishing press operator to page Dr. Mann who is contact lens polisher for dr cordova. Waiting for call back
--- NOTE | 2021-06-17 20:00 | PC.NURSE ---
Pt had a very eventful day. He was very anxious about going down for a heart cath today since is was sunday the , and 2 other family members have passed recently. He says they go in three's and he may be the third. They took him down for the heart cath. He had 2 stents placed in the proximal LAD. He comes back up and stated that he is having chest pain and being unable to catch his breath. I placed him on 2L NC. I took an EKG and got it read by ER DOC. Conrado Omer was informed. He had me give nitro PO, and 2mg of morphine. Took another EKG and they were sent to [facility]. I then did nitro paste. He then was taken back to heart cath this time they went in the right femoral artery. Pt came back up to the floor. He has been stating he is unable to get all the urine out that he needs to. His abdomen he states is hurting he did get around 500mls out via urinal on my shift. He had to lay flat till 1800. Then I could raise him 15 degree every 15 mins. At 1900 he would be able to ambulate around the room once he sat on the side of the bed to make sure he could handle it. Pt has been having a better time he had one episode of needing a breathing treatment.
[2021-06-18] VITALS (12 sets, daily range): BP systolic 119–143; BP diastolic 76–92; PULSE 70–100; RESP 18–24; TEMP 36.3–37.1; O2SAT 93–99; BMI 24.9
--- NOTE | 2021-06-18 05:01 | PC.NURSE ---
Patient had uneventful night. Patient rested well. No complaints of chest pain this shift. Patient now on RA sating in high the 90%. Patient does become sob during activities. Patient has voided throughout shift however he states it's hard to push it (urine) out sometimes . Enlarge prostate noted in chart. Both rt radial and rt femoral cath site dressings are CDI absent of blood. Patient awaiting Pulmonary consult r/t SOB.
[2021-06-18 08:22] LABS: Basophils # 0.1 K/mm3 (0-0.2); Basophils % 1.1 % (0.1-2.0); Eosinophils # 0.2 K/mm3 (0.0-0.4); Eosinophils % 2.7 % (0.1-12.0); Hematocrit 43.5 % (42.0-52.0); Hemoglobin 14.4 g/dL (14.1-18.0); Lymphocytes # 1.3 K/mm3 (0.7-4.5); Lymphocytes % 16.3 % (10-50); Mean Corpuscular HGB Conc 33.2 g/dL (31.8-35.4); Mean Corpuscular Hemoglobin 30.1 pg (27.0-31.2); Mean Corpuscular Volume 90.6 fl (80-94); Mean Platelet Volume 8.1 fl (7.4-10.4); Monocytes # 0.5 K/mm3 (0.1-1.0); Monocytes % 6.9 % (1.7-9.3); Neutrophils # 5.7 K/mm3 (1.8-7.8); Neutrophils % 72.9 % (37.0-80.0); Platelet Count 252 K/mm3 (142-424); Red Cell Distribution Width 14.1 % (11.5-17.5); White Blood Count 7.8 K/mm3 (4.8-10.8)
[2021-06-18 08:29] LABS: Anion Gap 11.8 mEq/L (5-15); Blood Urea Nitrogen 14 mg/dl (9-20); Calcium 8.5 mg/dl (8.4-10.2); Carbon Dioxide 26 mmol/L (22.0-30.0); Chloride 104 mmol/L (98-107); Creatinine Clearance Estimated 88 mL/min (50-200); Estimated Glomerular Filt Rate 76 ml/min (>60); GFR (African American) 92 ML/MIN (>60); Glucose 80 mg/dl (74-100); Potassium 3.8 mmoL/L (3.5-5.1); Sodium 138 mmol/L (136-145)
--- NOTE | 2021-06-18 10:57 | HMH.ACPN2 ---
Internal Medicine - PN: Subj *Date: 06/18/21 *Time: 10:57 Interval history: Cardiology notes are reviewed. Is post deployment of stent in the left main. Patient's postoperative course is marked by apnea. He relays dyspnea with exertion to the bathroom. No ischemic chest pain or squeezing pressure Patient has a longstanding history of COPD and tobacco. Has been smoking since the age of 13. His lungs demonstrate diffuse scattered expiratory wheezes. Patient is planing of fullness in the pubic region. Is having difficulty voiding, only passing small amounts. Known to have history of enlarged prostate Patient's sister is in the room at the time of exam Exam Vital signs and Labs for Last 24 Hours: Temp Pulse Resp BP Pulse Ox 97.4 F L 72 22 139/92 H 94 L 06/18/21 08:00 06/18/21 08:00 06/18/21 08:00 06/18/21 08:00 06/18/21 08:00 Laboratory Results - last 24 hr 06/17/21 11:07: Activated Clotting Time > 400 H* 06/17/21 11:28: Activated Clotting Time 267 H* D 06/18/21 06:26: WBC 7.8, RBC 4.80, Hgb 14.4, Hct 43.5, MCV 90.6, MCH 30.1, MCHC 33.2, RDW 14.1, Plt Count 252, MPV 8.1, Neut % (Auto) 72.9, Lymph % (Auto) 16.3, [place] % (Auto) 6.9, Eos % (Auto) 2.7, Baso % (Auto) 1.1, Neut # (Auto) 5.7, Lymph # (Auto) 1.3, [place] # (Auto) 0.5, Eos # (Auto) 0.2, Baso # (Auto) 0.1 06/18/21 06:26: Sodium 138, Potassium 3.8, Chloride 104, Carbon Dioxide 26, Anion Gap 11.8, BUN 14, Creatinine 1.00 D, Estimated Creat Clear 88, Estimated GFR 76, Est GFR ( Amer) 92 D, Glucose 80, Calcium 8.5 I & O for Last 24 hours: Intake & Output 06/15/21 06/16/21 06/17/21 06/18/21 23:59 23:59 23:59 23:59 Intake Total 1120 / 1120 Output Total 300 / 300 100 / 100 Balance 820 / 820 -100 / -100 Weight 163 lb 167 lb 10.937 oz 174 lb 2 oz - Constitutional no acute distress, cooperative - *Routine HEENT Exam Head: Present: normocephalic Eye: Present: EOMI, PERRL ENT: Present: mucous membranes moist - *Routine Neck Exam Present: supple. Absent: lymphadenopathy - *Routine Respiratory Exam Present: wheezes, diminished air movement - *Routine Cardiovascular Exam Present: RRR - *Routine Abdominal Exam Present: soft, normoactive bowel sounds. Absent: tenderness - *Routine Extremities Exam Absent: cyanosis, clubbing, edema - *Routine Skin Exam Present: warm. Absent: rash - *Routine Neurological Exam Present: alert, oriented X3 Assessment and Plan (1) Angina pectoris without myocardial infarction Status: Acute Category: Medical Code(s): I20.9 - Angina pectoris, unspecified (2) LAYLA (acute kidney injury) Status: Acute Category: Medical Code(s): N17.9 - Acute kidney failure, unspecified (3) Acute dyspnea Status: Acute Category: Medical Code(s): R06.00 - Dyspnea, unspecified (4) COPD (chronic obstructive pulmonary disease) Status: Chronic Qualifiers: COPD type: unspecified COPD Qualified Code(s): J44.9 - Chronic obstructive pulmonary disease, unspecified Category: Medical Code(s): J44.9 - Chronic obstructive pulmonary disease, unspecified (5) Hx of CABG Status: Chronic Category: Surgical Code(s): Z95.1 - Presence of aortocoronary bypass graft (6) CAD (coronary artery disease) Status: Chronic Qualifiers: Coronary Disease-Associated Artery/Lesion type: bypass graft [place] vs. transplanted heart: [place] heart Associated angina: with other forms of angina Qualified Code(s): I25.708 - Atherosclerosis of coronary artery bypass graft(s), unspecified, with other forms of angina pectoris Category: Medical Code(s): I25.10 - Atherosclerotic heart disease of [place] coronary artery without angina pectoris (7) HLD (hyperlipidemia) Status: Chronic Qualifiers: Hyperlipidemia type: unspecified Qualified Code(s): E78.5 - Hyperlipidemia, unspecified Category: Medical Code(s): E78.5 - Hyperlipidemia, unspecified (8) HTN (hypertension) Statu
--- NOTE | 2021-06-18 14:27 | PC.NURSE ---
Patient complained of burning while urinating and has multiple and frequent trips to use bathroom. Patient still states he feels as if he still needs to urinate. 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 Dr. Crouch made aware and stated we could anchor a crow if patient is retaining urine and feeling uncomfortable.
[2021-06-18 15:51] LABS: Microscopic, Urine URINE MICROSCOPIC (MICROSCOPIC)
[2021-06-18 15:56] LABS: Appearance,Urine CLEAR (Clear); Bilirubin,Urine Negative (Negative); Blood, Urine Negative (Negative); Color,Urine YELLOW (Yellow); Glucose,Urine (UA) Negative (Negative); Ketones,Urine 2+ (Negative); Leukocyte Esterase,Urine Negative (Negative); Nitrate,Urine Negative (Negative); PH,Urine 7.5 (5.0-8.5); Protein,Urine Negative (Negative); Urobilinogen,Urine 0.2 EU/dl (0.2)
[2021-06-18 16:05] LABS: Squamous Epithelial Cell,Urine Occasional #/hpf (0-5); WBC,Urine Occasional #/hpf (0-3)
[2021-06-19] VITALS: BP 108/73; PULSE 90; RESP 17; TEMP 37.1; O2SAT 94
[2021-06-19 04:00] VITALS: BP 109/73; PULSE 100; PULSE 92; RESP 17; TEMP 36.4; O2SAT 95
--- NOTE | 2021-06-19 05:02 | PC.NURSE ---
No acute changes. Pt continues to urinate small amounts 100-150 ml every 2-3 hours. Pt admits bladder pressure has gotten somewhat better t/o night. Pt has had a total of 400ml out thus far. No other complaints voiced to staff. Call light within reach.
[2021-06-19 05:09] VITALS: BMI 23.4
[2021-06-19 06:10] VITALS: PULSE 83; PULSE 91; O2SAT 96
[2021-06-19 08:00] VITALS: BP 103/69; PULSE 90; PULSE 98; RESP 18; TEMP 36.4; O2SAT 95
[2021-06-19 12:00] VITALS: BP 119/79; PULSE 87; PULSE 95; RESP 20; TEMP 36.4; O2SAT 92
[2021-06-19 12:30] VITALS: PULSE 84; PULSE 87; O2SAT 98
--- NOTE | 2021-06-19 13:00 | HMH.DCSUM ---
General - General Admission date:: 06/17/21 Discharge date: 06/19/21 HPI HPI: 61-year-old white male presented to the emergency department for evaluation of fatigue with exertion, bandlike discomfort across the upper abdomen on and description of legs feeling weak when walking 25 to 30 feet with soa. Symptoms have been present for the last 2 weeks and resolve with rest. He denies any recent fever, chills, nausea, vomiting or diarrhea. EKG is sinus rhythm with incomplete right bundle branch block and no acute ST segment changes. Troponins have returned normal x3. Patient admitted for further work up and Cardiology consult. Hospital Course Hospital Course: The patient was admitted to our service, seen in consultation with cardiology. Taken to the [facility] and a stent was deployed in his left main. ANGIOGRAPHIC RESULTS The left main artery Has a distal 30% stenosis which extends into the ostium of the proximal LAD. The left anterior descending artery Has a proximal eccentric 80 to 90% stenosis followed by additional 40 and 50% stenosis. There is an additional stenosis in the mid LAD of approximately 40 to 50% concentric stenosis The circumflex artery There is a small nondominant vessel and has a proximal concentric 70 to 80% stenosis and a 2 mm segment proximal to 2 small to moderate-sized obtuse marginal arteries The right coronary artery Dominant known to be proximally occluded The RIOS ventriculogram reveals Preserved at 55% The left ventricular end-diastolic pressure 20 mmHg GALLO graft was not engaged but was noted to be occluded following a July 08, 2015 heart cath Saphenous vein graft to right coronary artery is a large widely patent graft IMPRESSION Coronary artery disease as described above Successful stenting of the left main artery extending into the proximal to mid LAD reducing mild/moderate severe and critical disease to 0% with 2 contiguous drug-eluting stents PLAN 1. Dual antiplatelet therapy 2. LDL less than 55 to be achieved with high intensity statin 3. Cardiac rehabilitation 4. Avoidance of tobacco products 5. Risk factor modification Patient showed signs of dyspnea following his return from the [facility] and was taken back a second time to investigate for restenosis. On subsequent reexamination his coronaries looked unchanged and dyspnea was felt to be caused by Brilinta and pre-existing lung disease. She has a history of COPD, long-term tobacco use, had diffuse wheezing. He responded well to nebulized bronchodilators and solumedrol. Patient had some urinary hesitancy. Responded well to flomax. On the day of his discharge the patient felt improved on all fronts. He still had some diffuse wheezing which was improved. We will make arrangements for short interval follow-up after discharge Objective Vital signs: Temp Pulse Resp BP Pulse Ox 97.5 F L 87 20 119/79 98 06/19/21 12:00 06/19/21 12:30 06/19/21 12:00 06/19/21 12:00 06/19/21 12:30 no acute distress - *Routine HEENT Exam Head: Present: normocephalic Eye: Present: EOMI, PERRL ENT: Present: mucous membranes moist - *Routine Neck Exam Present: supple - *Routine Respiratory Exam Present: wheezes, diminished air movement. Absent: respiratory distress - *Routine Cardiovascular Exam Present: RRR - *Routine Abdominal Exam Present: soft, normoactive bowel sounds. Absent: tenderness - *Routine Extremities Exam Absent: cyanosis, clubbing, edema - *Routine Skin Exam Present: warm. Absent: rash Results Labs on day of discharge: Labs from last 24 hours 06/18/21 15:42 Urine Color Yellow Urine Appearance Clear Urine pH 7.5 Ur Specific [place] 1.010 Urine Protein Negative Urine Glucose (UA) Negative Urine Ketones 2+ Urine Blood Negative Urine Nitrate Negative Urine Bilirubin Negative Urine Urobilinogen 0.2 Ur Leukocyte Esterase Negative Urine RBC None Urine WBC Oc
--- NOTE | 2021-06-19 13:17 | HMH.PHACLD ---
Damion Guerrier has received discharge medication counseling on the following medications: ASPIRIN PLAVIX AMLODIPINE/BENAZEPRIL ATORVASTATIN NEBIVOLOL PATIENT VERBALIZED UNDERSTANDING AND HAD NO QUESTIONS AT THIS TIME. NEW PRESCRIPTIONS SENT TO [facility] [place]. -JAVAN MCKAY, BOOKERD
--- NOTE | 2021-06-20 14:43 | CARE MANAGER ---
Attempted to call patient for post-discharge interview, phone states a voicemail box has not been set up on this person
== END 2021-06-19 14:16 | disposition home or self-care (01) ==
LOC: ER 23:55 → 2ND 06-17 01:00
PROVIDERS: Internal Medicine; Internal Medicine Adolescent Medicine; Admitting Provider Emergency Medicine; Emergency Provider Emergency Medicine; PCP Nurse Practitioner Family; Visit Provider Family Medicine
DX: N17.9 Acute kidney failure, unspecified (principal); Z20.822 Contact with and (suspected) exposure to COVID-19; I25.110 Atherosclerotic heart disease of native coronary artery with unstable angina pectoris; I10 Essential (primary) hypertension; K21.9 Gastro-esophageal reflux disease without esophagitis; I25.2 Old myocardial infarction; E78.5 Hyperlipidemia, unspecified; Z95.1 Presence of aortocoronary bypass graft; F17.210 Nicotine dependence, cigarettes, uncomplicated; I25.710 Atherosclerosis of autologous vein coronary artery bypass graft(s) with unstable angina pectoris; N39.0 Urinary tract infection, site not specified; R39.12 Poor urinary stream
CPT/HCPCS: G0378; 36415; 71046; 74177; 80048; 80053; 81001; 82150; 83605; 83690; 83735; 83880; 84145; 84153; 84484; 85025; 85347; 85651; 86140; 87040; 87086; 92928; 93005; 93459; 94640; 96375; 99152; 99153; 99285; C1725; C1769; C1874; C1876; C9600; C9803; J1644; Q9967; U0003; U0005

== ENCOUNTER → 2021-06-27 14:26 | Outpatient (CLI) | payer MEDICARE, MEDICAID, SELFPAY ==
[2021-06-27 14:56] LABS: Basophils # 0.4 K/mm3 (0-0.2); Basophils % 2.5 % (0.1-2.0); Eosinophils % 0.3 % (0.1-12.0); Hematocrit 47.4 % (42.0-52.0); Hemoglobin 15.6 g/dL (14.1-18.0); Lymphocytes # 1.3 K/mm3 (0.7-4.5); Lymphocytes % 8.3 % (10-50); Mean Corpuscular HGB Conc 32.8 g/dL (31.8-35.4); Mean Corpuscular Hemoglobin 30.5 pg (27.0-31.2); Mean Corpuscular Volume 92.9 fl (80-94); Mean Platelet Volume 7.7 fl (7.4-10.4); Monocytes # 0.9 K/mm3 (0.1-1.0); Monocytes % 5.2 % (1.7-9.3); Neutrophils # 13.5 K/mm3 (1.8-7.8); Neutrophils % 83.7 % (37.0-80.0); Platelet Count 389 K/mm3 (142-424); Red Cell Distribution Width 14.3 % (11.5-17.5); White Blood Count 16.2 K/mm3 (4.8-10.8)
[2021-06-27 15:17] LABS: MANUAL DIFFERENTIAL MANUAL DIFFERENTIAL (MANUAL DIFF)
[2021-06-27 15:32] LABS: Chloride 100 mmol/L (98-107); Potassium 4.3 mmoL/L (3.5-5.1); Sodium 138 mmol/L (136-145)
[2021-06-27 15:34] LABS: Bilirubin,Unconjugated 0.2 mg/dL (0.0-1.1); Blood Urea Nitrogen 17 mg/dl (9-20); Estimated Glomerular Filt Rate 99 ml/min (>60); GFR (African American) 119 ML/MIN (>60)
[2021-06-27 15:35] LABS: Alanine Aminotransferase 55 U/L (12-78); Albumin Level 3.7 g/dl (3.5-5.0); Alkaline Phosphatase 78 U/L (38-126); Anion Gap 7.3 mEq/L (5-15); Aspartate Amino Transferase 53 U/L (17-59); Bilirubin,Direct 0.1 mg/dl (0.0-0.4); Bilirubin,Indirect 0.2 mg/dL (0.0-0.9); Bilirubin,Total 0.3 mg/dl (0.2-1.3); Calcium 9.3 mg/dl (8.4-10.2); Carbon Dioxide 35 mmol/L (22.0-30.0); Cholesterol 154 mg/dl (140-200); Glucose 109 mg/dl (74-100); Magnesium 1.7 mg/dl (1.6-2.3); Total Protein,Serum 6.2 g/dl (6.3-8.2); Triglycerides 135 mg/dl (30-150); VLDL Cholesterol 27 mg/dL (0-40)
[2021-06-27 15:36] LABS: Chol/HDL Ratio 2.6 (1-3.5); HDL Cholesterol 60 mg/dl (40-60)
[2021-06-27 15:47] LABS: Direct LDL Cholesterol 71.08 mg/dL (100-129)
[2021-06-27 15:51] LABS: Free T4 (Free Thyroxine) 1.42 ng/dl (0.78-2.19)
[2021-06-27 16:06] LABS: Thyroid Stimulating Hormone 1.94 uIU/mL (0.465-4.68)
[2021-06-27 18:25] LABS: Eosinophils % 1 % (0-3); Lymphocytes % 17 % (10-50); Monocytes % 3 % (2-9); Neutrophils % 79 % (42-76); Platelet Estimate Normal; RBC Morphology Normal; Total Cells Counted 100
== END ==
PROVIDERS: Visit Provider Nurse Practitioner
DX: E78.5 Hyperlipidemia, unspecified (principal); F17.200 Nicotine dependence, unspecified, uncomplicated; I10 Essential (primary) hypertension; I25.10 Atherosclerotic heart disease of native coronary artery without angina pectoris; J44.9 Chronic obstructive pulmonary disease, unspecified; Z95.1 Presence of aortocoronary bypass graft
CPT/HCPCS: 36415; 80048; 80061; 80076; 83735; 84439; 84443; 85007; 85025

== ENCOUNTER → 2021-07-06 11:17 | Outpatient (CLI) | payer MEDICARE, MEDICAID, SELFPAY ==
--- NOTE | 2021-07-06 11:21 | XR_ITS ---
FINAL REPORT CLINICAL HISTORY: SOA COMPARISON: June 16, 2021 FINDINGS: Two views of the chest were obtained. There are postoperative changes from median sternotomy. The heart size and pulmonary vascularity are within normal limits. The mediastinum is normal. There is mild bronchial wall thickening consistent with bronchitis, similar to the prior. There is no pneumothorax. The bony thorax is intact. IMPRESSION: Mild bronchitis, similar to the prior. Reviewed, Interpreted and Dictated by Claus Virk III, MD Transcribed by Christa Bauman [facility]. [facility]
== END ==
PROVIDERS: PCP Nurse Practitioner Family; Visit Provider Nurse Practitioner Family
DX: R06.02 Shortness of breath (principal)
CPT/HCPCS: 71046

== ENCOUNTER 2021-07-10 23:06 | Emergency (ER) | payer MEDICARE, MEDICAID, SELFPAY ==
--- NOTE | 2021-07-10 23:16 | ECG_ITS ---
APPROVED REPORT Exam: Resting ECG HR:107 bpm ECG Measurements Heart Rate 107 AXES WI 144 P 80 QRSd 132 QRS 57 QT 310 T 83 QTc 372 Conclusion SINUS TACHYCARDIA RIGHT BUNDLE BRANCH BLOCK [120+ ms QRS DURATION, UPRIGHT V1, 40+ ms S IN I/aVL/V4/V5/V6] ABNORMAL ECG UNCONFIRMED REPORT Electronically signed by : Terry Perez MD 07/12/2021 18:43:24
[2021-07-10 23:18] VITALS: BP 136/82; PULSE 107; RESP 18; TEMP 38.1; O2SAT 95; BMI 25.1
--- NOTE | 2021-07-10 23:31 | XR_ITS ---
PROCEDURE INFORMATION: Exam: XR Chest Exam date and time: 07/10/2021 11:46 PM Age: 61 years old Clinical indication: Cough and other: Congestion; Prior surgery; Surgery date: 6+ months; Surgery type: Open heart surgery 2009; Additional info: Cough/congestion TECHNIQUE: Imaging protocol: XR of the chest. Views: 2 views. Total images: 891 COMPARISON: CR XR CHEST 2V 07/06/2021 11:44 AM FINDINGS: Lungs: Patchy ground-glass pulmonary opacities are concerning for atypical infection, possibly mild changes of COVID-19. Pleural spaces: Unremarkable. No pleural effusion. No pneumothorax. Heart/Mediastinum: Unremarkable. No cardiomegaly. Bones/joints: Changes of sternotomy are noted. IMPRESSION: Patchy ground-glass pulmonary opacities are concerning for atypical infection, possibly mild changes of COVID-19.
[2021-07-10 23:43] VITALS: PULSE 104; PULSE 107
[2021-07-10 23:45] LABS: Coronavirus 19, PCR Not Detected (NotDetected); Influenza A, PCR Not Detected (NotDetected); Influenza B, PCR Not Detected (NotDetected)
[2021-07-10 23:46] LABS: Basophils # 0.3 K/mm3 (0-0.2); Basophils % 1.9 % (0.1-2.0); Eosinophils # 0.2 K/mm3 (0.0-0.4); Eosinophils % 1.6 % (0.1-12.0); Hematocrit 45.9 % (42.0-52.0); Hemoglobin 15.4 g/dL (14.1-18.0); Lymphocytes # 2.3 K/mm3 (0.7-4.5); Lymphocytes % 18.1 % (10-50); Mean Corpuscular HGB Conc 33.5 g/dL (31.8-35.4); Mean Corpuscular Hemoglobin 31.1 pg (27.0-31.2); Mean Corpuscular Volume 92.9 fl (80-94); Mean Platelet Volume 7.9 fl (7.4-10.4); Monocytes # 0.6 K/mm3 (0.1-1.0); Monocytes % 4.8 % (1.7-9.3); Neutrophils # 9.4 K/mm3 (1.8-7.8); Neutrophils % 73.5 % (37.0-80.0); Platelet Count 339 K/mm3 (142-424); Red Blood Count 4.94 M/mm3 (4.60-6.20); Red Cell Distribution Width 14.6 % (11.5-17.5); White Blood Count 12.8 K/mm3 (4.8-10.8)
[2021-07-10 23:51] LABS: Alanine Aminotransferase 104 U/L (12-78); Albumin Level 3.8 g/dl (3.5-5.0); Alkaline Phosphatase 94 U/L (38-126); Anion Gap 13.5 mEq/L (5-15); Aspartate Amino Transferase 40 U/L (17-59); Bilirubin,Indirect 0.9 mg/dL (0.0-0.9); Bilirubin,Total 0.9 mg/dl (0.2-1.3); Blood Urea Nitrogen 12 mg/dl (9-20); Carbon Dioxide 29 mmol/L (22.0-30.0); Chloride 96 mmol/L (98-107); Creatinine Clearance Estimated 73 mL/min (50-200); Estimated Glomerular Filt Rate 62 ml/min (>60); GFR (African American) 75 ML/MIN (>60); Glucose 144 mg/dl (74-100); Potassium 3.5 mmoL/L (3.5-5.1); Sodium 135 mmol/L (136-145); Total Protein,Serum 7.1 g/dl (6.3-8.2)
[2021-07-10 23:53] LABS: Lactic Acid 2.6 mmol/L (0.7-2.1)
[2021-07-11 00:04] LABS: NT Pro Brain Natriuretic Pep. 209 pg/mL (0-125); Troponin I < 0.01 ng/ml (0.00-0.034)
--- NOTE | 2021-07-11 01:23 | HMH.EDSOB ---
ED Disposition Clinical Impression: Acute exacerbation of chronic obstructive airways disease, Tobacco dependence syndrome Community acquired pneumonia Qualifiers: Laterality: unspecified laterality Qualified Code(s): J18.9 - Pneumonia, unspecified organism Disposition: Home, Self-Care Condition on Discharge: Good Instructions: DI for Chronic Obstructive Pulmonary Disease Additional Instructions: fluids and use meds and see pcp this week Prescriptions: Minocycline HCl [Minocycline HCl 100mg Tab*] 100 mg PO BID #20 tab Transmission Status: [facility]ending to [facility] predniSONE [Prednisone 20mg Tab] 20 mg PO BID #10 tab Transmission Status: Pending to [facility] Referrals: Loc Huffman APRN [Primary Care Provider] - - Critical Care Critical Care Time: No Attestation: On 07/10/21, the high probability of a clinically significant, sudden or life threatening deterioration of the following system(s) required my full and direct attention, intervention and personal management. The time I documented below is in addition to time spent performing reported procedures but includes the following listed in this critical care notation. Medical Decision Making - Medical Records Medical records reviewed: Yes: I reviewed the patient's medical records. - Jose Inquiry Pt receiving controlled substance: No Vital Signs: 07/10/21 23:18 07/10/21 23:43 Temperature 100.6 F H Temperature Source Oral Pulse Rate 104 H Pulse Rate [Right Brachial] 107 H Respiratory Rate 18 Blood Pressure [Right Arm] 136/82 Blood Pressure Mean [Right Arm] 100 Blood Pressure Source [Right Arm] Automatic Cuff Blood Pressure Position [Right Arm] Sitting 02 Sat by Pulse Oximetry 95 Oxygen Delivery Method Room Air - Lab Data Lab results reviewed: Yes: I reviewed the patient's lab results. Lab Results 07/10/21 23:29: WBC 12.8 H, RBC 4.94, Hgb 15.4, Hct 45.9, MCV 92.9, MCH 31.1, MCHC 33.5, RDW 14.6, Plt Count 339, MPV 7.9, Neut % (Auto) 73.5, Lymph % (Auto) 18.1, [place] % (Auto) 4.8, Eos % (Auto) 1.6, Baso % (Auto) 1.9, Neut # (Auto) 9.4 H, Lymph # (Auto) 2.3, [place] # (Auto) 0.6, Eos # (Auto) 0.2, Baso # (Auto) 0.3 H 07/10/21 23:29: Sodium 135 L, Potassium 3.5, Chloride 96 L, Carbon Dioxide 29, Anion Gap 13.5, BUN 12, Creatinine 1.20, Estimated Creat Clear 73, Estimated GFR 62, Est GFR ( Amer) 75, Glucose 144 H, Calcium 9.0, Total Bilirubin 0.9, Direct Bilirubin 0.0, Conjugated Bilirubin 0.0, Indirect Bilirubin 0.9, Unconjugated Bilirubin 1.0, AST 40, ALT 104 H, Alkaline Phosphatase 94, Troponin I < 0.01, NT-Pro-B Natriuret Pep 209 H, Total Protein 7.1, Albumin 3.8 07/10/21 23:29: Lactate 2.6 H 07/10/21 23:29: SARS-CoV-2 (PCR) Not detected, Influenza A Untype (PCR) Not detected, Influenza Type B (PCR) Not detected Result diagrams: 07/10/21 23:29 07/10/21 23:29 Orders (Tests/Meds): ED MEDICATIONS Generic Name Dose Route Start Last Admin Trade Name Freq PRN Reason Stop Dose Admin Sodium Chloride 3 ml 07/10/21 23:30 Sodium Chloride 3% 15ml [facility] 08/09/21 23:29 ONCE PRN INDUCE SPUTUM COLLECTION Discontinued Medications Generic Name Dose Route Start Last Admin Trade Name Freq PRN Reason Stop Dose Admin Albuterol/Ipratropium 3 ml 07/10/21 23:30 07/10/21 23:42 Ipratropium/Albuterol 3 Ml [facility] 07/10/21 23:31 3 ml ONCE ONE Administration Methylprednisolone Sodium Succinate 125 mg 07/10/21 23:33 07/10/21 23:35 Methylprednisolone Sod Succ 125mg Vial IV 07/10/21 23:34 125 mg ONCE ONE Administration ORDERS Category Date Time Status Troponin I Q3H Lab 07/11/21 02:30 Ordered Troponin I Q3H Lab 07/11/21 05:30 Ordered Blood Culture Stat Micro 07/10/21 23:29 Received Sputum Culture & Gram Stain Stat Micro 07/10/21 23:37 Results - Radiology Data #1 Image(s): Chest Image Reviewed: Yes I have reviewed radiologist's interpretation Prelimi
[2021-07-11 01:31] LABS: Reflex Lactic Add Lactic Reflex
[2021-07-11 01:34] VITALS: BP 145/70; PULSE 79; RESP 17; TEMP 36.7; O2SAT 99
== END 2021-07-11 01:39 | disposition home or self-care (01) ==
PROVIDERS: Emergency Provider Emergency Medicine; PCP Nurse Practitioner Family
DX: J44.1 Chronic obstructive pulmonary disease with (acute) exacerbation (principal); J18.9 Pneumonia, unspecified organism; Z72.0 Tobacco use; K21.9 Gastro-esophageal reflux disease without esophagitis; I25.10 Atherosclerotic heart disease of native coronary artery without angina pectoris; E78.5 Hyperlipidemia, unspecified; I10 Essential (primary) hypertension
CPT/HCPCS: 71046; 80048; 80076; 83605; 83880; 84484; 85025; 87040; 87070; 87205; 93005; 96374; 96375; 99284; C9803; U0003; U0005

== ENCOUNTER 2021-07-31 21:08 | Emergency (ER) | payer MEDICARE, MEDICAID, SELFPAY ==
[2021-07-31] VITALS (8 sets, daily range): BP systolic 92–129; BP diastolic 64–82; PULSE 79–91; RESP 18; TEMP 36.6–36.8; O2SAT 95–99; BMI 24.3
--- NOTE | 2021-07-31 21:36 | XR_ITS ---
PROCEDURE INFORMATION: Exam: XR Chest Exam date and time: 07/31/2021 10:21 PM Age: 61 years old Clinical indication: Pain; Chest pressure; Additional info: Fall TECHNIQUE: Imaging protocol: Radiologic exam of the chest. Views: 2 views. COMPARISON: CR XR CHEST 2V 07/10/2021 11:46 PM FINDINGS: Lungs: No consolidation. Pleural spaces: No pneumothorax. Heart/Mediastinum: No cardiomegaly. Bones/joints: Median sternotomy wires. IMPRESSION: No acute findings.
--- NOTE | 2021-07-31 21:38 | ECG_ITS ---
APPROVED REPORT Exam: Resting ECG HR:87 bpm ECG Measurements Heart Rate 87 AXES [place] 141 P 75 QRSd 140 QRS 17 QT 342 T 68 QTc 387 Conclusion SINUS RHYTHM WITH OCCASIONAL SUPRAVENTRICULAR PREMATURE COMPLEXES Left atrial abnormality RIGHT BUNDLE BRANCH BLOCK [120+ ms QRS DURATION, UPRIGHT V1, 40+ ms S IN I/aVL/V4/V5/V6] ABNORMAL ECG UNCONFIRMED REPORT Electronically signed by : Terry Perez MD 08/01/2021 21:44:41
--- NOTE | 2021-07-31 21:38 | CT_ITS ---
PROCEDURE INFORMATION: Exam: CT Head Without Contrast Exam date and time: 07/31/2021 10:16 PM Age: 61 years old Clinical indication: Other: Pain after fall TECHNIQUE: Imaging protocol: Computed tomography of the head without contrast. Radiation optimization: All CT scans at this facility use at least one of these dose optimization techniques: automated exposure control; mA and/or kV adjustment per patient size (includes targeted exams where dose is matched to clinical indication); or iterative reconstruction. COMPARISON: US CA CAROTID DUPLEX BI 12/08/2019 10:19 AM FINDINGS: Brain: White matter changes compatible with small vessel occlusive change. No mass. No hemorrhage. Cerebral ventricles: No ventriculomegaly. Paranasal sinuses: No fluid levels. Mastoid air cells: Visualized mastoid air cells are well aerated. Bones/joints: No acute fracture. Soft tissues: No significant soft tissue abnormality. IMPRESSION: No acute findings.
--- NOTE | 2021-07-31 21:38 | CT_ITS ---
PROCEDURE INFORMATION: Exam: CT Cervical Spine Without Contrast Exam date and time: 07/31/2021 10:18 PM Age: 61 years old Clinical indication: Neck pain; Additional info: Fall TECHNIQUE: Imaging protocol: Computed tomography of the cervical spine without contrast. Radiation optimization: All CT scans at this facility use at least one of these dose optimization techniques: automated exposure control; mA and/or kV adjustment per patient size (includes targeted exams where dose is matched to clinical indication); or iterative reconstruction. COMPARISON: CT HEAD/BRAIN WO CON 07/31/2021 10:16 PM FINDINGS: Bones/joints: Advanced multilevel degenerative changes. Median sternotomy wires. No acute fracture. Lungs: Lung apices are normal. Soft tissues: No soft tissue swelling. IMPRESSION: No acute findings.
[2021-07-31 21:51] LABS: Anion Gap 10.7 mEq/L (5-15); Blood Urea Nitrogen 13 mg/dl (9-20); Calcium 8.5 mg/dl (8.4-10.2); Carbon Dioxide 26 mmol/L (22.0-30.0); Chloride 103 mmol/L (98-107); Creatinine Clearance Estimated 61 mL/min (50-200); Estimated Glomerular Filt Rate 52 ml/min (>60); GFR (African American) 63 ML/MIN (>60); Glucose 98 mg/dl (74-100); Magnesium 1.3 mg/dl (1.6-2.3); Potassium 3.7 mmoL/L (3.5-5.1); Sodium 136 mmol/L (136-145)
[2021-07-31 21:54] LABS: Acetaminophen < 10 ug/ml (10-30); Ethyl Alcohol < 10 mg/dl (0-10); Salicylate < 1.0 mg/dL (2.0-20.0)
[2021-07-31 21:56] LABS: C-Reactive Protein 2.4 mg/L (0-4)
--- NOTE | 2021-07-31 22:05 | XR_ITS ---
PROCEDURE INFORMATION: Exam: XR Pelvis Exam date and time: 07/31/2021 10:26 PM Age: 61 years old Clinical indication: Pelvic pain; Additional info: Syncopal epsiode, fall TECHNIQUE: Imaging protocol: Radiologic exam of the pelvis. Views: 1 or 2 view. COMPARISON: CT ABDOMEN PELVIS W CON 06/16/2021 9:56 PM FINDINGS: Bones/joints: Status post right hip arthroplasty with single acetabular fixation screw and non cemented femoral stem. Physiologic alignment. Degenerative changes of the left hip. No acute fracture dislocation. Soft tissues: Unremarkable. IMPRESSION: Chronic changes without acute process.
--- NOTE | 2021-07-31 22:05 | HMH.EDSYNC ---
ED Disposition Clinical Impression: Syncope Qualifiers: Syncope type: unspecified Qualified Code(s): R55 - Syncope and collapse Disposition: Home, Self-Care Condition on Discharge: Good Instructions: DI for Syncope in Adults (Fainting) Additional Instructions: see card in am at 0900 Referrals: Loc Huffman APRN [Primary Care Provider] - Eugene Mackay MD [Staff Physician] - - Critical Care Critical Care Time: No Attestation: On 07/31/21, the high probability of a clinically significant, sudden or life threatening deterioration of the following system(s) required my full and direct attention, intervention and personal management. The time I documented below is in addition to time spent performing reported procedures but includes the following listed in this critical care notation. Medical Decision Making - Medical Records Medical records reviewed: Yes: I reviewed the patient's medical records. - Jose Inquiry Pt receiving controlled substance: No Vital Signs: 07/31/21 21:30 07/31/21 21:44 07/31/21 21:47 Temperature 97.9 F Temperature Source Oral Pulse Rate 85 Pulse Rate [Apical] 91 H Pulse Rate [Orthostatic Lying Right] 87 Pulse Rate [Orthostatic Standing Right] 88 Respiratory Rate 18 Blood Pressure 109/68 L Blood Pressure [Orthostatic Lying Right Arm] Blood Pressure [Orthostatic Sitting Right Arm] 92/64 L Blood Pressure [Orthostatic Standing Right Arm] 96/74 L Blood Pressure [Right Arm] 122/75 Blood Pressure Mean [Right Arm] 90 Blood Pressure Source [Right Arm] Automatic Cuff Blood Pressure Position [Right Arm] Sitting 02 Sat by Pulse Oximetry 97 96 Oxygen Delivery Method Room Air 07/31/21 21:48 07/31/21 21:49 07/31/21 21:54 Temperature Temperature Source Pulse Rate 85 89 Pulse Rate [Apical] Pulse Rate [Orthostatic Lying Right] 82 Pulse Rate [Orthostatic Standing Right] Respiratory Rate Blood Pressure 92/64 L 96/74 L Blood Pressure [Orthostatic Lying Right Arm] 109/68 L Blood Pressure [Orthostatic Sitting Right Arm] Blood Pressure [Orthostatic Standing Right Arm] Blood Pressure [Right Arm] Blood Pressure Mean [Right Arm] Blood Pressure Source [Right Arm] Blood Pressure Position [Right Arm] 02 Sat by Pulse Oximetry 95 95 Oxygen Delivery Method 07/31/21 22:01 Temperature Temperature Source Pulse Rate 79 Pulse Rate [Apical] Pulse Rate [Orthostatic Lying Right] Pulse Rate [Orthostatic Standing Right] Respiratory Rate Blood Pressure 129/82 Blood Pressure [Orthostatic Lying Right Arm] Blood Pressure [Orthostatic Sitting Right Arm] Blood Pressure [Orthostatic Standing Right Arm] Blood Pressure [Right Arm] Blood Pressure Mean [Right Arm] Blood Pressure Source [Right Arm] Blood Pressure Position [Right Arm] 02 Sat by Pulse Oximetry 95 Oxygen Delivery Method - Lab Data Lab results reviewed: Yes: I reviewed the patient's lab results. Lab Results 07/31/21 21:25: WBC 11.2 H, RBC 4.47 L, Hgb 13.5 L, Hct 42.2, MCV 94.6 H, MCH 30.3, MCHC 32.0, RDW 14.8, Plt Count 258, MPV 7.7, Neut % (Auto) 67.5, Lymph % (Auto) 24.9, [place] % (Auto) 5.3, Eos % (Auto) 0.8, Baso % (Auto) 1.5, Neut # (Auto) 7.5, Lymph # (Auto) 2.8, [place] # (Auto) 0.6, Eos # (Auto) 0.1, Baso # (Auto) 0.2, ESR 8 07/31/21 21:25: Sodium 136, Potassium 3.7, Chloride 103, Carbon Dioxide 26, Anion Gap 10.7, BUN 13, Creatinine 1.40 H, Estimated Creat Clear 61, Estimated GFR 52 L, Est GFR ( Amer) 63, Glucose 98, Calcium 8.5, Magnesium 1.3 L, Troponin I < 0.01, C-Reactive Protein 2.4, Procalcitonin 0.118, Salicylates < 1.0 L, Acetaminophen < 10 L 07/31/21 21:25: Plasma/Serum Alcohol < 10 Result diagrams: 07/31/21 21:25 07/31/21 21:25 Orders (Tests/Meds): ED MEDICATIONS Generic Name Dose Route Start Last Admin Trade Name Freq PRN Reason Stop Dose Admin Sodium Chloride 1,000 mls @ 999 mls/hr 07/31/21 21:45 07/31/21 21:48 So
[2021-07-31 22:10] LABS: Procalcitonin 0.118 ng/mL (0.0-2.0)
[2021-07-31 22:14] LABS: Troponin I < 0.01 ng/ml (0.00-0.034)
[2021-07-31 22:16] LABS: Erythrocyte Sedimentation Rate 8 mm/hr (0-20)
[2021-07-31 22:23] LABS: Basophils # 0.2 K/mm3 (0-0.2); Basophils % 1.5 % (0.1-2.0); Eosinophils # 0.1 K/mm3 (0.0-0.4); Eosinophils % 0.8 % (0.1-12.0); Hematocrit 42.2 % (42.0-52.0); Hemoglobin 13.5 g/dL (14.1-18.0); Lymphocytes # 2.8 K/mm3 (0.7-4.5); Lymphocytes % 24.9 % (10-50); Mean Corpuscular Hemoglobin 30.3 pg (27.0-31.2); Mean Corpuscular Volume 94.6 fl (80-94); Mean Platelet Volume 7.7 fl (7.4-10.4); Monocytes # 0.6 K/mm3 (0.1-1.0); Monocytes % 5.3 % (1.7-9.3); Neutrophils # 7.5 K/mm3 (1.8-7.8); Neutrophils % 67.5 % (37.0-80.0); Platelet Count 258 K/mm3 (142-424); Red Blood Count 4.47 M/mm3 (4.60-6.20); Red Cell Distribution Width 14.8 % (11.5-17.5); White Blood Count 11.2 K/mm3 (4.8-10.8)
[2021-07-31 23:25] LABS: Microscopic, Urine URINE MICROSCOPIC (MICROSCOPIC)
[2021-07-31 23:28] LABS: Appearance,Urine CLEAR (Clear); Bilirubin,Urine Negative (Negative); Blood, Urine Negative (Negative); Color,Urine YELLOW (Yellow); Glucose,Urine (UA) Negative (Negative); Ketones,Urine Negative (Negative); Leukocyte Esterase,Urine Negative (Negative); Nitrate,Urine Negative (Negative); Protein,Urine Negative (Negative); Specific Gravity, Urine <= 1.005 (1.005-1.030); Urobilinogen,Urine 0.2 EU/dl (0.2)
[2021-07-31 23:30] LABS: Squamous Epithelial Cell,Urine Occasional #/hpf (0-5); WBC,Urine Occasional #/hpf (0-3)
[2021-07-31 23:39] LABS: Barbiturates Screen,Urine Negative ng/ml (<200); Benzodiazepines Screen,Urine Negative ng/ml (<200)
[2021-07-31 23:40] LABS: Amphetamine/Metha Screen,Urine Negative ng/ml (<1000); Cannabinoid Screen,Urine Negative ng/ml (<50)
[2021-07-31 23:41] LABS: Cocaine Screen,Urine Negative ng/ml (<300)
[2021-07-31 23:42] LABS: Methadone Screen,Urine Negative ng/ml (<300); Opiate Screen,Urine Negative ng/ml (<300)
[2021-07-31 23:43] LABS: Phencyclidine Screen,Urine Negative ng/ml (<25)
== END 2021-07-31 23:42 | disposition home or self-care (01) ==
PROVIDERS: Emergency Provider Emergency Medicine; PCP Nurse Practitioner Family
DX: R55 Syncope and collapse (principal); S09.8XXA Other specified injuries of head, initial encounter; W19.XXXA Unspecified fall, initial encounter; Z79.82 Long term (current) use of aspirin; Z79.899 Other long term (current) drug therapy; Z88.0 Allergy status to penicillin; Z88.8 Allergy status to other drugs, medicaments and biological substances; J44.9 Chronic obstructive pulmonary disease, unspecified; I25.10 Atherosclerotic heart disease of native coronary artery without angina pectoris; K21.9 Gastro-esophageal reflux disease without esophagitis; E78.5 Hyperlipidemia, unspecified; I10 Essential (primary) hypertension; I25.2 Old myocardial infarction; F32.A Depression, unspecified; M19.90 Unspecified osteoarthritis, unspecified site
CPT/HCPCS: 70450; 71046; 72125; 72170; 80048; 80305; 80329; 81001; 83735; 84145; 84484; 85025; 85651; 86140; 93005; 96365; 99284

== ENCOUNTER 2021-08-04 16:37 | Emergency (ER) | payer MEDICARE, MEDICAID, SELFPAY ==
[2021-08-04 16:50] VITALS: BP 122/69; PULSE 74; RESP 15; TEMP 36.7; O2SAT 96
== END 2021-08-04 16:50 | disposition left against medical advice (07) ==
LOC: ER 16:46
PROVIDERS: Emergency Provider Emergency Medicine; PCP Nurse Practitioner Family
DX: Z53.29 Procedure and treatment not carried out because of patient's decision for other reasons (principal)

== ENCOUNTER 2021-08-05 12:17 | Observation (INO) | payer MEDICARE, MEDICAID, SELFPAY ==
[2021-08-05] VITALS (13 sets, daily range): BP systolic 83–126; BP diastolic 54–80; PULSE 58–85; RESP 13–18; TEMP 36.4–37; O2SAT 94–98; BMI 24.8; BMI 24.3
--- NOTE | 2021-08-05 12:19 | ECG_ITS ---
APPROVED REPORT Exam: Resting ECG HR:84 bpm ECG Measurements Heart Rate 84 AXES NM 138 P 81 QRSd 138 QRS 14 QT 344 T 83 QTc 385 Conclusion SINUS RHYTHM Right atrial abnormality RIGHT BUNDLE BRANCH BLOCK [120+ ms QRS DURATION, UPRIGHT V1, 40+ ms S IN I/aVL/V4/V5/V6] ABNORMAL ECG UNCONFIRMED REPORT Electronically signed by : Terry Perez MD 08/05/2021 16:59:35
--- NOTE | 2021-08-05 12:22 | PC.NURSE ---
ROX RYDER at
--- NOTE | 2021-08-05 12:25 | HMH.EDCP ---
ED Disposition Clinical Impression: Unstable angina pectoris Disposition: Admitted as Observation Condition on Discharge: Fair - Critical Care Critical Care Time: No Attestation: On , the high probability of a clinically significant, sudden or life threatening deterioration of the following system(s) required my full and direct attention, intervention and personal management. The time I documented below is in addition to time spent performing reported procedures but includes the following listed in this critical care notation. Medical Decision Making - Medical Records Medical records reviewed: Yes: I reviewed the patient's medical records. - Jose Inquiry Pt receiving controlled substance: No Vital Signs: 08/05/21 12:21 08/05/21 13:05 Temperature 98.6 F Temperature Source Oral Pulse Rate [Right Radial] 85 Respiratory Rate 16 Blood Pressure 83/54 L Blood Pressure [Right Arm] 100/69 L Blood Pressure Mean [Right Arm] 79 Blood Pressure Source [Right Arm] Automatic Cuff Blood Pressure Position [Right Arm] Sitting 02 Sat by Pulse Oximetry 94 L Oxygen Delivery Method Room Air - Lab Data Lab results reviewed: Yes: I reviewed the patient's lab results. Lab Results 08/05/21 12:25: WBC 10.9 H, RBC 4.66, Hgb 13.8 L, Hct 44.7, MCV 96.0 H, MCH 29.6, MCHC 30.8 L, RDW 15.0, Plt Count 317, MPV 7.7, Neut % (Auto) 60.5, Lymph % (Auto) 32.3, [place] % (Auto) 5.3, Eos % (Auto) 1.9, Baso % (Auto) 4.2 H, Neut # (Auto) 6.6, Lymph # (Auto) 3.5, [place] # (Auto) 0.6, Eos # (Auto) 0.2, Baso # (Auto) 0.5 H 08/05/21 12:25: Troponin I < 0.01, NT-Pro-B Natriuret Pep 123 08/05/21 12:25: Sodium 136, Potassium 3.9, Chloride 104, Carbon Dioxide 27, Anion Gap 8.9, BUN 14, Creatinine 1.60 H, Estimated Creat Clear 54, Estimated GFR 44 L, Est GFR ( Amer) 54 L, Glucose 125 H, Calcium 9.1 08/05/21 12:27: POC Glucose 120 H 08/05/21 13:35: SARS-CoV-2 (PCR) Not detected, Influenza A Untype (PCR) Not detected, Influenza Type B (PCR) Not detected Result diagrams: 08/05/21 12:25 08/05/21 12:25 Orders (Tests/Meds): ED MEDICATIONS Generic Name Dose Route Start Last Admin Trade Name Freq PRN Reason Stop Dose Admin Albuterol Sulfate 2 puff 08/05/21 14:40 Albuterol-Hfa 90mcg/Puff Inhaler 8gm IH 09/04/21 14:39 Q4HP PRN shortness of breath or wheezing Aspirin 325 mg 08/06/21 09:00 Aspirin Ec 325mg Tablet PO 09/05/21 08:59 DAILY MARKELL Clopidogrel Bisulfate 75 mg 08/06/21 09:00 Clopidogrel 75mg Tab PO 09/05/21 08:59 DAILY MARKELL Gabapentin 600 mg 08/05/21 21:00 Gabapentin 600mg Tablet PO 09/04/21 20:59 TID MARKELL Isosorbide Mononitrate 30 mg 08/06/21 09:00 Isosorbide Mckenzie 30mg Tab.Er.24h PO 09/05/21 08:59 DAILY MARKELL Nitroglycerin 0.4 mg 08/05/21 12:52 08/05/21 12:52 Nitroglycerin 0.4mg Sl Tablet SL 09/04/21 12:51 0.4 mg Q5MINP PRN Administration Chest Pain Non-Formulary Medication 1 cap 08/06/21 09:00 Amlodipine Besylate/Benazepril [Amlodipine-Benazepril 5-10 Mg] PO 09/05/21 08:59 DAILY MARKELL Non-Formulary Medication 80 mg 08/05/21 21:00 Atorvastatin Calcium [Lipitor 80mg Tablet*] PO 09/04/21 20:59 HS MARKELL Non-Formulary Medication 5 mg 08/06/21 09:00 Nebivolol Hcl [Bystolic] PO 09/05/21 08:59 DAILY MARKELL Non-Formulary Medication 150 mg 08/05/21 14:40 Trazodone Hcl PO HSP PRN Sleep Pantoprazole Sodium 40 mg 08/05/21 21:00 Pantoprazole 40mg Tablet PO 09/04/21 20:59 BID MARKELL Ranolazine 500 mg 08/05/21 21:00 Ranolazine 500mg Er Tablet PO 09/04/21 20:59 BID MARKELL Discontinued Medications Generic Name Dose Route Start Last Admin Trade Name Isacc PRN Reason Stop Dose Admin Aspirin 324 mg 08/05/21 12:30 08/05/21 12:39 Aspirin 81mg Chewable Tablet PO 08/05/21 12:31 324 mg ONCE ONE Administration Enoxaparin Sodium 90 mg 08/05/21 13:05 08/05/21 13:33 Enoxaparin 100mg/Ml Syringe
--- NOTE | 2021-08-05 12:29 | XR_ITS ---
FINAL REPORT CLINICAL HISTORY: CHEST PAIN ALL OVER CHEST, SMOKER COMPARISON: 07/31/2021 FINDINGS: SINGLE-VIEW CHEST The heart size is normal. The patient is status post median sternotomy. There is mild left base scarring. The lungs are otherwise clear. There is no pneumothorax. IMPRESSION: No acute cardiopulmonary process. Reviewed, Interpreted and Dictated by Claus Virk III, MD Transcribed by Mikayla Rosenbaum Authenticated and [facility]
[2021-08-05 12:35] LABS: POC Glucose,Bedside 120 (70-110)
[2021-08-05 12:37] LABS: Basophils # 0.5 K/mm3 (0-0.2); Basophils % 4.2 % (0.1-2.0); Eosinophils # 0.2 K/mm3 (0.0-0.4); Eosinophils % 1.9 % (0.1-12.0); Hematocrit 44.7 % (42.0-52.0); Hemoglobin 13.8 g/dL (14.1-18.0); Lymphocytes # 3.5 K/mm3 (0.7-4.5); Lymphocytes % 32.3 % (10-50); Mean Corpuscular HGB Conc 30.8 g/dL (31.8-35.4); Mean Corpuscular Hemoglobin 29.6 pg (27.0-31.2); Mean Platelet Volume 7.7 fl (7.4-10.4); Monocytes # 0.6 K/mm3 (0.1-1.0); Monocytes % 5.3 % (1.7-9.3); Neutrophils # 6.6 K/mm3 (1.8-7.8); Neutrophils % 60.5 % (37.0-80.0); Platelet Count 317 K/mm3 (142-424); Red Blood Count 4.66 M/mm3 (4.60-6.20); White Blood Count 10.9 K/mm3 (4.8-10.8)
[2021-08-05 12:54] LABS: Chloride 104 mmol/L (98-107); Potassium 3.9 mmoL/L (3.5-5.1); Sodium 136 mmol/L (136-145)
[2021-08-05 12:57] LABS: Anion Gap 8.9 mEq/L (5-15); Blood Urea Nitrogen 14 mg/dl (9-20); Calcium 9.1 mg/dl (8.4-10.2); Carbon Dioxide 27 mmol/L (22.0-30.0); Creatinine Clearance Estimated 54 mL/min (50-200); Estimated Glomerular Filt Rate 44 ml/min (>60); GFR (African American) 54 ML/MIN (>60); Glucose 125 mg/dl (74-100)
[2021-08-05 12:59] LABS: NT Pro Brain Natriuretic Pep. 123 pg/mL (0-125); Troponin I < 0.01 ng/ml (0.00-0.034)
--- NOTE | 2021-08-05 13:07 | PC.NURSE ---
pt states relief of chest pain after nitro but no relief of pain in rt arm and rt side neck
[2021-08-05 13:42] LABS: Coronavirus 19, PCR Not Detected (NotDetected); Influenza A, PCR Not Detected (NotDetected); Influenza B, PCR Not Detected (NotDetected)
--- NOTE | 2021-08-05 14:03 | PC.NURSE ---
called dr cordova for dr figueroa, staff stated he was in a room and they would have him call when he gets out
--- NOTE | 2021-08-05 14:27 | CA_ITS ---
APPROVED REPORT EXAM: Comprehensive 2D, Doppler, and color-flow Echocardiogram Print Room Worker: Alcira Hernandez CRT Ht: 5 ft 10 in Wt: 173lbs BSA: 1.96 BP: 83/54 mmHg Indications: Chest Pain, COPD, Shortness of Breath, Hyperlipidemia, Hypertension/HDD, old mi, cabg, stents 5 wks ago 2D Dimensions LVOT 1.78 cm (M/F) 1.5-2.5 LA Volume 17.10 mL LA Volume Index 8.70 mL/m2 (M/F) 16-34 M-Mode Dimensions RVDd 3.39 cm (0.9-2.6) LA Diam 2.85 cm (1.9-4.0) LVDd 4.48 cm (3.5-5.7) Ao Diam 5.10 cm (2.0-3.7) LVDs 3.16 cm (3.5-5.7) IVSd 1.07 cm (0.6-1.1) PWd 0.68 cm (0.6-1.1) EF (Teich) 56.60% FS 29.50% EDV (Teich) 91.50 mL ESV (Teich) 39.70 mL Conclusion 1. Limited echocardiogram was obtained to evaluate left ventricular systolic function. Left ventricle is normal size mild concentric left ventricular hypertrophy, estimated ejection fraction 55% with moderate inferior basal wall hypokinesis. 2. No significant pericardial effusion noted. 3. Inferior vena cava normal size with normal inspiratory collapse. Electronically signed by : Lino Torre MD 08/06/2021 13:18:30
--- NOTE | 2021-08-05 14:36 | PC.NURSE ---
notified CV lab staff of echo, spoke with lidia
--- NOTE | 2021-08-05 14:38 | PC.NURSE ---
Spoke to Brianna in care management regarding patient admission
--- NOTE | 2021-08-05 14:38 | HMH.PHAINT ---
MEDICATION RECONCILIATION COMPLETED ON PATIENT USING EXTERNAL FILL HISTORY FROM PHARMACY. -JAVAN MCKAY, BOOKERD
--- NOTE | 2021-08-05 14:40 | PC.NURSE ---
checked on pt at this time, pt sleeping
--- NOTE | 2021-08-05 14:47 | PC.NURSE ---
cv lab staff at
--- NOTE | 2021-08-05 14:50 | PC.NURSE ---
neda delarosa in care management pt is OBS admission, notified ER
--- NOTE | 2021-08-05 15:20 | PC.NURSE ---
report called to floor
--- NOTE | 2021-08-05 15:39 | HMH.PHAVTE ---
[facility] Pharmacy VTE Monitoring - Patient Demographics Admission date: 08/05/21 Report Date: 08/05/21 Time: 15:39 Allergies/Adverse Reactions: Patient Allergies ibuprofen [IBUPROFEN] Allergy (Unknown, Verified 08/02/21 11:11) Unknown allergy reaction Penicillins [PENICILLINS] Allergy (Unknown, Verified 08/02/21 11:11) Unknown allergy reaction Height: 1.78 m Weight: 78.471 kg Patient Problems: Current Active Problems Unstable angina pectoris (Acute) - VTE Risk Labs: VTE Related Lab Results Hgb 13.8 g/dL (14.1-18.0) L 08/05/21 12:25 Hct 44.7 % (42.0-52.0) 08/05/21 12:25 Plt Count 317 K/mm3 (142-424) 08/05/21 12:25 BUN 14 mg/dl (9-20) 08/05/21 12:25 Creatinine 1.60 mg/dl (0.66-1.25) H 08/05/21 12:25 Estimated Creat Clear 54 mL/min (50-200) 08/05/21 12:25 Was VTE Risk Assessment Performed: No Clinical Trial Participant: No - Prophylaxis VTE Prophylaxis Ordered?: Yes Types of VTE Prophylaxis: TEDS Knee High, Pharmacological Location of Applied Device: Bilateral Lower Extremeties Pharmacologic Type: Enoxaparin
--- NOTE | 2021-08-05 17:21 | PC.NURSE ---
patient has been provided with a new ice pitcher and trash has been taken out
--- NOTE | 2021-08-05 18:13 | PC.NURSE ---
Patient c/o of SOA O2 RA 94%; added 2L NC - Respiratory notified; Has inspiratory & expectority wheezing
[2021-08-05 19:04] LABS: Troponin I < 0.01 ng/ml (0.00-0.034)
--- NOTE | 2021-08-05 19:05 | HMH.HP ---
*Admission Date: 08/05/21 *Chief complaint: Chest Pain *History of present illness: The patient presents to the emergency department after having spearing instant sharp midsternal chest pain approximately 1 hour prior to arrival. The patient took one of his own nitroglycerin tablets and the pain resolved about 4 minutes later. He has a known history of coronary artery disease and is status post bypass surgery as well as stent placement. The patient is a smoker (Per Dr. Carmen). Troponins negative x2 Chest x-ray shows no cardiopulmonary acute process [facility] History I have reviewed the patient's past medical history: Yes Medical History: Reports:: Chronic Obstructive Pulmonary Disease (COPD), Coronary Artery Disease, Depression, Gastroesophageal Reflux Disease(GERD), Hyperlipidemia, Hypertension, Myocardial Infarction Denies:: Cancer, Diabetes Mellitus Type 1, Diabetes Mellitus Type 2, Internal Pacemaker, MRSA, Seizures *Have you ever received a pneumonia vaccine?: Yes *Have you received a flu vaccine this season?: Yes Other Medical History: Reports: Arthritis, Other. Denies: Blood Transfusion Reaction Laterality Cases: Right: Total Hip Replacement Other Surgeries: Yes: CABG, Cardiac Catheterization, Cardiac Surgery, Colonoscopy, Coronary Stent (; 06/2020), Hernia Repair, Other. No: Pacemaker Amputation: No Fractures: No - *Social History Last grade of school completed: 9th or 10th Smoking Status: Current every day smoker Tobacco Type: cigarettes # Packs/Day (cigarettes): 1 #Yrs smoked (if former smoker): 40 Alcohol Intake: never Alcohol Intake Frequency:: 3 or more drinks per day Substance Use Type: denies use *Occupational Status:: retired Housing: house Household Members: none *Travel in the last 8 weeks: None - Psychiatric History Pschychiatric History:: Reports:: Depression Family Hx:: Asthma, Cancer, Coronary Artery Disease, Diabetes, Heart Attack, Hyperlipidemia, Hypertension Review of Systems - Review of Systems Review of systems:: pertinent systems reviewed and negative unless documented below - Constitutional Reports fatigue - Eyes Denies blurry vision, Denies double vision - ENT Denies bleeding gums, Denies difficulty swallowing - *Cardiovascular Reports chest pain, Reports chest pain at rest, Reports chest pain with activity, Reports excessive sweating, Reports shortness of breath, Reports shortness of breath with activity - *Respiratory Reports cough, Reports shortness of breath, Reports shortness of breath with activity - *Gastrointestinal Denies abdominal pain, Denies change in bowel habits - *Musculoskeletal Denies body aches, Denies numbness - Integumentary/Breasts Denies change in skin color, Denies lesions - *Neurologic Denies unsteadiness, Denies dizziness, Denies localized weakness - Psychiatric Denies anxiety, Denies change in appetite, Denies difficulty concentrating - Endocrine Denies cold intolerance, Denies heat intolerance - Hematologic/Lymphatic Denies easy bleeding, Denies enlarged lymph nodes - Allergic/Immunologic Denies GI upset with certain foods, Denies tongue swelling Meds Home Medications Medication Instructions Recorded Confirmed Type Amlodipine Besylate/Benazepril 1 cap PO DAILY 06/16/21 08/05/21 History [Amlodipine-Benazepril 5-10 mg] Aspirin [Aspirin EC 325mg Tab] 325 mg PO DAILY 06/16/21 08/05/21 History Nitroglycerin 0.4 mg PO Q5MINP PRN 06/16/21 08/05/21 History Tiotropium Br/Olodaterol HCl 2 puff IH DAILY 06/16/21 08/05/21 History [Stiolto Respimat Inhal [place]] Trazodone HCl 150 mg PO HSP PRN 06/16/21 08/05/21 History gabapentin 600 mg tablet 600 mg PO TID #90 tab 07/06/21 08/05/21 Rx albuterol sulfate 90 mcg/actuation 2 puff IH Q4HP PRN #8.5 g 07/11/21 08/05/21 Rx aerosol inhaler nebivolol 5 mg tablet 5 mg PO DAILY tab 08/01/21 08/05/21 History dyshjlvjtgzxyna-dghuqvsemrlnyoz-[place] 10 ml PO Q4-6H PRN #200 ml 08/02/21 08/05/21 Rx 2 mg-
[2021-08-06] VITALS: BP 116/76; PULSE 65; PULSE 69; RESP 16; TEMP 36.5; O2SAT 96
[2021-08-06 00:11] LABS: Troponin I < 0.01 ng/ml (0.00-0.034)
[2021-08-06 04:00] VITALS: BP 142/81; PULSE 65; PULSE 74; RESP 18; TEMP 36.7; O2SAT 90
--- NOTE | 2021-08-06 04:00 | PC.NURSE ---
pt rested some through the night, pt denies chest pain but states that he doesnt feel any better, troponin levels were negative, telemetry reveals sinus rythm with BBB; pt with bilateral wheezing and required inhaler several times through the night, not other issues noted, no changes from previous assessment
[2021-08-06 05:00] VITALS: BMI 24.2
[2021-08-06 08:00] VITALS: BP 120/70; PULSE 72; PULSE 76; RESP 18; TEMP 36.6; O2SAT 94
[2021-08-06 08:02] LABS: Basophils # 0.2 K/mm3 (0-0.2); Basophils % 2.4 % (0.1-2.0); Eosinophils # 0.2 K/mm3 (0.0-0.4); Eosinophils % 2.2 % (0.1-12.0); Hematocrit 43.1 % (42.0-52.0); Hemoglobin 13.4 g/dL (14.1-18.0); Lymphocytes # 2.4 K/mm3 (0.7-4.5); Lymphocytes % 28.2 % (10-50); Mean Corpuscular Hemoglobin 29.4 pg (27.0-31.2); Mean Corpuscular Volume 94.7 fl (80-94); Mean Platelet Volume 7.5 fl (7.4-10.4); Monocytes # 0.4 K/mm3 (0.1-1.0); Monocytes % 4.9 % (1.7-9.3); Neutrophils # 5.4 K/mm3 (1.8-7.8); Neutrophils % 62.3 % (37.0-80.0); Platelet Count 216 K/mm3 (142-424); Red Blood Count 4.56 M/mm3 (4.60-6.20); Red Cell Distribution Width 14.8 % (11.5-17.5); White Blood Count 8.6 K/mm3 (4.8-10.8)
[2021-08-06 08:11] LABS: Chol/HDL Ratio 3.7 (1-3.5); Cholesterol 143 mg/dl (140-200); HDL Cholesterol 39 mg/dl (40-60); Magnesium 1.5 mg/dl (1.6-2.3); Triglycerides 134 mg/dl (30-150); VLDL Cholesterol 27 mg/dL (0-40)
[2021-08-06 08:22] LABS: Direct LDL Cholesterol 65.01 mg/dL (100-129)
--- NOTE | 2021-08-06 09:31 | HMH.DCSUM ---
General - General Admission date:: 08/05/21 Discharge date: 08/06/21 HPI HPI: The patient presents to the emergency department after having spearing instant sharp midsternal chest pain approximately 1 hour prior to arrival. The patient took one of his own nitroglycerin tablets and the pain resolved about 4 minutes later. He has a known history of coronary artery disease and is status post bypass surgery as well as stent placement. The patient is a smoker (Per Dr. Carmen). Troponins negative x2 Chest x-ray shows no cardiopulmonary acute process Hospital Course Hospital Course: pt has did well in hospital with no chest pain - pt with stable card enz and reports compliance with meds - recent card office note showed recent change in meds and had recent card cath with stents - pt krystal diet and activity - discussed with card and will adjust meds and see in card clinic sunday Objective Vital signs: Temp Pulse Resp BP Pulse Ox 97.9 F 72 18 120/70 94 L 08/06/21 08:00 08/06/21 08:00 08/06/21 08:00 08/06/21 08:00 08/06/21 08:00 no acute distress, average body habitus - *Routine HEENT Exam Head: Present: normocephalic Eye: Present: EOMI, PERRL ENT: Present: mucous membranes dry - *Routine Neck Exam Present: supple. Absent: JVD - *Routine Respiratory Exam Present: decreased breath sounds - *Routine Cardiovascular Exam Present: RRR, murmur - *Routine Abdominal Exam Present: soft - *Routine Extremities Exam Absent: calf tenderness - *Routine Skin Exam Present: intact - *Routine Neurological Exam Present: alert, CN II-XII intact. Absent: motor deficit - Routine Psychiatric Exam Present: normal affect Results Labs on day of discharge: Labs from last 24 hours 08/06/21 08/06/21 08/05/21 07:45 07:45 23:26 WBC 8.6 RBC 4.56 L Hgb 13.4 L Hct 43.1 MCV 94.7 H MCH 29.4 MCHC 31.0 L RDW 14.8 Plt Count 216 D MPV 7.5 Neut % (Auto) 62.3 Lymph % (Auto) 28.2 [place] % (Auto) 4.9 Eos % (Auto) 2.2 Baso % (Auto) 2.4 H Neut # (Auto) 5.4 Lymph # (Auto) 2.4 [place] # (Auto) 0.4 Eos # (Auto) 0.2 Baso # (Auto) 0.2 Sodium Potassium Chloride Carbon Dioxide Anion Gap BUN Creatinine Estimated Creat Clear Estimated GFR Est GFR ( Amer) Glucose POC Glucose Calcium Magnesium 1.5 L Troponin I < 0.01 NT-Pro-B Natriuret Pep Triglycerides 134 Cholesterol 143 LDL Cholesterol Direct 65.01 L VLDL Cholesterol 27 HDL Cholesterol 39 L Cholesterol/HDL Ratio 3.7 H SARS-CoV-2 (PCR) Influenza A Untype (PCR) Influenza Type B (PCR) 08/05/21 08/05/21 08/05/21 17:49 13:35 12:27 WBC RBC Hgb Hct MCV MCH MCHC RDW Plt Count MPV Neut % (Auto) Lymph % (Auto) [place] % (Auto) Eos % (Auto) Baso % (Auto) Neut # (Auto) Lymph # (Auto) [place] # (Auto) Eos # (Auto) Baso # (Auto) Sodium Potassium Chloride Carbon Dioxide Anion Gap BUN Creatinine Estimated Creat Clear Estimated GFR Est GFR ( Amer) Glucose POC Glucose 120 H Calcium Magnesium Troponin I < 0.01 NT-Pro-B Natriuret Pep Triglycerides Cholesterol LDL Cholesterol Direct VLDL Cholesterol HDL Cholesterol Cholesterol/HDL Ratio SARS-CoV-2 (PCR) Not detected Influenza A Untype (PCR) Not detected Influenza Type B (PCR) Not detected 08/05/21 08/05/21 08/05/21 12:25 12:25 12:25 WBC 10.9 H RBC 4.66 Hgb 13.8 L Hct 44.7 MCV 96.0 H MCH 29.6 MCHC 30.8 L RDW 15.0 Plt Count 317 MPV 7.7 Neut % (Auto) 60.5 Lymph % (Auto) 32.3 [place] % (Auto) 5.3 Eos % (Auto) 1.9 Baso % (Auto) 4.2 H Neut # (Auto) 6.6 Lymph # (Auto) 3.5 [place] # (Auto) 0.6 Eos # (Auto) 0.2 Baso # (Auto) 0.5 H Sodium
--- NOTE | 2021-08-11 15:40 | CARE MANAGER ---
Contacted patient related to hospital discharge. He states he is doing well and has no issues currently. They did not give him any new medications. He is aware of follow up appointment. Denies any questions or concerns. ETHAN Brito
== END 2021-08-06 10:48 | disposition home or self-care (01) ==
LOC: ER 12:47 → 2ND 14:50
PROVIDERS: Admitting Provider Emergency Medicine; Emergency Provider Emergency Medicine; PCP Nurse Practitioner Family; Visit Provider Emergency Medicine
DX: I25.110 Atherosclerotic heart disease of native coronary artery with unstable angina pectoris (principal); Z95.1 Presence of aortocoronary bypass graft; Z95.5 Presence of coronary angioplasty implant and graft; F17.210 Nicotine dependence, cigarettes, uncomplicated; J44.9 Chronic obstructive pulmonary disease, unspecified; I10 Essential (primary) hypertension; Z79.01 Long term (current) use of anticoagulants; N17.9 Acute kidney failure, unspecified; Z20.822 Contact with and (suspected) exposure to COVID-19
CPT/HCPCS: G0378; 36415; 71045; 80048; 80061; 82962; 83735; 83880; 84484; 85025; 93005; 93308; 94640; 99285; C9803; U0003; U0005

== ENCOUNTER 2021-08-09 10:05 | Day surgery (SDC) | payer MEDICARE, MEDICAID, SELFPAY ==
[2021-08-09] VITALS (19 sets, daily range): BP systolic 99–136; BP diastolic 54–79; PULSE 60–73; RESP 12–18; TEMP 36.5–37.2; O2SAT 89–97; BMI 23.3; BMI 24.1
[2021-08-09 10:23] LABS: Coronavirus 19, PCR Not Detected (NotDetected); Influenza A, PCR Not Detected (NotDetected); Influenza B, PCR Not Detected (NotDetected)
--- NOTE | 2021-08-09 10:59 | IR_ITS ---
APPROVED REPORT Patient Location: Outpatient PROCEDURES Selective coronary angiogram Selective engagement of saphenous vein graft to the right coronary Drug-eluting stent deployment in the distal saphenous vein graft supplying the right coronary artery which extended into the [place] right coronary artery INDICATION Coronary artery disease, Recalcitrant angina pectoris, History of coronary bypass surgery, Informed consent was obtained prior to the procedure. COMPLICATIONS NONE Estimated Blood Loss: LESS THAN 10 ML TECHNIQUE One percent lidocaine used to anesthetize the right anterior aspect of the wrist. The right radial artery was accessed via the Seldinger technique. A 6 Fris[place] sheath was placed in the right radial artery. 2.5 mg of verapamil, 800 mcg of nitroglycerin, 1mg Lidocaine and 5000 U Heparin were given through the arterial sheath. The papa catheter was also used to perform selective coronary angiography as well as selective engagement of saphenous vein graft to the right coronary artery. Close angiographic evaluation demonstrated a napkin ringlike lesion at the anastomosis of the saphenous vein graft going into the large dominant right coronary artery. Because of this therapeutic heparin was administered and a Choice PT extra-support wire was placed distally followed by 3 mm x 12 mm resolute [place] stent deployed at 20 jim reducing the stenosis to 0%. DAWIT-3 flow was present before and after the procedure at the end the procedure the apparatus was removed sheath was removed and hemostasis was achieved using TR banding patient was transferred the postop putting in stable condition ANGIOGRAPHIC RESULTS The left main artery Is widely patent has a stent in the proximal portion which extends in the proximal LAD. The left anterior descending artery There is an additional 30 to 40% stenosis along the third septal banking specialist with additional 40 to 50% mid vessel to distal stenoses. Distally there is a concentric 70 to 80% stenosis as the LAD wraps around the apex The circumflex artery Is a small vessel which appears less than 2 mm in diameter and gives rise to 2 small obtuse marginal arteries which are both patent The right coronary artery Dominant proximally occluded The RIOS ventriculogram reveals Not performed The left ventricular end-diastolic pressure Not measured Saphenous vein graft to the right coronary is widely patent all the way to the anastomosis. Close observation demonstrates a napkin ringlike lesion at the anastomosis creating a greater than 70% stenosis IMPRESSION Coronary artery disease as described above Successful stenting of the saphenous vein graft going to the dominant right coronary severe disease reduced to 0% with 1 drug-eluting stent Persistent disease throughout the LAD as described above none of which should be revascularized because of the distal nature of the disease Persistent severe stenosis in a vestigial nondominant circumflex artery PLAN 1. Dual antiplatelet therapy 2. Maximize antianginal medication 3. LDL less than 55 4. Avoidance of tobacco products 5. Risk factor modification Electronically signed by : Eugene Mackay MD 08/09/2021 13:59:04
[2021-08-09 14:13] LABS: CATHL Activated Clotting Time 269 SEC (74-125)
--- NOTE | 2021-08-09 15:00 | HMH.PHAVTE ---
[facility] Pharmacy VTE Monitoring - Patient Demographics Admission date: 08/09/21 Report Date: 08/09/21 Time: 15:00 Allergies/Adverse Reactions: Patient Allergies ibuprofen [IBUPROFEN] Allergy (Unknown, Verified 08/09/21 09:28) Unknown allergy reaction Penicillins [PENICILLINS] Allergy (Unknown, Verified 08/09/21 09:28) Unknown allergy reaction Height: 1.78 m Weight: 74 kg - Prophylaxis VTE Prophylaxis Ordered?: Yes Types of VTE Prophylaxis: TEDS Knee High Location of Applied Device: Bilateral Lower Extremeties
--- NOTE | 2021-08-09 15:00 | PC.NURSE ---
Pt arrived to the floor at this time
--- NOTE | 2021-08-09 15:04 | HMH.PHAINT ---
MEDICATION RECONCILIATION COMPLETED ON PATIENT USING EXTERNAL FILL HISTORY FROM PHARMACY, DISCHARGE SUMMARY FROM PREVIOUS ADMISSION, AND CARDIOLOGY OFFICE NOTES. -BOOKER CHOWDARYD
--- NOTE | 2021-08-09 15:08 | SUR.PHASEII ---
Call and spoke with Lesley Salamanca, pt's emergency medical technician/driver who was to pick him up today after his procedure and updated her on pt's POC.
--- NOTE | 2021-08-09 20:25 | PC.NURSE ---
Attempted to begin removing air at 1545 but site began to bleed right away, 4ml of air put back in and site stopped bleeding. Pulses remain strong, cap refil less than 3 seconds. Began to remove air at 1705 and 1735 but had to replace 4ml of air due to site beginning to bleed again. VS stable, pulses strong, and cap refill less than 3 seconds. Patient remained on room air and VS still stable.
--- NOTE | 2021-08-09 21:00 | PC.NURSE ---
pt rounded on, and asked if they needed anything. pt replied no. will continue to check on pt throughout the night.
[2021-08-10] VITALS: BP 124/78; PULSE 70; PULSE 71; RESP 16; TEMP 36.6; O2SAT 93
[2021-08-10 04:00] VITALS: BP 145/84; PULSE 70; PULSE 75; RESP 16; TEMP 36.4; O2SAT 92
[2021-08-10 04:11] VITALS: BMI 23.8
[2021-08-10 06:34] LABS: Basophils # 0.1 K/mm3 (0-0.2); Eosinophils # 0.2 K/mm3 (0.0-0.4); Eosinophils % 2.7 % (0.1-12.0); Hematocrit 40.7 % (42.0-52.0); Hemoglobin 12.8 g/dL (14.1-18.0); Lymphocytes # 1.8 K/mm3 (0.7-4.5); Lymphocytes % 22.4 % (10-50); Mean Corpuscular HGB Conc 31.6 g/dL (31.8-35.4); Mean Corpuscular Hemoglobin 29.3 pg (27.0-31.2); Mean Corpuscular Volume 92.8 fl (80-94); Mean Platelet Volume 7.5 fl (7.4-10.4); Monocytes # 0.5 K/mm3 (0.1-1.0); Monocytes % 5.7 % (1.7-9.3); Neutrophils # 5.4 K/mm3 (1.8-7.8); Neutrophils % 68.3 % (37.0-80.0); Platelet Count 204 K/mm3 (142-424); Red Blood Count 4.38 M/mm3 (4.60-6.20); Red Cell Distribution Width 15.3 % (11.5-17.5); White Blood Count 7.9 K/mm3 (4.8-10.8)
[2021-08-10 06:44] LABS: Anion Gap 8.2 mEq/L (5-15); Blood Urea Nitrogen 14 mg/dl (9-20); Calcium 8.5 mg/dl (8.4-10.2); Carbon Dioxide 26 mmol/L (22.0-30.0); Chloride 106 mmol/L (98-107); Creatinine Clearance Estimated 70 mL/min (50-200); Estimated Glomerular Filt Rate 62 ml/min (>60); GFR (African American) 75 ML/MIN (>60); Glucose 82 mg/dl (74-100); Potassium 4.2 mmoL/L (3.5-5.1); Sodium 136 mmol/L (136-145)
[2021-08-10 08:00] VITALS: BP 132/83; PULSE 70; PULSE 72; RESP 16; TEMP 36.7; O2SAT 93
--- NOTE | 2021-08-10 08:39 | PC.NURSE ---
Report received from Elena LONG in ED. Pt has been off of levo gtt since 0600 this AM and has remained normotensive. Per Dr cordova pt does not need to be transferred to step down bed.
--- NOTE | 2021-08-10 09:01 | PC.NURSE ---
Harris JOSEPH PA ROUNDED ON PT. CLEARED FOR D/C
--- NOTE | 2021-08-10 09:30 | HMH.PHACLD ---
Damion Guerrier has received discharge medication counseling on the following medications: PATIENT IS CURRENTLY TAKING AMLODIPINE/BENAZEPRIL 5/10 MG DAILY, ASPIRIN 81 MG DAILY, ATORVASTATIN 80 MG HS, PLAVIX 75 MG DAILY, AND NEBIVOLOL 5 MG DAILY.
== END 2021-08-10 09:00 | disposition home or self-care (01) ==
LOC: LAB 10:09 → CATHLAB 14:37 → 2ND 15:01
PROVIDERS: PCP Nurse Practitioner Family; Visit Provider Internal Medicine
DX: I25.110 Atherosclerotic heart disease of native coronary artery with unstable angina pectoris (principal); I25.708 Atherosclerosis of coronary artery bypass graft(s), unspecified, with other forms of angina pectoris; R06.09 Other forms of dyspnea; Z95.1 Presence of aortocoronary bypass graft; I95.2 Hypotension due to drugs; I10 Essential (primary) hypertension; F17.210 Nicotine dependence, cigarettes, uncomplicated; Z79.899 Other long term (current) drug therapy; Z20.822 Contact with and (suspected) exposure to COVID-19
CPT/HCPCS: 80048; 85025; 85347; 92937; 93459; 99152; 99153; C1725; C1769; C1876; C9604; C9803; J1644; Q9967; U0003; U0005

== ENCOUNTER → 2022-04-17 18:04 | Outpatient (CLI) | payer MEDICARE, MEDICAID, SELFPAY ==
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
== END ==
PROVIDERS: PCP Nurse Practitioner Family; Visit Provider Nurse Practitioner Family
DX: R07.89 Other chest pain (principal); V89.2XXA Person injured in unspecified motor-vehicle accident, traffic, initial encounter
CPT/HCPCS: 71046

== ENCOUNTER 2022-04-24 11:18 | Emergency (ER) | payer MEDICARE, MEDICAID, SELFPAY ==
--- NOTE | 2022-04-24 11:25 | ECG_ITS ---
APPROVED REPORT Exam: Resting ECG HR:84 bpm ECG Measurements Heart Rate 84 AXES [place] 145 P 73 QRSd 137 QRS 56 QT 380 T 67 QTc 422 Conclusion SINUS RHYTHM WITH OCCASIONAL SUPRAVENTRICULAR PREMATURE COMPLEXES RIGHT BUNDLE BRANCH BLOCK [120+ ms QRS DURATION, UPRIGHT V1, 40+ ms S IN I/aVL/V4/V5/V6] ABNORMAL ECG UNCONFIRMED REPORT Electronically signed by : Terry Perez MD 04/24/2022 17:28:38
[2022-04-24 11:32] VITALS: BP 146/120; PULSE 98; RESP 14; TEMP 36.3; O2SAT 98; BMI 21.5
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
--- NOTE | 2022-04-24 11:40 | PC.NURSE ---
rad at BS for portable xray
[2022-04-24 11:42] LABS: Basophils # 0.1 K/mm3 (0-0.2); Basophils % 0.7 % (0.1-2.0); Eosinophils # 0.1 K/mm3 (0.0-0.4); Eosinophils % 1.1 % (0.1-12.0); Hematocrit 47.4 % (42.0-52.0); Hemoglobin 16.1 g/dL (14.1-18.0); Lymphocytes # 1.4 K/mm3 (0.7-4.5); Lymphocytes % 14.9 % (10-50); Mean Corpuscular HGB Conc 34.1 g/dL (31.8-35.4); Mean Corpuscular Hemoglobin 30.1 pg (27.0-31.2); Mean Corpuscular Volume 88.3 fl (80-94); Mean Platelet Volume 7.5 fl (7.4-10.4); Monocytes # 0.5 K/mm3 (0.1-1.0); Monocytes % 5.3 % (1.7-9.3); Neutrophils # 7.3 K/mm3 (1.8-7.8); Platelet Count 377 K/mm3 (142-424); Red Blood Count 5.36 M/mm3 (4.60-6.20); Red Cell Distribution Width 14.2 % (11.5-17.5); White Blood Count 9.4 K/mm3 (4.8-10.8)
[2022-04-24 11:45] LABS: Chloride 98 mmol/L (98-107); Sodium 137 mmol/L (136-145)
[2022-04-24 11:48] LABS: Blood Urea Nitrogen 13 mg/dl (9-20); Creatinine Clearance Estimated 57 mL/min (50-200); Estimated Glomerular Filt Rate 56 ml/min (>60); GFR (African American) 68 ML/MIN (>60)
[2022-04-24 11:49] LABS: Anion Gap 7.9 mEq/L (5-15); Calcium 8.6 mg/dl (8.4-10.2); Carbon Dioxide 34 mmol/L (22.0-30.0); Glucose 80 mg/dl (74-100)
[2022-04-24 11:50] LABS: Potassium 2.9 mmoL/L (3.5-5.1)
[2022-04-24 11:58] LABS: NT Pro Brain Natriuretic Pep. 73.2 pg/mL (0-125)
--- NOTE | 2022-04-24 12:00 | PC.NURSE ---
notified ER of critical potassium result
[2022-04-24 12:01] VITALS: BP 98/70; PULSE 76; RESP 18; O2SAT 94
[2022-04-24 12:03] LABS: Troponin I < 0.01 ng/ml (0.00-0.034)
[2022-04-24 12:09] LABS: Alanine Aminotransferase 24 U/L (12-78); Albumin Level 4.1 g/dl (3.5-5.0); Alkaline Phosphatase 106 U/L (38-126); Aspartate Amino Transferase 26 U/L (17-59); Bilirubin,Direct 0.3 mg/dl (0.0-0.4); Bilirubin,Indirect 0.4 mg/dL (0.0-0.9); Bilirubin,Total 0.7 mg/dl (0.2-1.3); Bilirubin,Unconjugated 0.3 mg/dL (0.0-1.1); Total Protein,Serum 6.8 g/dl (6.3-8.2)
[2022-04-24 12:30] VITALS: BP 92/58; PULSE 78; RESP 14; O2SAT 98
--- NOTE | 2022-04-24 13:04 | PC.NURSE ---
Spoke with gwendolyn in respiratory regarding ABG order
[2022-04-24 13:16] LABS: ABG Base Excess 2.2 mmol/L (-2.4-2.3); ABG HCO3 26.3 mmhg (22.0-26.0); ABG Oxygen Saturation 93 % (90-100); ABG PH 7.45 mmol/L (7.35-7.45); ABG PO2 57.7 mmhg (80-100); ABG TCO2 27.5 mmhg (23-27)
[2022-04-24 13:17] LABS: Allen's Test ACCEPTABLE; Oxygen Room Air %; Source Left Radial
[2022-04-24 14:32] LABS: Troponin I < 0.01 ng/ml (0.00-0.034)
--- NOTE | 2022-04-24 14:45 | HMH.EDGENADL ---
Discharge Plan Disposition Patient Disposition: Home, Self-Care Condition: Good Prescriptions Prescriptions: New potassium chloride 10 mEq capsule, extended release 10 meq PO DAILY Qty: 7 0RF No Action tramadol 50 mg tablet 50 mg PO BID PRN (Reason: pain) Qty: 60 1RF gabapentin 600 mg tablet 600 mg PO TID Qty: 90 2RF azithromycin 250 mg tablet See Rx Instructions PO .COMPLEX Qty: 6 0RF Rx Instructions: take 500 mg today (day 1), then 250 mg for 4 days (days 2-5) prednisone 20 mg tablet 20 mg PO BID 5 Days Qty: 10 0RF clonazepam 0.5 mg tablet 0.5 mg PO BID Qty: 60 1RF nebivolol 5 mg tablet 5 mg PO DAILY nitroglycerin 0.4 mg tablet, sublingual See Rx Instructions .ROUTE .COMPLEX Qty: 75 0RF Dose Instruction: DISSOLVE 1 TABLET UNDER THE TONGUE EVERY 5 MINUTES NEEDED FOR CHEST PAIN DIRECTED Rx Instructions: DISSOLVE 1 TABLET UNDER THE TONGUE EVERY 5 MINUTES NEEDED FOR CHEST PAIN DIRECTED atorvastatin 80 mg tablet 80 mg PO HS Qty: 90 3RF isosorbide mononitrate 30 mg tablet extended release 24 hr 30 mg PO DAILY Qty: 90 3RF sildenafil [Viagra] 100 mg tablet 100 mg PO DAILY PRN (Reason: sexual activity) Qty: 30 0RF Rx Instructions: administer 30 minutes to 4 hours before activity Stiolto Respimat 2.5-2.5 mcg/actuation mist See Rx Instructions .ROUTE .COMPLEX Qty: 12 0RF Dose Instruction: INHALE 2 PUFFS BY MOUTH ONE TIME DAILY Rx Instructions: INHALE 2 PUFFS BY MOUTH ONE TIME DAILY pantoprazole 40 mg tablet,delayed release (DR/EC) See Rx Instructions .ROUTE .COMPLEX Qty: 90 3RF Dose Instruction: TAKE ONE TABLET BY MOUTH TWICE DAILY FOR acid reflux Rx Instructions: TAKE ONE TABLET BY MOUTH TWICE DAILY FOR acid reflux meclizine 25 mg tablet See Rx Instructions .ROUTE .COMPLEX Qty: 90 0RF Dose Instruction: TAKE 1 TABLET EVERY DAY NEEDED FOR DIZZINESS. Rx Instructions: TAKE 1 TABLET EVERY DAY NEEDED FOR DIZZINESS. amlodipine-benazepril 5-10 mg capsule 1 cap PO DAILY Qty: 90 1RF albuterol sulfate 90 mcg/actuation HFA aerosol inhaler See Rx Instructions .ROUTE .COMPLEX Qty: 1 0RF Dose Instruction: INHALE 2 PUFFS EVERY 4 HOURS NEEDED FOR SHORTNESS OF BREATH OR WHEEZING Rx Instructions: INHALE 2 PUFFS EVERY 4 HOURS NEEDED FOR SHORTNESS OF BREATH OR WHEEZING ranolazine 500 mg tablet extended release 12 hr 500 mg PO BID Qty: 60 5RF aspirin 325 MG tablet 325 mg PO DAILY trazodone 150 MG tablet 150 mg PO HSP PRN (Reason: Sleep) clopidogrel 75 MG tablet 75 mg PO DAILY Referrals Follow up/Referrals: Loc Huffman APRN [Primary Care Provider] - See instructions Clinical Impressions Clinical Impression: Acute hypokalemia Discharge ED Provider: Surya Hernandez General Adult HPI General Chief complaint: Weakness Stated complaint: weakness,lightheaded Time Seen by Provider: 04/24/22 11:26 Mode of Arrival: Ambulatory Source of Information: Patient Limitations: No Limitations Description of Symptoms (Recalled from ER Triage Doc. by RN): Pt c/o weakness and lightheadedness recently, increased this am; reports [facility] w 4 stents 6-7 mo ago History of Present Illness HPI narrative: 62yo M presents to the ER secondary to weakness. Reports this has been ongoing for several days. No fever, no chest pain, no shortness of breath. Reports no change in daily medication. No known sick contact. Denies any focal numbness or paresthesia Related Data Home Medications Medication Instructions Recorded Confirmed aspirin 325 mg tablet,delayed 325 mg PO DAILY heart health 06/16/21 04/13/22 release trazodone 150 mg tablet 150 mg PO HSP PRN Sleep 06/16/21 04/13/22 nebivolol 5 mg tablet 5 mg PO DAILY Hypertension 08/01/21 04/13/22 clopidogrel 75 mg tablet 75 mg PO DAILY [employer] 08/05/21 04/13/22 Previous Rx's
[2022-04-24 15:10] VITALS: BP 115/78; PULSE 78; RESP 18; TEMP 36.7; O2SAT 97
== END 2022-04-24 15:10 | disposition home or self-care (01) ==
PROVIDERS: Emergency Provider Family Medicine; PCP Nurse Practitioner Family
DX: E87.6 Hypokalemia (principal); R53.1 Weakness; R42 Dizziness and giddiness; R53.83 Other fatigue; R94.31 Abnormal electrocardiogram [ECG] [EKG]
CPT/HCPCS: 71045; 80048; 80076; 82803; 83880; 84484; 85025; 93005; 99285

== ENCOUNTER → 2022-06-09 14:44 | Outpatient (CLI) | payer MEDICARE, MEDICAID, SELFPAY ==
[2022-06-09 14:11] LABS: Amphetamine/Metha Screen,Urine Negative ng/ml (<1000)
[2022-06-09 14:12] LABS: Barbiturates Screen,Urine Negative ng/ml (<200)
[2022-06-09 14:13] LABS: Benzodiazepines Screen,Urine Positive ng/ml (<200); Cannabinoid Screen,Urine Negative ng/ml (<50)
[2022-06-09 14:14] LABS: Cocaine Screen,Urine Negative ng/ml (<300)
[2022-06-09 14:15] LABS: Methadone Screen,Urine Negative ng/ml (<300); Opiate Screen,Urine Negative ng/ml (<300)
[2022-06-09 14:16] LABS: Phencyclidine Screen,Urine Negative ng/ml (<25)
== END ==
PROVIDERS: PCP Nurse Practitioner Family; Visit Provider Nurse Practitioner Family
DX: M25.511 Pain in right shoulder (principal)
CPT/HCPCS: 80305

== ENCOUNTER 2022-10-31 10:25 | Emergency (ER) | payer MEDICARE, MEDICAID, SELFPAY ==
[2022-10-31] VITALS (11 sets, daily range): BP systolic 106–135; BP diastolic 65–88; PULSE 72–92; RESP 11–17; TEMP 36.9; O2SAT 90–95; BMI 21.5
--- NOTE | 2022-10-31 10:30 | ECG_ITS ---
APPROVED REPORT Exam: Resting ECG HR:85 bpm ECG Measurements Heart Rate 85 AXES OK 155 P 75 QRSd 144 QRS 61 QT 406 T 85 QTc 449 Conclusion SINUS RHYTHM WITH OCCASIONAL SUPRAVENTRICULAR PREMATURE COMPLEXES RIGHT BUNDLE BRANCH BLOCK [120+ ms QRS DURATION, UPRIGHT V1, 40+ ms S IN I/aVL/V4/V5/V6] ABNORMAL ECG UNCONFIRMED REPORT Electronically signed by : Terry Perez MD 10/31/2022 19:59:54
--- NOTE | 2022-10-31 10:43 | PC.NURSE ---
Dr. Valencia at [facility]
--- NOTE | 2022-10-31 11:05 | CT_ITS ---
FINAL REPORT TECHNIQUE: Thin section axial images are obtained through the brain after intravenous contrast injection. Multiplanar reconstructions were obtained from the axial data. Exam was performed using dose reduction technique per the ALARA principal. CLINICAL HISTORY: persistent dizziness, remitting FINDINGS: The intracerebral portions of the carotid arteries are patent. The anterior and middle cerebral arteries are patent. The basilar artery is patent. The left vertebral artery is dominant. The posterior cerebral arteries arise from the basilar artery. [place] of [place] is intact. There is no significant stenosis, aneurysm, or AVM. IMPRESSION: Unremarkable CT angiogram of the intracerebral vasculature. Reviewed, Interpreted and Dictated by Becca Bey MD Transcribed by Nilton Harvey Authenticated and . [facility]
--- NOTE | 2022-10-31 11:05 | CT_ITS ---
FINAL REPORT TECHNIQUE: Axial imaging of the chest is obtained after the administration of contrast. 3-D MIP reformatted images were also obtained and reviewed per PE protocol. CLINICAL HISTORY: history of arterial disease, dizziness, SOA FINDINGS: There is no sign pulmonary embolus. The ascending aorta is aneurysmal at 4.2 cm. There is no dissection. There is no mediastinal, hilar, or axillary lymphadenopathy. There is evidence of granulomatous disease with underlying emphysema. The lungs are otherwise clear. There is no pleural or pericardial effusion. Limited evaluation of the upper abdomen is without acute abnormality. There is a mild chronic compression fracture mid lower thoracic vertebrae as compared to a 2 view chest x-ray from April 17, 2022. IMPRESSION: The ascending aortic aneurysm. No dissection. Reviewed, Interpreted and Dictated by Becca Bey MD Transcribed by Nilton Harvey Authenticated and . [facility]
--- NOTE | 2022-10-31 11:05 | CT_ITS ---
FINAL REPORT TECHNIQUE: Thin section axial images were obtained from skull base to vertex without contrast. Coronal reconstruction images were obtained from the axial data. Exam was performed using dose reduction technique. CLINICAL HISTORY: persistent dizziness, remitting COMPARISON: July 2021 FINDINGS: There is no mass effect or midline shift. There is no hydrocephalus. There is no intracranial hemorrhage. The posterior fossa is without acute abnormality. The basilar cisterns are preserved. The soft tissues are without acute abnormality. No acute osseous abnormality is identified. IMPRESSION: No acute intracranial abnormality. Reviewed, Interpreted and Dictated by Becca Bey MD Transcribed by Nilton Harvey Authenticated and [facility]
--- NOTE | 2022-10-31 11:05 | CT_ITS ---
FINAL REPORT TECHNIQUE: Thin section axial CT with IV contrast supplemented with multiplanar reconstruction under CT angiogram protocol. This study was performed with techniques to keep radiation doses as low as reasonably achievable (ALARA). Individualized dose reduction techniques using automated exposure control or adjustment of mA and/or kV according to the patient''s size were employed. NASCET criteria was utilized during interpretation. CLINICAL HISTORY: persistent dizziness, remitting FINDINGS: Aortic arch: Arch shows no significant narrowing. Great vessel origins are widely patent. Right carotid: Calcification of the proximal right ICA with less than 50% stenosis. More distal ICA is patent to the skull base. Left carotid: Calcified plaque at the bulb and proximal ICA with less than 50% stenosis. More distal ICA is patent to the skull base. Vertebral: Mild left vertebral dominant system. No significant stenosis is present. IMPRESSION: Less than 50% bilateral carotid stenosis Reviewed, Interpreted and Dictated by Becca Bey MD Transcribed by Nilton Harvye Authenticated and [facility]
--- NOTE | 2022-10-31 11:10 | PC.NURSE ---
notified rad staff of orders on pt
--- NOTE | 2022-10-31 11:12 | PC.NURSE ---
notified RT of vbg order
[2022-10-31 11:26] LABS: VBG Base Excess -2.5 mmol/L (-2.4-2.3); VBG HCO3 22.8 mmol/L (23-30); VBG Oxygen Saturation 85.1 % (50-70); VBG PCO2 40.5 mmol/L (35-51); VBG PH 7.37 mmol/L (7.31-7.41); VBG PO2 53.4 mmol/L (28-40); VBG Total CO2 24.1 mmol/L (23-27)
[2022-10-31 11:26] LABS: Alanine Aminotransferase 17 U/L (12-78); Albumin Level 3.8 g/dl (3.5-5.0); Albumin/Globulin Ratio 1.3 (1.1-1.8); Alkaline Phosphatase 67 U/L (38-126); Anion Gap 11.1 mEq/L (5-15); Aspartate Amino Transferase 29 U/L (17-59); Bilirubin,Total 0.7 mg/dl (0.2-1.3); Blood Urea Nitrogen 17 mg/dl (9-20); Calcium 8.2 mg/dl (8.4-10.2); Carbon Dioxide 31 mmol/L (22.0-30.0); Chloride 100 mmol/L (98-107); Creatinine Clearance Estimated 75 mL/min (50-200); Estimated Glomerular Filt Rate 76 ml/min (>60); GFR (African American) 92 ML/MIN (>60); Globulin 2.9 g/dL (1.3-3.2); Glucose 115 mg/dl (74-100); Potassium 3.1 mmoL/L (3.5-5.1); Sodium 139 mmol/L (136-145); Total Protein,Serum 6.7 g/dl (6.3-8.2)
[2022-10-31 11:31] LABS: Basophils # 0.1 K/mm3 (0-0.2); Basophils % 0.3 % (0.1-2.0); Eosinophils # 0.1 K/mm3 (0.0-0.4); Eosinophils % 0.4 % (0.1-12.0); Hematocrit 44.2 % (42.0-52.0); Hemoglobin 14.2 g/dL (14.1-18.0); Lymphocytes # 1.1 K/mm3 (0.7-4.5); Lymphocytes % 7.5 % (10-50); Mean Corpuscular Hemoglobin 29.2 pg (27.0-31.2); Mean Corpuscular Volume 91.4 fl (80-94); Mean Platelet Volume 7.7 fl (7.4-10.4); Monocytes # 0.5 K/mm3 (0.1-1.0); Monocytes % 3.6 % (1.7-9.3); Neutrophils # 12.8 K/mm3 (1.8-7.8); Neutrophils % 88.1 % (37.0-80.0); Platelet Count 324 K/mm3 (142-424); Red Blood Count 4.84 M/mm3 (4.60-6.20); Red Cell Distribution Width 14.5 % (11.5-17.5); White Blood Count 14.5 K/mm3 (4.8-10.8)
[2022-10-31 11:36] LABS: MANUAL DIFFERENTIAL MANUAL DIFFERENTIAL (MANUAL DIFF)
--- NOTE | 2022-10-31 11:39 | HMH.EDGENADL ---
Discharge Plan Disposition Patient Disposition: Home, Self-Care Chief Complaint: Dizziness Prescriptions Prescriptions: No Action clonazepam 0.5 mg tablet 0.5 mg PO BID Qty: 60 2RF gabapentin 600 mg tablet 600 mg PO TID Qty: 90 2RF trazodone 150 mg tablet 150 mg PO HSP PRN (Reason: Sleep) Qty: 90 2RF tramadol 50 mg tablet 50 mg PO BID PRN (Reason: pain) Qty: 60 2RF albuterol sulfate 90 mcg/actuation HFA aerosol inhaler See Rx Instructions .ROUTE .COMPLEX Qty: 1 3RF Dose Instruction: INHALE 2 PUFFS EVERY 4 HOURS NEEDED FOR SHORTNESS OF BREATH OR WHEEZING Rx Instructions: INHALE 2 PUFFS EVERY 4 HOURS NEEDED FOR SHORTNESS OF BREATH OR WHEEZING Vraylar 1.5 mg capsule 1.5 mg PO DAILY Qty: 30 2RF nitroglycerin 0.4 mg tablet, sublingual See Rx Instructions .ROUTE .COMPLEX Qty: 75 0RF Dose Instruction: DISSOLVE 1 TABLET UNDER THE TONGUE EVERY 5 MINUTES NEEDED FOR CHEST PAIN DIRECTED Rx Instructions: DISSOLVE 1 TABLET UNDER THE TONGUE EVERY 5 MINUTES NEEDED FOR CHEST PAIN DIRECTED atorvastatin 80 mg tablet 80 mg PO HS Qty: 90 3RF isosorbide mononitrate 30 mg tablet extended release 24 hr 30 mg PO DAILY Qty: 90 3RF ranolazine 500 mg tablet extended release 12 hr 500 mg PO BID Qty: 60 5RF nebivolol 5 mg tablet See Rx Instructions .ROUTE .COMPLEX Qty: 90 2RF Dose Instruction: TAKE 1 TABLET EVERY DAY Rx Instructions: TAKE 1 TABLET EVERY DAY clopidogrel 75 mg tablet See Rx Instructions .ROUTE .COMPLEX Qty: 90 3RF Dose Instruction: TAKE ONE TABLET BY MOUTH DAILY Rx Instructions: TAKE ONE TABLET BY MOUTH DAILY pantoprazole 40 mg tablet,delayed release (DR/EC) See Rx Instructions .ROUTE .COMPLEX Qty: 90 3RF Dose Instruction: TAKE ONE TABLET BY MOUTH TWICE DAILY FOR acid reflux Rx Instructions: TAKE ONE TABLET BY MOUTH TWICE DAILY FOR acid reflux meclizine 25 mg tablet See Rx Instructions .ROUTE .COMPLEX Qty: 90 0RF Dose Instruction: TAKE 1 TABLET EVERY DAY NEEDED FOR DIZZINESS. Rx Instructions: TAKE 1 TABLET EVERY DAY NEEDED FOR DIZZINESS. sildenafil [Viagra] 100 mg tablet 100 mg PO DAILY PRN (Reason: sexual activity) Qty: 30 0RF Rx Instructions: administer 30 minutes to 4 hours before activity Stiolto Respimat 2.5-2.5 mcg/actuation mist See Rx Instructions .ROUTE .COMPLEX Qty: 12 0RF Dose Instruction: INHALE 2 PUFFS BY MOUTH ONE TIME DAILY Rx Instructions: INHALE 2 PUFFS BY MOUTH ONE TIME DAILY amlodipine-benazepril 5-10 mg capsule 1 cap PO DAILY Qty: 90 1RF azithromycin [Zithromax Z-Evans] 250 mg tablet See Rx Instructions PO .COMPLEX Qty: 6 0RF Rx Instructions: For 250 mg dose pack: take 500 mg today (day 1), then 250 mg for 4 days (days 2-5) PO methylprednisolone [Medrol (Evans)] 4 mg tablets,dose pack See Rx Instructions PO PER PKG DIR Qty: 21 0RF Rx Instructions: PO PER PKG DIR aspirin 325 MG tablet 325 mg PO DAILY potassium chloride 10 mEq capsule, extended release 10 meq PO DAILY Qty: 7 0RF Referrals Follow up/Referrals: Cortez Martinez MD [Primary Care Provider] - See instructions Activity Restrictions/Add. Instructions Additional Instructions/Restrictions: Call your family doctor to establish care for this visit to the emergency department and schedule follow-up within 48 hours to ensure improvement. If you have any worsening of your condition or any other concerning signs or symptoms, return to the emergency department or your primary care doctor for further evaluation. Clinical Impressions Clinical Impression: Dizziness Discharge ED Provider: Kirt Valencia General Adult HPI General Chief complaint: Dizziness Stated complaint: dizzy, can't stay awake Time Seen by Provider: 10/31/22 10:36 Mode of Arrival: Ambulatory Source of Information: Patient Limitation
[2022-10-31 11:42] LABS: Troponin I < 0.01 ng/ml (0.00-0.034)
[2022-10-31 12:10] LABS: Lymphocytes % 13 % (10-50); Monocytes % 1 % (2-9); Neutrophils % 86 % (42-76); Platelet Estimate Normal; RBC Morphology Normal; Total Cells Counted 100
--- NOTE | 2022-10-31 13:27 | PC.NURSE ---
Assumed patient care at this time
--- NOTE | 2022-10-31 14:11 | PC.NURSE ---
Rounded on patient; nothing needed at this time. Call light within reach
[2022-10-31 14:48] LABS: Troponin I < 0.01 ng/ml (0.00-0.034)
== END 2022-10-31 15:44 | disposition home or self-care (01) ==
PROVIDERS: Emergency Provider Emergency Medicine; PCP Emergency Medicine
DX: R42 Dizziness and giddiness (principal); R53.1 Weakness; R53.83 Other fatigue; I10 Essential (primary) hypertension; E78.5 Hyperlipidemia, unspecified; J44.9 Chronic obstructive pulmonary disease, unspecified; I73.9 Peripheral vascular disease, unspecified; I65.29 Occlusion and stenosis of unspecified carotid artery; I25.10 Atherosclerotic heart disease of native coronary artery without angina pectoris; I25.2 Old myocardial infarction; F17.210 Nicotine dependence, cigarettes, uncomplicated; I45.19 Other right bundle-branch block
CPT/HCPCS: 70450; 70496; 70498; 71275; 80053; 82803; 84484; 85007; 85025; 93005; 96361; 96374; 99285; Q9967

== ENCOUNTER 2022-11-03 15:19 | Observation (INO) | payer MEDICARE, MEDICAID, SELFPAY ==
[2022-11-03] VITALS (13 sets, daily range): BP systolic 83–117; BP diastolic 55–79; PULSE 70–102; RESP 13–18; TEMP 36.4–37; O2SAT 92–99; BMI 22.2; BMI 21.4
--- NOTE | 2022-11-03 15:23 | ECG_ITS ---
APPROVED REPORT Exam: Resting ECG HR:102 bpm ECG Measurements Heart Rate 102 AXES MO 134 P 82 QRSd 138 QRS 69 QT 350 T 87 QTc 409 Conclusion SINUS TACHYCARDIA WITH OCCASIONAL SUPRAVENTRICULAR PREMATURE COMPLEXES POSSIBLE LEFT ATRIAL ENLARGEMENT [-0.1mV P-WAVE IN V1/V2] RIGHT BUNDLE BRANCH BLOCK [120+ ms QRS DURATION, UPRIGHT V1, 40+ ms S IN I/aVL/V4/V5/V6] ABNORMAL ECG UNCONFIRMED REPORT Electronically signed by : Terry Perez MD 11/06/2022 17:17:49
--- NOTE | 2022-11-03 15:28 | CT_ITS ---
PROCEDURE INFORMATION: Exam: CTA Neck With Contrast Exam date and time: 11/03/2022 4:10 PM Age: 62 years old Clinical indication: Other: Diplopia TECHNIQUE: Imaging protocol: Computed tomographic angiography of the neck with contrast. 3D rendering (Not supervised by radiologist): MIP and/or 3D reconstructed images were created by the technologist. Radiation optimization: All CT scans at this facility use at least one of these dose optimization techniques: automated exposure control; mA and/or kV adjustment per patient size (includes targeted exams where dose is matched to clinical indication); or iterative reconstruction. Contrast material: ISOVUE 370; Contrast volume: 100 ml; Contrast route: INTRAVENOUS (IV); REPORTING DATA: Count of CT and Cardiac NM exams in prior 12 months: This patient has received 4 known CTs and 0 known cardiac nuclear medicine studies in the 12 months prior to the current study. COMPARISON: CT ANGIO NECK 10/31/2022 11:58 AM FINDINGS: Right common carotid artery: No stenosis. No dissection or occlusion. Right internal carotid artery: No stenosis of the extracranial segment. No dissection or occlusion. Right external carotid artery: No occlusion or stenosis of the origin. Left common carotid artery: No stenosis. No dissection or occlusion. Left internal carotid artery: Mild stenosis of the extracranial segment at the bulb. Less than 50% by NASCET criteria. No dissection or occlusion. Left external carotid artery: No occlusion or stenosis of the origin. Right vertebral artery: No stenosis. No dissection or occlusion. Left vertebral artery: No stenosis. No dissection or occlusion. Soft tissues: Normal. No significant soft tissue swelling. Bones/joints: No acute fracture. IMPRESSION: Mild left ICA stenosis at the bulb, less than 50% by NASCET criteria. REFERENCES: NASCET CRITERIA. The degree of stenosis in the cervical segment of the internal carotid artery is based on NASCET criteria. Normal is no stenosis. Mild is less than 50% stenosis. Moderate is 50-69% stenosis. Severe is 70% to 99% stenosis. Total occlusion is no detectable patent lumen.
--- NOTE | 2022-11-03 15:28 | CT_ITS ---
PROCEDURE INFORMATION: Exam: CTA Chest With Contrast Exam date and time: 11/03/2022 4:13 PM Age: 62 years old Clinical indication: Other: Diplopia TECHNIQUE: Imaging protocol: Computed tomographic angiography of the chest with contrast. Exam focused on the arteries. 3D rendering (Not supervised by radiologist): MIP and/or 3D reconstructed images were created by the technologist. Radiation optimization: All CT scans at this facility use at least one of these dose optimization techniques: automated exposure control; mA and/or kV adjustment per patient size (includes targeted exams where dose is matched to clinical indication); or iterative reconstruction. Contrast material: ISOVUE 370; Contrast volume: 76 ml; Contrast route: INTRAVENOUS (IV); REPORTING DATA: Count of CT and Cardiac NM exams in prior 12 months: This patient has received 4 known CTs and 0 known cardiac nuclear medicine studies in the 12 months prior to the current study. COMPARISON: CT ANGIO CHEST 10/31/2022 12:05 PM FINDINGS: Pulmonary arteries: Normal. No pulmonary emboli. Aorta: Mild dilatation of the ascending aorta measuring 4.2 cm redemonstrated. Mild atherosclerotic changes. No evidence of dissection. Lungs: Calcified nodule posterior left lower lobe redemonstrated. Lung schuster otherwise clear. Pleural spaces: Unremarkable. No pneumothorax. No pleural effusion. Heart: Unremarkable. No cardiomegaly. No pericardial effusion. Coronary arteries: Moderate coronary artery calcifications suggesting coronary artery disease. Associated CABG changes. Lymph nodes: Unremarkable. No enlarged lymph nodes. Bones/joints: Unremarkable. No acute fracture. Soft tissues: Unremarkable. IMPRESSION: 1. Stable CT chest with mild dilatation of the ascending aorta. Advise clinical assessment and follow-up 2. Additional nonemergent findings as above. 3. No acute disease.
--- NOTE | 2022-11-03 15:28 | CT_ITS ---
PROCEDURE INFORMATION: Exam: CTA Head With Contrast, Arteriography Exam date and time: 11/03/2022 4:10 PM Age: 62 years old Clinical indication: Other: Diplopia TECHNIQUE: Imaging protocol: Computed tomographic angiography of the head with contrast. Exam focused on the arteries. 3D rendering (Not supervised by radiologist): MIP and/or 3D reconstructed images were created by the technologist. Radiation optimization: All CT scans at this facility use at least one of these dose optimization techniques: automated exposure control; mA and/or kV adjustment per patient size (includes targeted exams where dose is matched to clinical indication); or iterative reconstruction. Contrast material: ISOVUE 370; Contrast volume: 100 ml; Contrast route: INTRAVENOUS (IV); REPORTING DATA: Count of CT and Cardiac NM exams in prior 12 months: This patient has received 4 known CTs and 0 known cardiac nuclear medicine studies in the 12 months prior to the current study. COMPARISON: CT ANGIO HEAD 10/31/2022 11:58 AM FINDINGS: ANTERIOR CIRCULATION: Right internal carotid artery: Intracranial segment is patent with no significant stenosis. No aneurysm. Right middle cerebral artery: No occlusion or significant stenosis. No aneurysm. Right anterior cerebral artery: No occlusion or significant stenosis. No aneurysm. Left internal carotid artery: Intracranial segment is patent with no significant stenosis. No aneurysm. Left middle cerebral artery: No occlusion or significant stenosis. No aneurysm. Left anterior cerebral artery: No occlusion or significant stenosis. No aneurysm. POSTERIOR CIRCULATION: Right vertebral artery: No occlusion or significant stenosis. No aneurysm. Left vertebral artery: No occlusion or significant stenosis. No aneurysm. Basilar artery: No occlusion or significant stenosis. No aneurysm. Right posterior cerebral artery: No occlusion or significant stenosis. No aneurysm. Left posterior cerebral artery: No occlusion or significant stenosis. No aneurysm. Brain: No definite mass, mass effect, or midline shift. Cerebral ventricles: No ventriculomegaly. Bones/joints: Unremarkable. No acute fracture. Soft tissues: Unremarkable. IMPRESSION: No large vessel stenosis or occlusion.
--- NOTE | 2022-11-03 15:28 | CT_ITS ---
PROCEDURE INFORMATION: Exam: CTA Abdomen and Pelvis With Contrast Exam date and time: 11/03/2022 4:13 PM Age: 62 years old Clinical indication: Other: Diplopia TECHNIQUE: Imaging protocol: Computed tomographic angiography of the abdomen and pelvis with contrast. Exam focused on the arteries. 3D rendering (Not supervised by radiologist): MIP and/or 3D reconstructed images were created by the technologist. Radiation optimization: All CT scans at this facility use at least one of these dose optimization techniques: automated exposure control; mA and/or kV adjustment per patient size (includes targeted exams where dose is matched to clinical indication); or iterative reconstruction. Contrast material: ISOVUE 370; Contrast volume: 76 ml; Contrast route: INTRAVENOUS (IV); REPORTING DATA: Count of CT and Cardiac NM exams in prior 12 months: This patient has received 4 known CTs and 0 known cardiac nuclear medicine studies in the 12 months prior to the current study. COMPARISON: CT ABDOMEN PELVIS W CON 06/16/2021 9:56 PM FINDINGS: Aorta: Dulvsabu-vn-ugufim atherosclerotic changes of the aorta without evident aneurysm or significant narrowing of the aorta. No dissection. Celiac trunk and mesenteric arteries: No occlusion or significant stenosis. Renal arteries: No occlusion or significant stenosis. Right iliac arteries: Jwcgcxwz-vz-wkoubj atherosclerotic changes of the right iliac arteries. Mild narrowing of the common iliac artery. Ozffnbxu-ss-jwrrpo narrowing of the proximal internal iliac artery. Yroihydf-rr-mvcdjz and potentially severe narrowing of the mid right external iliac artery with additional multifocal areas of moderate narrowing. Left iliac arteries: Bkqyazcv-oj-plvfuc atherosclerotic changes of the left iliac arteries. Mild narrowing of the distal common iliac artery. Zmzowkmn-iv-wnudyf narrowing of the origin of the internal iliac artery. Pxnasyhf-ww-zroyox stenosis of the origin of the left external iliac artery and the distal left external iliac artery. Liver: Mild fatty liver changes with associated mild hepatomegaly measuring 17.4 cm noted. Liver otherwise unremarkable. Gallbladder and bile ducts: Unremarkable. No calcified stones. No ductal dilation. Pancreas: Unremarkable. No mass. No ductal dilation. Spleen: Unremarkable. No splenomegaly. Adrenal glands: Unremarkable. No mass. Kidneys and ureters: Unremarkable. No solid mass. No hydronephrosis. Stomach and bowel: Multiple diverticula of the sigmoid and descending colon. Colon otherwise unremarkable with no evidence of diverticulitis. GI tract structures otherwise unremarkable with no evident wall thickening allowing for incomplete distention. Appendix: Appendix is normal. No evidence of appendicitis. Intraperitoneal space: Unremarkable. No free air. No significant fluid collection. Lymph nodes: Unremarkable. No enlarged lymph nodes. Urinary bladder: Unremarkable. No mass. Reproductive: Unremarkable as visualized. Bones/joints: No acute fracture. Soft tissues: Unremarkable. IMPRESSION: 1. Pjfgkejj-ab-zfzqya multifocal atherosclerotic changes of the aorta and iliacs. No acute abnormality. 2. Severe narrowing of the mid right external iliac artery and gdcfduza-go-wvkmwg narrowing of the proximal and distal left external iliac artery. Wggajzbk-sq-cqffco narrowing of the origins of the internal iliac arteries. 3. Additional nonemergent findings as above.
[2022-11-03 15:39] LABS: Basophils # 0.1 K/mm3 (0-0.2); Basophils % 0.5 % (0.1-2.0); Eosinophils # 0.2 K/mm3 (0.0-0.4); Eosinophils % 1.8 % (0.1-12.0); Hematocrit 47.3 % (42.0-52.0); Hemoglobin 15.5 g/dL (14.1-18.0); Lymphocytes # 2.8 K/mm3 (0.7-4.5); Lymphocytes % 25.2 % (10-50); Mean Corpuscular HGB Conc 32.7 g/dL (31.8-35.4); Mean Corpuscular Hemoglobin 29.8 pg (27.0-31.2); Mean Corpuscular Volume 90.9 fl (80-94); Mean Platelet Volume 7.5 fl (7.4-10.4); Monocytes # 0.9 K/mm3 (0.1-1.0); Monocytes % 7.7 % (1.7-9.3); Neutrophils # 7.2 K/mm3 (1.8-7.8); Neutrophils % 64.8 % (37.0-80.0); Platelet Count 408 K/mm3 (142-424); Red Blood Count 5.21 M/mm3 (4.60-6.20); Red Cell Distribution Width 14.4 % (11.5-17.5); White Blood Count 11.1 K/mm3 (4.8-10.8)
[2022-11-03 15:40] LABS: Chloride 100 mmol/L (98-107)
[2022-11-03 15:41] LABS: Potassium 3.3 mmoL/L (3.5-5.1); Sodium 140 mmol/L (136-145)
[2022-11-03 15:43] LABS: Alanine Aminotransferase 20 U/L (12-78); Albumin Level 3.9 g/dl (3.5-5.0); Alkaline Phosphatase 63 U/L (38-126); Aspartate Amino Transferase 27 U/L (17-59); Bilirubin,Total 0.6 mg/dl (0.2-1.3); Blood Urea Nitrogen 20 mg/dl (9-20); Creatinine Clearance Estimated 51 mL/min (50-200); Estimated Glomerular Filt Rate 48 ml/min (>60); GFR (African American) 58 ML/MIN (>60)
[2022-11-03 15:44] LABS: Albumin/Globulin Ratio 1.4 (1.1-1.8); Anion Gap 9.3 mEq/L (5-15); Calcium 8.4 mg/dl (8.4-10.2); Carbon Dioxide 34 mmol/L (22.0-30.0); Globulin 2.7 g/dL (1.3-3.2); Glucose 121 mg/dl (74-100); Total Protein,Serum 6.6 g/dl (6.3-8.2)
--- NOTE | 2022-11-03 15:44 | CT_ITS ---
PROCEDURE INFORMATION: Exam: CT Head Without Contrast Exam date and time: 11/03/2022 4:06 PM Age: 62 years old Clinical indication: Other: Diplopia TECHNIQUE: Imaging protocol: Computed tomography of the head without contrast. Radiation optimization: All CT scans at this facility use at least one of these dose optimization techniques: automated exposure control; mA and/or kV adjustment per patient size (includes targeted exams where dose is matched to clinical indication); or iterative reconstruction. REPORTING DATA: Count of CT and Cardiac NM exams in prior 12 months: This patient has received 4 known CTs and 0 known cardiac nuclear medicine studies in the 12 months prior to the current study. COMPARISON: CT HEAD/BRAIN WO CON 10/31/2022 11:54 AM FINDINGS: Brain: Normal. No hemorrhage. Unremarkable white matter. No mass effect. Cerebral ventricles: No ventriculomegaly. Paranasal sinuses: Visualized sinuses are unremarkable. No fluid levels. Mastoid air cells: Visualized mastoid air cells are well aerated. Bones/joints: Unremarkable. No acute fracture. Soft tissues: Unremarkable. IMPRESSION: No acute intracranial abnormality.
--- NOTE | 2022-11-03 15:46 | PC.NURSE ---
Radiology aware of scans
[2022-11-03 15:47] LABS: Activated Partial Thrombo Time 26.8 seconds (22.8-30.6); INR 1.03 (0.9-1.1); Prothrombin Time 11.1 seconds (10.1-12.5)
[2022-11-03 16:05] LABS: Troponin I < 0.01 ng/ml (0.00-0.034)
--- NOTE | 2022-11-03 16:30 | HMH.EDGENADL ---
Discharge Plan Disposition Patient Disposition: Admitted Chief Complaint: Weakness Clinical Impressions Clinical Impression: Bulbar weakness, Acute hypokalemia, LAYLA (acute kidney injury) Discharge ED Provider: Kirt Valencia General Adult HPI General Chief complaint: Weakness Stated complaint: chest pain Time Seen by Provider: 11/03/22 15:23 Mode of Arrival: Ambulatory Source of Information: Patient Limitations: No Limitations Description of Symptoms (Recalled from ER Triage Doc. by RN): Patient reports being sent from Dr. Martinez's office related to being weak, dizzy and seeing double for 4 days. History of Present Illness HPI narrative: This is a 62-year-old male with history of hypertension, hyperlipidemia, CAD status post CABG, PAD, recently diagnosed thoracic aortic aneurysm at 4 cm presenting with dizziness, fall, slurred speech. Patient was seen a couple days in the ED by me, on 10/31. Follow-up with primary care today. Was found to be hypotensive and have bundle branch block on EKG, so so was sent back to the ER. Family at bedside able to provide history as well. States today, she was with him and he lost his balance, fell to the side, did not strike his head or lose consciousness. She states that his speech has been more slurred than usual, though patient is edentulous and this is difficult to discern. Subjectively slurred. Patient states he has been having double vision which is improved when closing 1 eye and blurry vision especially in the right eye. Denies chest pain, neck or back pain, bowel or bladder dysfunction, lower extremity weakness, upper extremity weakness, nausea or vomiting, diaphoresis, confusion, difficulty speaking, or any other concerns. Related Data Home Medications Medication Instructions Recorded Confirmed aspirin 325 mg tablet,delayed 325 mg PO DAILY heart health 06/16/21 11/03/22 release Previous Rx's Medication Instructions Recorded nitroglycerin 0.4 mg sublingual See Rx Instructions .Route 10/13/21 tablet .COMPLEX #75 tabs atorvastatin 80 mg tablet 80 mg PO HS Cholesterol #90 tabs 12/26/21 isosorbide mononitrate 30 mg 30 mg PO DAILY Hypertension #90 12/27/21 tablet,extended release 24 hr tabs potassium chloride 10 mEq 10 meq PO DAILY #7 caps 04/24/22 capsule,extended release nebivolol 5 mg tablet See Rx Instructions .Route 05/10/22 .COMPLEX #90 tabs clopidogrel 75 mg tablet See Rx Instructions .Route 06/19/22 .COMPLEX #90 tabs pantoprazole 40 mg tablet,delayed See Rx Instructions .Route 06/30/22 release .COMPLEX #90 tabs meclizine 25 mg tablet See Rx Instructions .Route 07/12/22 .COMPLEX #90 tabs sildenafil 100 mg tablet (Viagra) 100 mg PO DAILY PRN sexual 08/29/22 activity #30 tabs albuterol sulfate 90 mcg/actuation See Rx Instructions .Route 09/08/22 aerosol inhaler .COMPLEX #1 ea cariprazine 1.5 mg capsule 1.5 mg PO DAILY #30 caps 09/08/22 (Vraylar) clonazepam 0.5 mg tablet 0.5 mg PO BID #60 tabs 09/08/22 gabapentin 600 mg tablet 600 mg PO TID Pain #90 tabs 09/08/22 tramadol 50 mg tablet 50 mg PO BID PRN pain #60 tabs 09/08/22 trazodone 150 mg tablet 150 mg PO HSP PRN Sleep #90 tabs 09/08/22 Stiolto Respimat 2.5 mcg-2.5 See Rx Instructions .Route 09/25/22 mcg/actuation solution for .COMPLEX #12 grams inhalation (tiotropium-olodaterol) amlodipine 5 mg-benazepril 10 mg 1 cap PO DAILY Hypertension #90 10/16/22 capsule caps azithromycin 250 mg tablet See Rx Instructions PO .COMPLEX #6 10/30/22 (Zithromax Z-Evans) tabs methylprednisolone 4 mg tablets in See Rx Instructions PO PER PKG DIR 10/30/22 a dose pack (Medrol (Evans)) #21 tabs ranolazine 500 mg tablet,extended 500 mg PO BID ANGINA #60 tabs 11/02/22 release,12 hr Allergies Allergy/AdvReac Type Severity Reaction Status Date / Time ibuprofen [IBUPROFEN] Allergy Unknown Unknown Verified 11/03/22 14:41 allergy reaction Penicillins [PENICILLINS] Allergy Unknown Unknown Verified 11/03/22 14:41
[2022-11-03 17:40] LABS: Erythrocyte Sedimentation Rate 4 mm/hr (0-20)
--- NOTE | 2022-11-03 18:20 | PC.NURSE ---
Rounded on pt he is sound a sleep in bed(snoring) call light at bs
--- NOTE | 2022-11-03 18:31 | PC.NURSE ---
House notified of admission.
--- NOTE | 2022-11-03 19:43 | PC.NURSE ---
1938 RECEIVED PHONE REPORT FROM Bob URIAS RN/ED NURSE. PATIENT IS A 62 YO MALE ADMITTING FOR LAYLA/WEAKNESS/HYPOKALEMIA/HYPOMAG. ALLERIC TO [facility] AND [facility]. MAY BE TRANSFERED BY W/C.
[2022-11-03 19:52] LABS: Troponin I < 0.01 ng/ml (0.00-0.034)
--- NOTE | 2022-11-03 20:12 | EXP.HP ---
History of Present Illness *Admission Date: 11/03/22 *Reason for visit:: weakness *History of present illness: 62-year-old male presented to the ED from his PCP for hypotension and having a bundle branch block on EKG. PMHX of hypertension, hyperlipidemia, CAD status post CABG, PAD, recently diagnosed thoracic aortic aneurysm at 4 cm presenting with dizziness, fall, slurred speech. Family at bedside and states that today he lost his balance, fell to the side, did not strike his head or lose consciousness. Sister states that his speech has been more slurred than usual, though patient is edentulous and this is difficult to discern. Patient states he has been having double vision which is improved when closing 1 eye and blurry vision especially in the right eye. Denies chest pain, neck or back pain, bowel or bladder dysfunction, lower extremity weakness, upper extremity weakness, nausea or vomiting, diaphoresis, confusion, difficulty speaking, or any other concerns. His work up in the ED revealed slurred speech, V1 distribution numbness, right upper extremity numbness as compared to left, diplopia with bilateral vision, improved/resolved with unilateral vision. Visual schuster intact. EOMs intact. Otherwise neurologically symmetric. Negative inspiratory force ordered and with repeated attempts pt reached -60. The ED physician spoke with the hospitalist team for further medical management. He was given dexamethasone, folic acid, thiamine and LR @ 150 hr. On admission to the medical floor the pt is in no acute distress. He is neurological intact with no weakness noted. States his vision is blurred still. He also presented with an LAYLA and hypokelmia. His potassium was replaced in the ED. [facility] Disclaimer: The information contained in this section may have been updated after the patient was seen, as this information can be updated by other users. Medical History Bilateral carotid bruits CAD (coronary artery disease) Claudication COPD (chronic obstructive pulmonary disease) Dyspnea Encounter for pre-operative cardiovascular clearance HLD (hyperlipidemia) HTN (hypertension) Old myocardial infarction Tobacco dependence syndrome Surgical History Hx of CABG Social History (Updated 11/03/22 @ 21:38 by Kalpana Santoro RN) Smoking Status: Current every day smoker tobacco type: cigarettes packs per day: 1 second hand exposure: No alcohol intake: former substance use type: denies use current occupational status: unemployed Travel in the last 8 weeks: Inside the [place] household members: none housing: house number of children: 2 current occupational exposures/hazards: No caffeine: Yes Review of Systems Constitutional Constitutional: Reports weakness ENT Ears, Nose, Mouth, and Throat: Reports disequilibrium, Reports dizziness and Reports vertigo *Cardiovascular Cardiovascular: Denies chest pain and Denies dyspnea *Respiratory Respiratory: Denies dyspnea *Gastrointestinal Gastrointestinal: Reports system reviewed and no additional complaints, except as documented *Genitourinary Genitourinary: Reports system reviewed and no additional complaints, except as documented *Musculoskeletal Musculoskeletal: Reports system reviewed and no additional complaints, except as documented Integumentary/Breasts Skin/Breast: Reports system reviewed and no additional complaints, except as documented *Neurologic Neurologic: Reports disequilibrium, Reports dizziness, Reports vertigo and Reports weakness Meds Home Medications and Allergies Home Medications Medication Instructions Recorded Confirmed Type aspirin 325 mg tablet,delayed 325 mg PO DAILY heart health 06/16/21 11/03/22 History release atorvastatin 80 mg tablet 80 mg PO HS Cholesterol #90 tabs 12/26/21 11/03/22 Rx gabapentin 600 mg tablet 600 mg PO TID Pa
--- NOTE | 2022-11-03 20:14 | PC.NURSE ---
pt arrived to floor via wheelchair @19:50
--- NOTE | 2022-11-03 20:38 | PC.NURSE ---
1953 patient arrived to the floor via w/c.
[2022-11-03 21:45] LABS: Microscopic, Urine URINE MICROSCOPIC (MICROSCOPIC)
[2022-11-03 21:47] LABS: Appearance,Urine CLEAR (Clear); Bilirubin,Urine Negative (Negative); Blood, Urine Negative (Negative); Color,Urine YELLOW (Yellow); Glucose,Urine (UA) Negative (Negative); Ketones,Urine Negative (Negative); Leukocyte Esterase,Urine Negative (Negative); Nitrate,Urine Negative (Negative); Protein,Urine Negative (Negative); Specific Gravity, Urine <= 1.005 (1.005-1.030)
[2022-11-03 22:02] LABS: Benzodiazepines Screen,Urine Negative ng/ml (<200)
[2022-11-03 22:03] LABS: Amphetamine/Metha Screen,Urine Negative ng/ml (<1000)
[2022-11-03 22:04] LABS: Barbiturates Screen,Urine Negative ng/ml (<200); Methadone Screen,Urine Negative ng/ml (<300)
[2022-11-03 22:05] LABS: Cannabinoid Screen,Urine Negative ng/ml (<50)
[2022-11-03 22:06] LABS: Cocaine Screen,Urine Negative ng/ml (<300); Opiate Screen,Urine Negative ng/ml (<300)
[2022-11-03 22:07] LABS: Phencyclidine Screen,Urine Negative ng/ml (<25)
[2022-11-03 22:14] LABS: Troponin I < 0.01 ng/ml (0.00-0.034)
[2022-11-03 22:53] LABS: Bacteria,Urine Trace /lpf; Squamous Epithelial Cell,Urine Occasional #/hpf (0-5); WBC,Urine Occasional #/hpf (0-3)
[2022-11-04 04:00] VITALS: BP 119/71; PULSE 84; RESP 16; TEMP 36.5; O2SAT 91; BMI 21.7
--- NOTE | 2022-11-04 04:38 | PC.NURSE ---
PATIENT RESTING IN BED. NAD. DENIES PAIN OR DISCOMFORT. VSS/AFEBRILE. VOIDS PER URINAL.
[2022-11-04 06:53] LABS: Basophils % 0.1 % (0.1-2.0); Eosinophils % 0.1 % (0.1-12.0); Hematocrit 47.2 % (42.0-52.0); Hemoglobin 15.1 g/dL (14.1-18.0); Lymphocytes # 0.8 K/mm3 (0.7-4.5); Lymphocytes % 10.8 % (10-50); Mean Corpuscular Hemoglobin 29.5 pg (27.0-31.2); Mean Platelet Volume 8.1 fl (7.4-10.4); Monocytes # 0.2 K/mm3 (0.1-1.0); Monocytes % 2.6 % (1.7-9.3); Neutrophils # 6.7 K/mm3 (1.8-7.8); Neutrophils % 86.3 % (37.0-80.0); Platelet Count 355 K/mm3 (142-424); Red Blood Count 5.13 M/mm3 (4.60-6.20); Red Cell Distribution Width 14.4 % (11.5-17.5); White Blood Count 7.8 K/mm3 (4.8-10.8)
[2022-11-04 06:58] LABS: Anion Gap 9.5 mEq/L (5-15); Blood Urea Nitrogen 20 mg/dl (9-20); Calcium 8.2 mg/dl (8.4-10.2); Carbon Dioxide 28 mmol/L (22.0-30.0); Chloride 104 mmol/L (98-107); Creatinine Clearance Estimated 75 mL/min (50-200); Estimated Glomerular Filt Rate 76 ml/min (>60); GFR (African American) 92 ML/MIN (>60); Glucose 154 mg/dl (74-100); Potassium 4.5 mmoL/L (3.5-5.1); Sodium 137 mmol/L (136-145)
[2022-11-04 07:10] LABS: MANUAL DIFFERENTIAL MANUAL DIFFERENTIAL (MANUAL DIFF)
[2022-11-04 07:20] VITALS: BP 126/86; PULSE 86; RESP 20; TEMP 36.6; O2SAT 97
--- NOTE | 2022-11-04 08:49 | HMH.PHAINT1 ---
Pharmacy Intervention Comments: MEDICATION RECONCILIATION COMPLETED ON PATIENT USING EXTERNAL FILL HISTORY FROM PHARMACY AND LIST FROM CARDIOLOGY OFFICE. -JAVAN MCKAY, BOOKERD
--- NOTE | 2022-11-04 10:04 | EXP.DC.SUM ---
General Admission date:: 11/03/22 Discharge date: 11/04/22 HPI HPI HPI: 62-year-old male presented to the ED from his PCP for hypotension and having a bundle branch block on EKG. 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 He is chronically prescribed benzodiazepines and opioid therapy. Family at bedside and states that today he lost his balance, fell to the side, did not strike his head or lose consciousness. Sister states that his speech has been more slurred than usual, though patient is edentulous and this is difficult to discern. Patient states he has been having double vision which is improved when closing 1 eye and blurry vision especially in the right eye. Denies chest pain, neck or back pain, bowel or bladder dysfunction, lower extremity weakness, upper extremity weakness, nausea or vomiting, diaphoresis, confusion, difficulty speaking, or any other concerns. His work up in the ED revealed slurred speech, V1 distribution numbness, right upper extremity numbness as compared to left, diplopia with bilateral vision, improved/resolved with unilateral vision. Visual schuster intact. EOMs intact. Otherwise neurologically symmetric. Negative inspiratory force ordered and with repeated attempts pt reached -60. The ED physician spoke with the hospitalist team for further medical management. He was given dexamethasone, folic acid, thiamine and LR @ 150 hr. On admission to the medical floor the pt is in no acute distress. He is neurological intact with no weakness noted. States his vision is blurred still. He also presented with an LAYLA and hypokelmia. His potassium was replaced in the ED. Hospital Course Hospital Course Hospital Course: The patient was admitted to the telemetry unit with routine nursing interactions who report that he remained afebrile with stable heart rates and improved blood pressures with normal oxygen saturations at rest. The patient reported no diplopia, nystagmus, unusual headaches or dysarthria. He reports that he has been walking with a limp since his total hip replacement in 2019. He describes a chronic history of alcohol use disorder that is now in remission. He was identified with avascular necrosis of the right hip and underwent total hip arthroplasty 2019. He is chronically prescribed opioid and benzodiazepine therapy for his various orthopedic and osteoarthritis concerns. He describes a chronic tobacco use history but has never seen a fiction and nonfiction author and his 6-minute walk test as inpatient identifies needs for home O2. He is encouraged on compliance with his home inhalation therapy and chest imaging identifies no acute changes. He has a chronic history of peripheral vascular disease, recently diagnosed thoracic aortic aneurysm 4.2 cm and left internal carotid artery less than 50%. He is encouraged to continue with antiplatelet therapy, statin therapy and tobacco cessation. Previous coronary artery disease with CABG and left heart cath in 2021 is noted. His morning labs identify improvement and stability. His acute kidney injury resolved. He has identified improvement and inquired about discharge home. He understands the importance of complete tobacco cessation to improve his health. PT and OT evaluated the patient prior to discharge. We have recommended follow-up with a local transition specialist for vision evaluation. We have recommended follow-up with a local neurologist for his chronic vertigo. We have recommended follow-up with a local fiction and nonfiction author for his COPD which is most likely GOLD Class 3-4 based on oxygen needs with exertion. He will need to have pulmonary function studies performed to establish his FEV1 for treatment recommendations. Case j carlos
--- NOTE | 2022-11-04 10:17 | PC.NURSE ---
Addendum entered by Melodie Sampson RN 11/04/22 10:38: pt RA 02 sat 87% at rest Original Note: pts RA o2 sat while ambulating 78%
[2022-11-04 10:18] VITALS: O2SAT 78
--- NOTE | 2022-11-04 11:20 | HMH.PTEV ---
Physical Therapy Evaluation Rehab PT IP Evaluation Start: 11/04/22 08:46 Freq: ONCE Status: Active Protocol: Document 11/04/22 11:17 MAGMALORIE (Rec: 11/04/22 11:20 PHOEDNA [id number]) Subjective/History History History 62 yowm adm to [facility] with weakness. Hx of HTN, HLD< CAD S/P CABG, PAD, COPD, AAA. He reports he lives alone, family close by to check on him, and he is generally independent with all mobility and ADLs without AD. Subjective Subjective Pt reports no c/o pain or dizziness at this time. New diagnosis of cancer in past 12 No months? Rehab PT IP Eval Objective Appearance Patient Behavior Appropriate Patient Orientation Person,Place,Time Difficulty following instructions none Speech Pattern Clear Ambulation Patient Able to Ambulate Yes Ambulation Observation Ambulation Distance (feet) 75 Ambulation Assistive Device None Ambulation Ability Supervision/Stand by Balance Ability to Arise Able, uses arms to help Sitting Balance Steady, safe Standing Balance Steady, wide stance Dynamic Sitting Balance Ability Good Dynamic Standing Balance Ability Good Transfers Bed Transfer Ability Independent Chair Transfer Ability Independent Sit to Stand Bed Transfer Ability Independent Sit to Stand Chair Transfer Ability Independent Rehab PT IP prob,goals,plan Problems Date of Evaluation: 11/04/22 Discharge Plan PT Discharge Plan Pt is appropriate to return home once medically stable for d/c. Eval Complexity Eval Charge Codes 93379 - High Complexity PHYSICIAN CERTIFICATION: I certify the specified therapy services for Damion Guerrier are required, authorized, and reviewed every 30 days.
[2022-11-04 14:03] LABS: Lymphocytes % 14 % (10-50); Monocytes % 1 % (2-9); Neutrophils % 85 % (42-76); Platelet Estimate Normal; Total Cells Counted 100
[2022-11-04 14:04] LABS: RBC Morphology Normal
[2022-11-05 08:46] LABS: C-Reactive Protein 9.1 mg/L (0-4)
--- NOTE | 2022-11-06 08:51 | CARE MANAGER ---
Patient called and had questions regarding meals that his insurance provides after hospitalization. Advised patient to contact the number on the back of the insurance card to ask about those. Discussed his discharge instructions. He did receive his Oxygen but not his nebulizer. Contacted [facility] and they will deliver that today. Patient didn't seed cone picker the nebulizer medication either, but he states he will get it today. Offered to refer him to meals on wheels if he is having issues with food, but he denies needing it. He has already made an appointment with Dr. Martinez for . Denies any other questions or concerns. ETHAN Brito
[2022-11-14 08:17] LABS: AChR Binding Abs <0.03
[2022-11-14 08:18] LABS: AChR Blocking Abs 20
[2022-11-14 08:19] LABS: AChR Modulating Ab 0
== END 2022-11-04 11:48 | disposition home or self-care (01) ==
LOC: ER 16:50 → 2ND 18:47
PROVIDERS: Nurse Practitioner Critical Care Medicine; Admitting Provider Family Medicine; Emergency Provider Emergency Medicine; PCP Emergency Medicine; Visit Provider Family Medicine
DX: N17.9 Acute kidney failure, unspecified (principal); J44.9 Chronic obstructive pulmonary disease, unspecified; R53.1 Weakness; E87.6 Hypokalemia; I25.708 Atherosclerosis of coronary artery bypass graft(s), unspecified, with other forms of angina pectoris; Z95.1 Presence of aortocoronary bypass graft; I10 Essential (primary) hypertension; E78.2 Mixed hyperlipidemia; F17.210 Nicotine dependence, cigarettes, uncomplicated; J96.21 Acute and chronic respiratory failure with hypoxia; Z79.02 Long term (current) use of antithrombotics/antiplatelets; Z79.899 Other long term (current) drug therapy; R29.6 Repeated falls
CPT/HCPCS: 36415; 70450; 70496; 70498; 71275; 74175; 80048; 80053; 80305; 81001; 83519; 84484; 85007; 85025; 85610; 85651; 85730; 86140; 86255; 93005; 97163; 99285; G0378; J3475; Q9967

== ENCOUNTER → 2022-11-27 09:44 | Outpatient (CLI) | payer MEDICARE, MEDICAID, SELFPAY ==
[2022-11-27 10:20] VITALS: PULSE 84; PULSE 88
== END ==
PROVIDERS: PCP Nurse Practitioner Family; Visit Provider Nurse Practitioner Family
DX: R06.02 Shortness of breath (principal); J44.9 Chronic obstructive pulmonary disease, unspecified
CPT/HCPCS: 94060; 94640

== ENCOUNTER 2023-03-01 12:23 | Outpatient (CLI) | payer MEDICARE, MEDICAID, SELFPAY ==
[2023-03-01 13:19] LABS: Amphetamine/Metha Screen,Urine Negative ng/ml (<1000)
[2023-03-01 13:20] LABS: Barbiturates Screen,Urine Negative ng/ml (<200)
[2023-03-01 13:21] LABS: Benzodiazepines Screen,Urine Negative ng/ml (<200); Cannabinoid Screen,Urine Negative ng/ml (<50)
[2023-03-01 13:22] LABS: Cocaine Screen,Urine Negative ng/ml (<300); Methadone Screen,Urine Negative ng/ml (<300)
[2023-03-01 13:23] LABS: Phencyclidine Screen,Urine Negative ng/ml (<25)
[2023-03-01 13:24] LABS: Opiate Screen,Urine Negative ng/ml (<300)
[2023-03-07 10:13] LABS: Alprazolam Negative (Cutoff=100); Benzodiazepines Positive ng/mL (Cutoff=100); Clonazepam Positive (.); Clonazepam Confirm 188 ng/mL (Cutoff=100); Flurazepam Negative (Cutoff=100); Lorazepam Negative (Cutoff=100); Midazolam Negative (Cutoff=100); Temazepam Negative (Cutoff=100); Triazolam Negative (Cutoff=100)
[2023-03-08 09:22] LABS: Gabapentin,Urine >800.0 ug/mL (.)
== END 2023-03-01 23:59 ==
LOC: LAB.DROPOF 12:24
PROVIDERS: PCP Nurse Practitioner Family; Visit Provider Nurse Practitioner Family
DX: Z79.899 Other long term (current) drug therapy (principal)
CPT/HCPCS: 80307; 80346

== ENCOUNTER 2023-12-31 09:13 | Outpatient (CLI) | payer MEDICARE, MEDICAID, SELFPAY ==
--- NOTE | 2023-12-31 09:19 | CA_ITS ---
APPROVED REPORT EXAM: Comprehensive 2D, Doppler, and color-flow Echocardiogram Criminal Justice Program Director: Raven Alva RVT Ht: 5 ft 10 in Wt: 139lbs BSA: 1.79 BP: 97/60 mmHg Indications: CAD,COPD,SOA,SMOKER,HTN,HLD,CABG,DIZZINESS 2D Dimensions LA Volume 25.70 mL LA Volume Index 14.36 mL/m2 (M/F) 16-34 M-Mode Dimensions RVDd 3.27 cm (0.9-2.6) LA Diam 2.42 cm (1.9-4.0) LVDd 4.14 cm (3.5-5.7) LVDs 2.75 cm (3.5-5.7) IVSd 0.90 cm (0.6-1.1) PWd 0.68 cm (0.6-1.1) EF (Teich) 62.70% FS 33.60% EDV (Teich) 75.90 mL ESV (Teich) 28.30 mL LV Diastology E Decel Time 203 (160-240 msec) E/A Ratio 0.8 Aortic Valve MARIANA Index 1.74 cm2/m2 AoV Peak Kimani. 104.0 (50-130 cm/s) AI PHT 872.00 ms AO Peak GR. 4.40 mmHg AO Mean GR. 2.10 (<5 mmHg) AO VTI 16.9 (18-25 cm) MARIANA (VTI) 3.19 (2.5-4.5 cm2) Mitral Valve MV E Max Kimani. 52.0 (40-130 cm/s) MV A Velocity 67.0 (40-130 cm/s) E/A Ratio 0.77 MV PHT 60.0 ms Pulmonary Valve PV Peak Velocity 50.0 (50-150 cm/s) Tricuspid Valve TR P. Velocity 230.00 cm/s RAP Estimate 10.00 mmHg RVSP 31.20 mmHg Left Ventricle The left ventricle is normal size. The left ventricular systolic function is normal. The left ventricular ejection fraction is within the normal range. There is increased LV wall thickness. There is normal LV segmental wall motion. Transmitral Doppler flow pattern suggests impaired LV relaxation. LVEF is 55%. Right Ventricle Right ventricle is mildly dilated. Right ventricle is mildly hypokinetic. Atria The left atrium size is normal. The right atrium size is normal. There is no Doppler evidence of interatrial shunt. Aortic Valve The aortic valve is mildly thickened. There is no aortic valvular stenosis. Mild aortic regurgitation. Mitral Valve The mitral valve is normal in structure. No evidence of mitral valve stenosis. There is no mitral valve regurgitation noted. Tricuspid Valve The tricuspid valve leaflets are thin and pliable. Trace tricuspid regurgitation. There is insufficient TR jet to estimate RVSP. Trace pulmonic regurgitation. Pulmonic Valve The pulmonary valve is normal in structure. Great Vessels The aortic root is normal in size. The ascending aorta is mildly dilated, measuring 4.0 cm in diameter. IVC is normal in size and collapses >50% with inspiration. Pericardium There is no pericardial effusion. Other Information Study Quality: Fair Conclusion Normal LV systolic function. Mild RV dilation with mild reduction in RV function. Mild AI. The ascending aorta is mildly dilated, measuring 4.0 cm in diameter. Electronically signed by : Delphine Washington MD 01/09/2024 12:36:02
--- NOTE | 2023-12-31 09:19 | CA_ITS ---
FINAL REPORT TECHNIQUE: Alicia scale, color and spectral doppler images of the bilateral carotid arteries were obtained. CLINICAL HISTORY: DIZZINESS,CAD,SMOKER,HTN,HLD FINDINGS: Peak systolic velocity in the right internal carotid artery is 50 cm/sec. The internal carotid to common carotid artery ratio is 1.2. There is no significant carotid artery stenosis and calcified plaque at the bulb and proximal ICA. The right vertebral artery is normal in direction. Peak systolic velocity in the left internal carotid artery is 56 cm/sec. The internal carotid to common carotid artery ratio is 1.4. There is no significant carotid artery stenosis and calcified plaque at the bulb of the proximal ICA. The left vertebral artery is normal in direction. IMPRESSION: No ultrasound evidence of hemodynamically significant carotid artery stenosis. Normal peak systolic velocities and normal internal to common carotid artery ratios bilaterally. Reviewed, Interpreted and Dictated by Becca Bey MD Transcribed by Jaja Andrade Authenticated and [facility]
[2023-12-31 09:52] LABS: Alanine Aminotransferase 23 U/L (12-78); Albumin Level 4.3 g/dl (3.5-5.0); Alkaline Phosphatase 66 U/L (38-126); Aspartate Amino Transferase 31 U/L (17-59); Basophils # 0.1 K/mm3 (0-0.2); Basophils % 1.3 % (0.1-2.0); Bilirubin,Direct 0.4 mg/dl (0.0-0.4); Bilirubin,Indirect 0.3 mg/dL (0.0-0.9); Bilirubin,Total 0.7 mg/dl (0.2-1.3); Bilirubin,Unconjugated 0.3 mg/dL (0.0-1.1); Blood Urea Nitrogen 24 mg/dl (9-20); Calcium 9.4 mg/dl (8.4-10.2); Carbon Dioxide 25 mmol/L (22.0-30.0); Chloride 107 mmol/L (98-107); Chol/HDL Ratio 3.6 (1-3.5); Cholesterol 172 mg/dl (140-200); Eosinophils # 0.1 K/mm3 (0.0-0.4); Eosinophils % 1.6 % (0.1-12.0); Estimated Glomerular Filt Rate 61 ml/min (>60); GFR (African American) 74 ML/MIN (>60); Glucose 79 mg/dl (74-100); HDL Cholesterol 48 mg/dl (40-60); Hematocrit 42.8 % (42.0-52.0); Hemoglobin 14.7 g/dL (14.1-18.0); Lymphocytes # 2.4 K/mm3 (0.7-4.5); Lymphocytes % 28.2 % (10-50); Mean Corpuscular HGB Conc 34.3 g/dL (31.8-35.4); Mean Corpuscular Hemoglobin 30.3 pg (27.0-31.2); Mean Corpuscular Volume 88.3 fl (80-94); Mean Platelet Volume 6.9 fl (7.4-10.4); Monocytes # 0.5 K/mm3 (0.1-1.0); Monocytes % 6.3 % (1.7-9.3); Neutrophils # 5.3 K/mm3 (1.8-7.8); Neutrophils % 62.7 % (37.0-80.0); Platelet Count 361 K/mm3 (142-424); Potassium 4.2 mmoL/L (3.5-5.1); Red Blood Count 4.85 M/mm3 (4.60-6.20); Red Cell Distribution Width 14.4 % (11.5-17.5); Triglycerides 104 mg/dl (30-150); VLDL Cholesterol 21 mg/dL (0-40); White Blood Count 8.5 K/mm3 (4.8-10.8)
--- NOTE | 2023-12-31 10:14 | CT_ITS ---
FINAL REPORT TECHNIQUE: Axial imaging of the chest is obtained after the administration of contrast. 3-D MIP reformatted images were also obtained and reviewed per PE protocol. This study was performed with techniques to keep radiation doses as low as reasonably achievable (ALARA). Individualized dose reduction techniques using automated exposure control or adjustment of mA and/or kV according to the patient's size were employed. CLINICAL HISTORY: look at aorta COMPARISON: 10/31/2022 FINDINGS: The pulmonary arteries are well filled. There is no evidence of pulmonary embolus. The ascending aorta measures 4 cm in diameter, which is unchanged when compared to the prior scan of October 2022. No evidence of aortic dissection is seen. There is a patent graft arising from the anterior aorta extending to the right heart. There is no mediastinal, hilar, or axillary lymphadenopathy. The lungs are clear. There is no pleural or pericardial effusion. Limited evaluation of the upper abdomen is without acute abnormality. No acute osseous abnormality. IMPRESSION: Stable ascending aortic aneurysm, measuring 4 cm in size. A patent graft arises from the anterior aorta extending to the right heart. Reviewed, Interpreted and Dictated by Becca Bey MD Transcribed by Patricia Beach Authenticated and [facility]
[2023-12-31 10:23] LABS: Anion Gap 10.2 mEq/L (5-15); Sodium 138 mmol/L (136-145)
[2023-12-31 10:24] LABS: Free T4 (Free Thyroxine) 1.17 ng/dl (0.78-2.19)
[2023-12-31 10:25] LABS: Thyroid Stimulating Hormone 2.34 uIU/mL (0.465-4.68)
[2023-12-31 10:37] LABS: Direct LDL Cholesterol 109.92 mg/dL (100-129)
[2023-12-31] MEDS: 0.9 % SODIUM CHLORIDE 50 ML VIAL IV (10:50)
[2023-12-31] MEDS: IOPAMIDOL-370 (76%);100ML BOTTLE 80 ML IV (10:50)
[2023-12-31] MEDS: SODIUM CHLORIDE 0.9% 10ML SYR (RAD ONLY) 10 ML IV (10:50)
== END 2023-12-31 23:59 | disposition home or self-care (01) ==
LOC: RT 09:14
PROVIDERS: PCP Nurse Practitioner Family; Visit Provider Nurse Practitioner Family
DX: I34.0 Nonrheumatic mitral (valve) insufficiency (principal); I51.89 Other ill-defined heart diseases; R42 Dizziness and giddiness; R40.0 Somnolence; R06.02 Shortness of breath; I25.708 Atherosclerosis of coronary artery bypass graft(s), unspecified, with other forms of angina pectoris; I25.10 Atherosclerotic heart disease of native coronary artery without angina pectoris; E78.5 Hyperlipidemia, unspecified
CPT/HCPCS: 36415; 71275; 80048; 80061; 80076; 84439; 84443; 85025; 93306; 93880; Q9967